=== PATIENT | female | born 1955 | race African-American/Black ===

== ENCOUNTER 2019-05-12 20:59 | Inpatient (IN) | payer OTHER, MEDICAID ==
[~2019-05-12] VITALS: Ht 162.6 cm; Wt 57.2 kg
[~2019-05-12 20:59] MED LIST: ACET500T55 PO; ALPR0.254 PO; AMLO10TA8 PO; AMLO5TAB4 PO; ATOR40TA59 PO; BISA5TAB4 PO; CLON0.2T PO; CLON0.3T PO; CLON0.3T4 PO; DIAZ2TAB PO; DILT180C29 PO; DONE5TAB56 PO; DONE5TAB7 PO; DOXA4TAB3 PO; FOLI0.8T21 PO; FURO-68 PO; FURO40TA4 PO; HYDR-2769 PO; HYDR-2868 PO; HYDR-3135 PO; HYDR100T24 PO; HYDR12.553 PO; LABE300T2 PO; LISI-334 PO; LISI10TA PO; LISI1TAB23 PO; MINO2.5T12 PO; MIRT30TA3 PO; Nicotine 14MG TD; POLY17PO28 PO; POTA20TA4 PO; SEVE800T9 PO; SPIR25TA5 PO; SUCR500T PO; escitalopram oxalate
--- NOTE | 2019-05-12 21:23 | PHYS DOC ---
Past Medical History Past Medical History: CVA, Hypertension, PA, Renal Failure, Stroke Additional Past Medical Histor: Chronic Kidney Disease Past Surgical History: Cholecystectomy, Other Additional Past Surgical Histo: cardiac stents, when stroke fluid had to be drained from brain(per fam), Alcohol Use: None Drug Use: None Adult General Chief Complaint Chief Complaint: DIALYSIS PROBLEM HPI HPI Patient is a 63 year old female who presents with has had not gone to dialysis since . Patient states she did not go in the right. Patient also states that she has not been taking all her medicines and she does not know which one she has been taking. Patient states she has chest pain in the left chest, shortness of air, constipation. She rates her pain a 10 out of 10. Review of Systems Review of Systems Respiratory: Denies cough. shortness of breath [] Cardiovascular: Chest pain All other systems were reviewed and found to be within normal limits, except as documented in this note. Current Medications Current Medications Current Medications Medications (Trade) Dose Ordered Sig/Maria Antonia Start Time Stop Time Status Last Admin Dose Admin Ceftriaxone Sodium (Rocephin) 1 gm 1X ONCE 05/12/19 23:30 05/12/19 23:31 DC 05/12/19 23:34 1 GM Allergies Allergies Allergies Coded Allergies Type Severity Reaction Last Updated Verified hydromorphone Allergy Severe itching, sob 07/18/18 Yes metoprolol Allergy Intermediate Itching 07/18/18 Yes morphine Allergy Intermediate itching, sob 07/18/18 Yes Physical Exam Physical Exam Constitutional: Well developed, well nourished, no acute distress, non-toxic appearance. [] HENT: Normocephalic, atraumatic, bilateral external ears normal, oropharynx moist, no oral exudates, nose normal. [] Eyes: PERRLA, EOMI, conjunctiva normal, no discharge. [] Neck: Normal range of motion, no tenderness, supple, no stridor. [] Cardiovascular:Heart rate regular rhythm, no murmur [] Lungs & Thorax: Bilateral breath sounds clear to auscultation in upper lobes but diminished in lower lobes. [] Abdomen: Bowel sounds normal, soft, generalized tenderness, no masses, no pulsatile masses. [] Skin: Warm, dry, no erythema, no rash. [] Back: No tenderness, no CVA tenderness. [] Extremities: No tenderness, no cyanosis, no clubbing, ROM intact, Bilateral 2+ lower extremity edema. [] Neurologic: Alert and oriented X 3, normal motor function, normal sensory function, no focal deficits noted. [] Psychologic: Affect normal, judgement normal, mood normal. [] Current Patient Data Vital Signs Vital Signs Date Time Temp Pulse Resp B/P (MAP) Pulse Ox O2 Delivery O2 Flow Rate FiO2 05/12/19 23:34 83 26 192/94 (126) 97 Room Air 05/12/19 21:08 98.8 98.8 Lab Values Laboratory Tests Test 05/12/19 22:10 05/12/19 22:35 Urine Collection Type Unknown Urine Color Yellow Urine Clarity Cloudy Urine pH 7.5 Urine Specific [place] 1.010 Urine Protein 100 mg/dL (NEG-TRACE) Urine Glucose (UA) 100 mg/dL (NEG) Urine Ketones (Stick) Negative mg/dL (NEG) Urine Blood Small (NEG) Urine Nitrite Negative (NEG) Urine Bilirubin Negative (NEG) Urine Urobilinogen Dipstick 0.2 mg/dL (0.2 mg/dL) Urine Leukocyte Esterase Small (NEG) Urine RBC 3-5 /HPF (0-2) Urine WBC 11-20 /HPF (0-4) Urine Squamous Epithelial Cells Many /LPF Urine Bacteria Many /HPF (0-FEW) Urine Mucus Mod /LPF White Blood Count 7.0 x10^3/uL (4.0-11.0) Red Blood Count 3.64 x10^6/uL (3.50-5.40) Hemoglobin 11.0 g/dL (12.0-15.5) L Hematocrit 32.6 % (36.0-47.0) L Mean Corpuscular Volume 90 fL (79-100) Mean Corpuscular Hemoglobin 30 pg (25-35) Mean Corpuscular Hemoglobin Concent 34 g/dL (31-37) Red Cell Distribution Width 17.1 % (11.5-14.5) H Platelet Count 240 x10^3/uL (140-400) Neutrophils (%) (Auto) 57 % (31-73) Lymphocytes (%) (Auto) 35 % (24-48) Monocytes (%) (Auto) 5 % (0-9) Eosinophils (%) (Auto) 3 % (0-3) Basophils (%) (Auto) 0 % (0-3) Neutrophils # (Auto) 4.0 x10^3/uL (1.8-7.7) Lymphocytes # (Auto) 2.4 x10^3/uL (1.0-4.8) Monocytes # (Auto) 0.4 x10^3/uL (0.0-1.1) Eosinophils # (Auto) 0.2 x10^3/uL (0.0-0.7) Basophils # (Auto) 0.0 x10^3/uL (0.0-0.2) Sodium Level 142 mmol/L (136-145) Potassium Level 5.7 mmol/L (3.5-5.1) H Chloride Level 102 mmol/L (98-107) Carbon Dioxide Level 22 mmol/L (21-32) Anion Gap 18 (6-14) H Blood Urea Nitrogen 88 mg/dL (7-20) H Creatinine 11.7 mg/dL (0.6-1.0) H Estimated GFR (Cockcroft-Gault) 4.0 BUN/Creatinine Ratio 8 (6-20) Glucose Level 96 mg/dL (70-99) Calcium Level 9.6 mg/dL (8.5-10.1) Total Bilirubin 0.3 mg/dL (0.2-1.0) Aspartate Amino Transferase (AST) 9 U/L (15-37) L Alanine Aminotransferase (ALT) 12 U/L (14-59) L Alkaline Phosphatase 153 U/L (46-116) H Troponin I Quantitative 0.034 ng/mL (0.000-0.055) Total Protein 8.0 g/dL (6.4-8.2) Albumin 3.4 g/dL (3.4-5.0) Albumin/Globulin Ratio 0.7 (1.0-1.7) L Laboratory Tests 05/12/19 22:35 Laboratory Tests 05/12/19 22:35 EKG EKG SINUS RHYTHM, NO STEMI, LVH REPOLARIZATION[] Interpretation Time: [address] Mejia Radiology/Procedures Radiology/Procedures [] Impressions: [facility] [address] [place] [address] IMAGING REPORT Signed PATIENT: OLLIE LOCO ACCOUNT: [id number] : 1955 LOCATION: ER AGE: 63 SEX: F EXAM STATUS: PRE ER ORD. PHYSICIAN: CHRIS SAN APRN REASON: chest pain, soa PROCEDURE: PORTABLE CHEST 1V PORTABLE CHEST 1V History: Chest pain. Shortness of breath. Comparison: April 14, 2019 Findings: Mild diffuse interstitial thickening, decreased compared to prior. No pleural effusion. Enlarged cardiac silhouette, unchanged. No pneumothorax. Impression: 1. Mild diffuse interstitial thickening, may represent early pulmonary edema. Findings are overall decreased compared to prior. Electronically signed by: Benny Castle DO (05/12/2019 9:44 PM) [facility] DICTATED and SIGNED BY: BENNY CASTLE DO DATE: 05/12/192143 Course & Med Decision Making Course & Med Decision Making Patient is a 63 year old female who presents with has had not gone to dialysis since . Patient states she did not go in the right. Patient also states that she has not been taking all her medicines and she does not know which one she has been taking. Patient states she has chest pain in the left chest, shortness of air, constipation. She rates her pain a 10 out of 10. Lungs are cleared up her lobes but diminished in lower lobes bilaterally. Patient has 3+ edema to bilateral lower extremities. Abdomen is soft but tender all over. Blake valencia states she still makes a small amount of urine. Patient smells strongly of urine. Patient speaks in full clear sentences. Patient is able to ambulate from the wheelchair to her bed. Patient lives alone. Patient is alert and oriented. Skin is pink warm and dry. PERRLA. Patient has a history of kidney disease, hypertension, stroke without deficit, high cholesterol, heart attack. Patient denies headache, syncope, dizziness, weakness, numbness or tingling, visual changes, nausea, vomiting, abdominal pain. Patient states I just can't breathe. Chest Xray shows 1. Mild diffuse interstitial thickening, may represent early pulmonary edema. Findings are overall decreased compared to prior. Urinalysis shows UTI. Patient is ordered Rocephin. I have spoken to Dr. Bone who states that the patient will get dialysis in the morning. I Have also spoken to Dr. Jones for admission. Dragon Disclaimer Dragon Disclaimer This electronic medical record was generated, in whole or in part, using a voice recognition dictation system. The HEART Score for CP Pts HEART Score for Chest Pain: HEART Score for Chest Pain Response (Comments) Value History Moderately Suspicious 1 ECG Nonspecific Repolarizatio 1 Age >45 - < 65 1 Risk Factors >3 Risk Factors or Hx CAD 2 Troponin < Normal Limit 0 Total 5 Risk Factors: Risk Factors: DM, Current or recent (<one month) smoker, HTN, HLP, family history of CAD, obesity. Risk Scores: Score 0 - 3: 2.5% MACE over next 6 weeks - Discharge Home Score 4 - 6: 20.3% MACE over next 6 weeks - Admit for Clinical Observation Score 7 - 10: 72.7% MACE over next 6 weeks - Early Invasive Strategies Departure Departure Impression: Primary Impression: Hyperkalemia Additional Impressions: Missed dialysis Chest pain Disposition: ADMITTED INPATIENT Admitting Physician: Camilo Bolaños Parra, Michael Condition: STABLE Referrals: Tonya BOLAÑOS MD (PCP) Problem Qualifiers Additional Impressions: Chest pain Chest pain type: unspecified Qualified Codes: R07.9 - Chest pain, unspecified CHRIS SAN [employer] FINISHER May 12, 2019 21:23
--- NOTE | 2019-05-12 21:47 | RAD ---
PORTABLE CHEST 1V History: Chest pain. Shortness of breath. Comparison: April 14, 2019 Findings: Mild diffuse interstitial thickening, decreased compared to prior. No pleural effusion. Enlarged cardiac silhouette, unchanged. No pneumothorax. Impression: 1. Mild diffuse interstitial thickening, may represent early pulmonary edema. Findings are overall decreased compared to prior. Electronically signed by: Benny Castle DO (05/12/2019 9:44 PM) [facility]
[2019-05-12 22:30] LABS: BILIRUBIN,URINE NEGATIVE (NEG); CLARITY,URINE CLOUDY; COLOR,URINE YELLOW; NITRITE,URINE NEGATIVE (NEG); PH,URINE 7.5; PROTEIN,URINE 100 mg/dL (NEG-TRACE); UROBILINOGEN,URINE 0.2 mg/dL (0.2 mg/dL)
[2019-05-12 22:34] LABS: SQUAMOUS EPITHELIAL CELL,UR MANY /LPF
[2019-05-12 22:35] LABS: BACTERIA,URINE MANY /HPF (0-FEW)
[2019-05-12 22:46] LABS: BASO % 0 % (0-3); EOS # 0.2 x10^3/uL (0.0-0.7); EOS % 3 % (0-3); HEMATOCRIT 32.6 % (36.0-47.0); LYMPH # 2.4 x10^3/uL (1.0-4.8); LYMPH % 35 % (24-48); MEAN CORPUSCULAR HEMOGLOBIN 30 pg (25-35); MEAN CORPUSCULAR HGB CONC 34 g/dL (31-37); MEAN CORPUSCULAR VOLUME 90 fL (79-100); MONO # 0.4 x10^3/uL (0.0-1.1); MONO % 5 % (0-9); NEUT % 57 % (31-73); PLATELET COUNT 240 x10^3/uL (140-400); RED BLOOD COUNT 3.64 x10^6/uL (3.50-5.40); RED CELL DISTRIBUTION WIDTH 17.1 % (11.5-14.5)
[2019-05-12 22:55] LABS: CALCIUM 9.6 mg/dL (8.5-10.1); CREATININE 11.7 mg/dL (0.6-1.0); POTASSIUM 5.7 mmol/L (3.5-5.1)
[2019-05-12 23:00] LABS: ALBUMIN 3.4 g/dL (3.4-5.0); ALBUMIN/GLOBULIN RATIO 0.7 (1.0-1.7); TOTAL BILIRUBIN 0.3 mg/dL (0.2-1.0)
[2019-05-12] MEDS ORDERED: cefTRIAXone IV Push 1 GM VIAL. IVP ONE (23:30)
[2019-05-12] MEDS ORDERED: ONDANSETRON PF 4 MG/2 ML VIAL. IV PRN (23:45)
[2019-05-13] MEDS: fentaNYL PF VIAL 100 MCG/2 ML VIAL IV PRN ×3 (00:30→22:51)
[2019-05-13 01:05] VITALS: BP 221/114
[2019-05-13] MEDS ORDERED: ACETAMINOPHEN 500 MG TABLET PO PRN ×2 (02:00→09:30)
[2019-05-13] MEDS ORDERED: hydrALAZINE 20 MG/ML VIAL. IVP PRN (02:00)
[2019-05-13] MEDS ORDERED: ALPRAZolam 0.25 MG TABLET PO PRN (02:00)
[2019-05-13] MEDS ORDERED: hydrALAZINE 20 MG/ML VIAL. IVP ONE (02:30)
[2019-05-13] MEDS ORDERED: cloNIDine HCL 0.2 MG TABLET PO ONE (02:30)
[2019-05-13 03:58] VITALS: BP 175/83
--- NOTE | 2019-05-13 06:19 | EKG ---
[facility] [address] [place] [address] Test Date: 2019-05-12 Test Time: 21:29:32 Pat Name: OLLIE LOCO Department: Room: 4 Gender: F Clinical Academic Allergist: : 1955 Requested By: CRHIS SAN Order Number: [id number] Reading MD: Yariel Cortes MD Measurements Intervals [place] Rate: 84 P: 28 MT: 138 QRS: -16 QRSD: 102 T: 116 QT: 366 QTc: 436 Interpretive Statements SINUS RHYTHM LVH WITH REPOLARIZATION ABNORMALITY Electronically Signed On 05-19-2019 11:36:35 CDT by Yariel Cortes MD
[2019-05-13 07:00] VITALS: BP 159/89
[2019-05-13] MEDS: NON FORMULARY ITEM (Sucroferric Oxyhydroxide (Velphoro) 500 MG) PO SCH ×3 (09:00→21:00)
[2019-05-13] MEDS: DOXAZOSIN MESYLATE 4 MG TABLET. PO SCH (09:18)
[2019-05-13] MEDS: FUROSEMIDE 40 MG TABLET. PO SCH (09:18)
[2019-05-13] MEDS: amLODIPine BESYLATE 10 MG TABLET PO SCH (09:19)
[2019-05-13] MEDS ORDERED: IV NORMAL SALINE 1000ML BAG 1,000 ML IV PRN ×2 (09:28)
[2019-05-13] MEDS ORDERED: DIALYSIS PATIENT. MC PRN ×2 (09:30)
[2019-05-13] MEDS ORDERED: ALBUMIN HUMAN 25% 200 ML IV PRN (09:30)
[2019-05-13] MEDS ORDERED: diphenhydrAMINE 50 MG/ML VIAL IV PRN ×2 (09:30)
--- NOTE | 2019-05-13 09:36 | NUR ---
SS following for discharge planning. SS reviewed pt chart. Pt is from home and is currently on room air. Pt has hemodialysis at [facility], ; fax [phone], T, TH, and Sat at 0545. SS will continue to follow for discharge planning.
--- NOTE | 2019-05-13 11:07 | PDOC2 ---
YOANJOSE RICO DOMENICO 05/13/19 1107: CARDIAC CONSULT DATE OF CONSULT Date of Consult DATE: 05/13/19 TIME: 11:00 REASON FOR CONSULT Reason for Consult: Chest pain REFERRING PHYSICIAN Referring Physician: Isatu Bob APRN SOURCE Source: Chart review, Patient HISTORY OF PRESENT ILLNESS HISTORY OF PRESENT ILLNESS This is a 63 yo female who presented secondary to chest pain and shortness of breath. Hasnt been feeling well, recently. Has been weak. Missed HD and Saturday and has not been taking her medications. Reports stabbing pain in her central chest. Slightly short of breath for the last couple of days. No dizziness, diaphoresis, palpitations, or nausea/vomiting. Blood pressure significantly elevated upon arrival. No further pain since admission. PAST MEDICAL HISTORY Cardiovascular: CAD, CHF, HTN, Hyperlipidemia, Valve insufficiency Pulmonary: COPD CENTRAL NERVOUS SYSTEM: CVA, Dementia, Other (hydrocephalus ) Psych: Anxiety, Depression Renal/: Chronic renal failure (on HD) Endocrine: Hypothyroidism PAST SURGICAL HISTORY Past Surgical History: Cholecystectomy FAMILY HISTORY Family History: Cancer, Hypertension SOCIAL HISTORY Smoke: 1 pack per day ALCOHOL: none Drugs: None Lives: Alone CURRENT MEDICATIONS CURRENT MEDICATIONS Current Medications Medications (Trade) Dose Ordered Sig/Maria Antonia Route PRN Reason Start Time Stop Time Status Last Admin Dose Admin Ceftriaxone Sodium (Rocephin) 1 gm 1X ONCE IVP 05/12/19 23:30 05/12/19 23:31 DC 05/12/19 23:34 Ondansetron HCl (Zofran) 4 mg PRN Q8HRS PRN IV NAUSEA/VOMITING 05/12/19 23:45 05/13/19 23:44 05/13/19 00:29 Fentanyl Citrate (Fentanyl 2ml Vial) 50 mcg PRN Q1HR PRN IV PAIN 05/12/19 23:45 05/13/19 23:44 05/13/19 00:30 Hydralazine HCl (Apresoline Inj) 25 mg 1X ONCE IVP 05/13/19 02:30 05/13/19 02:31 DC 05/13/19 02:24 Amlodipine Besylate (Norvasc) 10 mg DAILY PO 05/13/19 09:00 05/13/19 09:19 Doxazosin Mesylate (Cardura) 4 mg DAILY PO 05/13/19 09:00 05/13/19 09:18 Furosemide (Lasix) 40 mg DAILY PO 05/13/19 09:00 05/13/19 09:18 Hydralazine HCl (Apresoline) 100 mg BID PO 05/13/19 09:00 05/13/19 09:19 Hydralazine HCl (Apresoline) 100 mg 1X ONCE PO 05/13/19 02:30 05/13/19 02:31 DC 05/13/19 02:30 Clonidine HCl (Catapres) 0.2 mg 1X ONCE PO 05/13/19 02:30 05/13/19 02:31 DC 05/13/19 02:29 ALLERGIES ALLERGIES: Coded Allergies: hydromorphone (Verified Allergy, Severe, itching, sob, 07/18/18) metoprolol (Verified Allergy, Intermediate, Itching, 07/18/18) morphine (Verified Allergy, Intermediate, itching, sob, 07/18/18) ROS Review of System 14 point ROS conducted with pertinent positives noted above in HPI. PHYSICAL EXAM General: Alert, Oriented X3, Cooperative, No acute distress HEENT: Atraumatic, Mucous membr. moist/pink, Other (poor dentition ) Lungs: Clear to auscultation, Other (diminished bases ) Heart: Regular rate, Normal S1, Normal S2 Abdomen: Soft, No tenderness Extremities: Other (trace bilateral LE edema ) Skin: No significant lesion Neuro: Normal speech, Sensation intact Psych/Mental Status: Mental status NL, Other (flat affect ) MUSCULOSKELETAL: Osteoarthritic changes both hands VITALS/I&O VITALS/I&O: Vital Signs Date Time Temp Pulse Resp B/P (MAP) Pulse Ox O2 Delivery O2 Flow Rate FiO2 05/13/19 09:19 78 159/89 05/13/19 07:00 98.7 18 99 Room Air 98.7 I & O 05/12/19 05/12/19 05/13/19 15:00 23:00 07:00 Intake Total 200 ml Balance 200 ml LABS Lab: Laboratory Tests Test 05/12/19 22:10 05/12/19 22:35 05/13/19 02:58 Urine Collection Type Unknown Urine Color Yellow Urine Clarity Cloudy Urine pH 7.5 Urine Specific [place] 1.010 Urine Protein 100 mg/dL (NEG-TRACE) Urine Glucose (UA) 100 mg/dL (NEG) Urine Ketones (Stick) Negative mg/dL (NEG) Urine Blood Small (NEG) Urine Nitrite Negative (NEG) Urine Bilirubin Negative (NEG) Urine Urobilinogen Dipstick 0.2 mg/dL (0.2 mg/dL) Urine Leukocyte Esterase Small (NEG) Urine RBC 3-5 /HPF (0-2) Urine WBC 11-20 /HPF (0-4) Urine Squamous Epithelial Cells Many /LPF Urine Bacteria Many /HPF (0-FEW) Urine Mucus Mod /LPF White Blood Count 7.0 x10^3/uL (4.0-11.0) Red Blood Count 3.64 x10^6/uL (3.50-5.40) Hemoglobin 11.0 g/dL (12.0-15.5) L Hematocrit 32.6 % (36.0-47.0) L Mean Corpuscular Volume 90 fL (79-100) Mean Corpuscular Hemoglobin 30 pg (25-35) Mean Corpuscular Hemoglobin Concent 34 g/dL (31-37) Red Cell Distribution Width 17.1 % (11.5-14.5) H Platelet Count 240 x10^3/uL (140-400) Neutrophils (%) (Auto) 57 % (31-73) Lymphocytes (%) (Auto) 35 % (24-48) Monocytes (%) (Auto) 5 % (0-9) Eosinophils (%) (Auto) 3 % (0-3) Basophils (%) (Auto) 0 % (0-3) Neutrophils # (Auto) 4.0 x10^3/uL (1.8-7.7) Lymphocytes # (Auto) 2.4 x10^3/uL (1.0-4.8) Monocytes # (Auto) 0.4 x10^3/uL (0.0-1.1) Eosinophils # (Auto) 0.2 x10^3/uL (0.0-0.7) Basophils # (Auto) 0.0 x10^3/uL (0.0-0.2) Sodium Level 142 mmol/L (136-145) Potassium Level 5.7 mmol/L (3.5-5.1) H Chloride Level 102 mmol/L (98-107) Carbon Dioxide Level 22 mmol/L (21-32) Anion Gap 18 (6-14) H Blood Urea Nitrogen 88 mg/dL (7-20) H Creatinine 11.7 mg/dL (0.6-1.0) H Estimated GFR (Cockcroft-Gault) 4.0 BUN/Creatinine Ratio 8 (6-20) Glucose Level 96 mg/dL (70-99) Calcium Level 9.6 mg/dL (8.5-10.1) Total Bilirubin 0.3 mg/dL (0.2-1.0) Aspartate Amino Transferase (AST) 9 U/L (15-37) L Alanine Aminotransferase (ALT) 12 U/L (14-59) L Alkaline Phosphatase 153 U/L (46-116) H Troponin I Quantitative 0.034 ng/mL (0.000-0.055) 0.028 ng/mL (0.000-0.055) Total Protein 8.0 g/dL (6.4-8.2) Albumin 3.4 g/dL (3.4-5.0) Albumin/Globulin Ratio 0.7 (1.0-1.7) L Triglycerides Level 104 mg/dL (0-150) Cholesterol Level 187 mg/dL (0-200) LDL Cholesterol, Calculated 103 mg/dL (0-100) H VLDL Cholesterol, Calculated 21 mg/dL (0-40) Non-HDL Cholesterol Calculated 124 mg/dL (0-129) HDL Cholesterol 63 mg/dL (40-60) H Cholesterol/HDL Ratio 3.0 Thyroid Stimulating Hormone (TSH) 0.844 uIU/mL (0.358-3.74) Laboratory Tests 05/12/19 22:35 Laboratory Tests 05/12/19 22:35 ASSESSMENT/PLAN ASSESSMENT/PLAN 1. Chest pain, atypical. AMI ruled out. Most probably secondary to hypertensive emergency 2. Accelerated hypertension; secondary to medication noncompliance 3. Acute on chronic diastolic CHF; secondary to missed HD and hypertensive emergency 4. CAD s/p remote PCI/stent 5. ESRD on HD, hyperkalemia 6. Hyperlipidemia; statin 7. Hypothyroidism 8. Noncompliance Recommendations Fluid offloading via HD Echo to assess LV systolic function Lipid panel Add ASA Reinforced medical compliance Secondary prevention. Allergy to BB Supportive care EVANS HERNANDEZ MD 05/14/190: CARDIAC CONSULT ASSESSMENT/PLAN ASSESSMENT/PLAN Late entry for 23/04/2019 Pt. seen and examined. Agree with above GERMAN TUTOR note. Patient deciding between hospice care versus continued aggressive measures. If she chooses continued aggressive measures and has chest pain again after she is complaint with HD and meds, could then at that time consider outpt stress testing. Otherwise, continued supportive care. Pls call with questions. JOSE MILTON APRN May 13, 2019 11:07 EVANS HERNANDEZ MD May 14, 2019 21:20
--- NOTE | 2019-05-13 11:26 | HP ---
ADMIT DATE: 05/12/2019 CHIEF COMPLAINT: Chest pain, shortness of breath. HISTORY OF PRESENT ILLNESS AND HOSPITAL COURSE: This patient is a 63-year-old female who is currently on dialysis with end-stage renal disease. She states that she had missed her last dialysis and has not been taking her medications regularly. She came to the ER, was found to have some evidence of diastolic congestive heart failure and hyperkalemia. Due to these findings, she was admitted for urgent dialysis and Cardiology evaluation. Upon interviewing, the patient is unsure whether she wants to proceed with dialysis. She was told that this would eventually lead to her and that she may want to consider hospice care if this is her choice. PAST MEDICAL HISTORY: Significant for: 1. End-stage renal disease, on dialysis. 2. Severe pulmonary hypertension. 3. Coronary artery disease. 4. History of diastolic congestive heart failure. 5. Hypertension. 6. History of [place]. 7. COPD. 8. CVA. 9. Memory deficit consistent with dementia. 10. IBS. 11. Bipolar disorder. PAST SURGICAL HISTORY: Significant for cholecystectomy and coronary artery bypass graft. FAMILY HISTORY: Significant for cancer, but unspecified. SOCIAL HISTORY: The patient does not use alcohol, drugs, or smoke. REVIEW OF SYSTEMS: The patient states she has been having chest pain, shortness of breath since skipping dialysis. The patient was severely hypertensive in the Emergency Room and upon early hospitalization. PHYSICAL EXAMINATION: GENERAL: This is a poorly kempt female, in no apparent distress on my exam. She is alert and oriented on my exam. HEENT: Reveals very poor dentition. NECK: Supple. CARDIAC: Reveals a regular rate and rhythm. LUNGS: Revealed crackles in the bases. ABDOMEN: Soft and nontender without masses. EXTREMITIES: There are 1+ pulses with 1+ pitting edema. NEUROLOGIC: Showed no unilateral findings. ASSESSMENT: 1. Acute on chronic diastolic congestive heart failure. 2. Hypertensive emergency. 3. Hyperkalemia. 4. End-stage renal disease, on dialysis. 5. Noncompliance. 6. Chest pain. 7. Coronary artery disease. PLAN: To proceed with emergent dialysis if the patient agrees. Consider palliative care consult if the patient wishes to discontinue dialysis. Proceed with cardiac evaluation for chest pain and assistance with treatment of congestive heart failure. Proceed with PT and OT modalities due to decreased mobility. IVTEH DAVIS MD DR: Alan JOB#: [id number] / [id number]
[2019-05-13] MEDS: cloNIDine HCL 0.2 MG TABLET PO SCH ×2 (14:12→22:46)
[2019-05-13] MEDS: FOLIC/VIT B COMP W-C (RENAL) TABLET. PO SCH (14:12)
[2019-05-13 15:12] VITALS: BP 125/66
--- NOTE | 2019-05-13 15:14 | PDOC2 ---
CONSULT Date of Consult Date of Consult DATE: 05/13/19 TIME: 15:09 Reason for Consult Reason for Consult: HIGH K AND SOB Referring Physician Referring Physician: RYAN Identification/Chief Complaint Chief Complaint SOB Source Source: Chart review History of Present Illness Reason for Visit: THIS IS A 63 YR OLD ESRD PT WITH SOB. SHE HAS ESRD AND IS ON OP HD ON TTS. HER LAST HD WAS LAST SATURDAY. ON ADMIT SHE HAS A HIGH K OF 6.0 AND SHE IS NOTED TO HAVE CHF. SHE ALSO COMPLAINED OF CHEST PAIN. SHE IS UNDERGOING CARDIOLOGY EVALUATION. LABS ARE C/W ESRD. SHE IS POOR HISTORIAN AND HAS ROUTINE CONFUSION AND HX OF BIPOLAR DISORDER. ESRD IS DUE TO HTN Past Medical History Cardiovascular: CAD, CHF, HTN, Hyperlipidemia, Valve insufficiency Pulmonary: COPD CENTRAL NERVOUS SYSTEM: CVA, Dementia, Other (hydrocephalus ) GI: Irritable bowel disease Heme/Onc: No pertinent hx Hepatobiliary: No pertinent hx Psych: Anxiety, Depression Musculoskeletal: Osteoarthritis Rheumatologic: No pertinent hx Infectious disease: No pertinent hx Renal/: Chronic renal failure (on HD) Endocrine: Hypothyroidism, Hyperparathyroidism Past Surgical History Past Surgical History: Cholecystectomy Family History Family History: Cancer, Hypertension Social History Social History: Other 1 pack per day ALCOHOL: none Drugs: None Lives: Alone Current Problem List Problem List Problems Medical Problems: (1) Acute on chronic diastolic (congestive) heart failure Status: Acute (2) Hyperkalemia Status: Acute Current Medications Current Medications Current Medications Ceftriaxone Sodium (Rocephin) 1 gm 1X ONCE IVP Last administered on 05/12/19at 23:34; Start 05/12/19 at 23:30; Stop 05/12/19 at 23:31; Status DC Ondansetron HCl (Zofran) 4 mg PRN Q8HRS PRN IV NAUSEA/VOMITING Last administered on 05/13/19at 00:29; Start 05/12/19 at 23:45; Stop 05/13/19 at 23:44 Fentanyl Citrate (Fentanyl 2ml Vial) 50 mcg PRN Q1HR PRN IV PAIN Last administered on 05/13/19at 00:30; Start 05/12/19 at 23:45; Stop 05/13/19 at 23:44 Hydralazine HCl (Apresoline Inj) 25 mg 1X ONCE IVP Last administered on 05/13/19at 02:24; Start 05/13/19 at 02:30; Stop 05/13/19 at 02:31; Status DC Hydralazine HCl (Apresoline Inj) 10 mg PRN Q3HRS PRN IVP ELEVATED BP, SEE COMMENTS; Start 05/13/19 at 02:00 Acetaminophen (Tylenol) 1,000 mg PRN Q6HRS PRN PO MILD pain; Start 05/13/19 at 02:00 Alprazolam (Xanax) 0.25 mg PRN BID PRN PO ANXIETY / AGITATION; Start 05/13/19 at 02:00 Amlodipine Besylate (Norvasc) 10 mg DAILY PO Last administered on 05/13/19at 09:19; Start 05/13/19 at 09:00 Atorvastatin Calcium (Lipitor) 40 mg QHS PO ; Start 05/13/19 at 21:00 Clonidine HCl (Catapres) 0.2 mg BID PO Last administered on 05/13/19at 14:12; Start 05/13/19 at 09:00 Donepezil HCl (Aricept) 5 mg HS PO ; Start 05/13/19 at 21:00 Doxazosin Mesylate (Cardura) 4 mg DAILY PO Last administered on 05/13/19at 09:18; Start 05/13/19 at 09:00 Vitamin B Complex/ Vitamin C (Jolie-Rossana) 1 tab DAILY PO Last administered on 05/13/19at 14:12; Start 05/13/19 at 09:00 Furosemide (Lasix) 40 mg DAILY PO Last administered on 05/13/19at 09:18; Start 05/13/19 at 09:00 Hydralazine HCl (Apresoline) 100 mg BID PO Last administered on 05/13/19at 09:19; Start 05/13/19 at 09:00 Non-Formulary Medication (Sucroferric Oxyhydroxide (Velphoro)) 500 mg TID PO ; Start 05/13/19 at 09:00; Status UNV Hydralazine HCl (Apresoline) 100 mg 1X ONCE PO Last administered on 05/13/19at 02:30; Start 05/13/19 at 02:30; Stop 05/13/19 at 02:31; Status DC Clonidine HCl (Catapres) 0.2 mg 1X ONCE PO Last administered on 05/13/19at 02:29; Start 05/13/19 at 02:30; Stop 05/13/19 at 02:31; Status DC Sodium Chloride 1,000 ml @ 1,000 mls/hr Q1H PRN IV hypotension; Start 05/13/19 at 09:28; Stop 05/13/19 at 15:27 Albumin Human 200 ml @ 200 mls/hr 1X PRN PRN IV Hypotension; Start 05/13/19 at 09:30; Stop 05/13/19 at 15:29 Acetaminophen (Tylenol) 500 mg 1X PRN PRN PO MILD PAIN / TEMP; Start 05/13/19 at 09:30; Stop 05/14/19 at 09:29 Diphenhydramine HCl (Benadryl) 25 mg 1X PRN PRN IV ITCHING; Start 05/13/19 at 09:30; Stop 05/14/19 at 09:29 Diphenhydramine HCl (Benadryl) 25 mg 1X PRN PRN IV ITCHING; Start 05/13/19 at 09:30; Stop 05/14/19 at 09:29 Sodium Chloride 1,000 ml @ 400 mls/hr Q2H30M PRN IV PATENCY; Start 05/13/19 at 09:28; Stop 05/13/19 at 21:27 Info (PHARMACY MONITORING -- do not chart) 1 each PRN DAILY PRN MC SEE COMMENTS; Start 05/13/19 at 09:30; Stop 05/13/19 at 12:08; Status DC Info (PHARMACY MONITORING -- do not chart) 1 each PRN DAILY PRN MC SEE COMMENTS; Start 05/13/19 at 09:30 Aspirin (Ecotrin) 81 mg DAILYWBKFT PO ; Start 05/14/19 at 08:00 Active Scripts Active Hydralazine Hcl 100 Mg Tablet 1 Tab PO BID Alprazolam 0.25 Mg Tablet 0.25 Mg PO PRN BID PRN 30 Days Jolie-Rossana Tablet (Folic Acid/Vitamin B Comp W-C) 0.8 Mg Tablet 1 Tab PO DAILY 30 Days [place]ap (Acetaminophen) 500 Mg Tablet 1,000 Mg PO PRN Q6HRS PRN 30 Days [place] 10-325 Tablet (Acetaminophen/Hydrocodone Bitart) 1 Each Tablet 1 Tab PO PRN Q6HRS PRN 30 Days Atorvastatin Calcium 40 Mg Tablet 40 Mg PO QHS Aricept (Donepezil Hcl) 5 Mg Tablet 5 Mg PO HS 30 Days Reported Clonidine Hcl 0.2 Mg Tablet 1 Tab PO BID Doxazosin Mesylate 4 Mg Tablet 1 Tab PO DAILY Amlodipine Besylate 10 Mg Tablet 10 Mg PO DAILY Furosemide 40 Mg Tablet 1 Tab PO DAILY Velphoro (Sucroferric Oxyhydroxide) 500 Mg Tab.chew 500 Mg PO TID Allergies Allergies: Coded Allergies: hydromorphone (Verified Allergy, Severe, itching, sob, 07/18/18) metoprolol (Verified Allergy, Intermediate, Itching, 07/18/18) morphine (Verified Allergy, Intermediate, itching, sob, 07/18/18) ROS Review of System UNRELIABLE EXCEPT FOR SOB AND CHEST PAIN. FULL ROS ATTEMPTED Physical Exam General: Alert, Cooperative, mild distress HEENT: Atraumatic, PERRLA, Other Lungs: Other (DECREASED AT BASES) Heart: Regular rate Abdomen: Normal bowel sounds, Soft Extremities: No clubbing Neuro: Normal speech, Sensation intact Psych/Mental Status: Mental status NL, Mood NL MUSCULOSKELETAL: No joint tenderness, No deformity, No swelling Vitals VITALS Vital Signs Date Time Temp Pulse Resp B/P (MAP) Pulse Ox O2 Delivery O2 Flow Rate FiO2 05/13/19 14:12 78 134/73 05/13/19 08:00 Room Air 05/13/19 07:00 98.7 18 99 98.7 Labs Labs Laboratory Tests Test 05/12/19 22:10 05/12/19 22:35 05/13/19 02:58 Urine Collection Type Unknown Urine Color Yellow Urine Clarity Cloudy Urine pH 7.5 Urine Specific [place] 1.010 Urine Protein 100 mg/dL (NEG-TRACE) Urine Glucose (UA) 100 mg/dL (NEG) Urine Ketones (Stick) Negative mg/dL (NEG) Urine Blood Small (NEG) Urine Nitrite Negative (NEG) Urine Bilirubin Negative (NEG) Urine Urobilinogen Dipstick 0.2 mg/dL (0.2 mg/dL) Urine Leukocyte Esterase Small (NEG) Urine RBC 3-5 /HPF (0-2) Urine WBC 11-20 /HPF (0-4) Urine Squamous Epithelial Cells Many /LPF Urine Bacteria Many /HPF (0-FEW) Urine Mucus Mod /LPF White Blood Count 7.0 x10^3/uL (4.0-11.0) Red Blood Count 3.64 x10^6/uL (3.50-5.40) Hemoglobin 11.0 g/dL (12.0-15.5) Hematocrit 32.6 % (36.0-47.0) Mean Corpuscular Volume 90 fL (79-100) Mean Corpuscular Hemoglobin 30 pg (25-35) Mean Corpuscular Hemoglobin Concent 34 g/dL (31-37) Red Cell Distribution Width 17.1 % (11.5-14.5) Platelet Count 240 x10^3/uL (140-400) Neutrophils (%) (Auto) 57 % (31-73) Lymphocytes (%) (Auto) 35 % (24-48) Monocytes (%) (Auto) 5 % (0-9) Eosinophils (%) (Auto) 3 % (0-3) Basophils (%) (Auto) 0 % (0-3) Neutrophils # (Auto) 4.0 x10^3/uL (1.8-7.7) Lymphocytes # (Auto) 2.4 x10^3/uL (1.0-4.8) Monocytes # (Auto) 0.4 x10^3/uL (0.0-1.1) Eosinophils # (Auto) 0.2 x10^3/uL (0.0-0.7) Basophils # (Auto) 0.0 x10^3/uL (0.0-0.2) Sodium Level 142 mmol/L (136-145) Potassium Level 5.7 mmol/L (3.5-5.1) Chloride Level 102 mmol/L (98-107) Carbon Dioxide Level 22 mmol/L (21-32) Anion Gap 18 (6-14) Blood Urea Nitrogen 88 mg/dL (7-20) Creatinine 11.7 mg/dL (0.6-1.0) Estimated GFR (Cockcroft-Gault) 4.0 BUN/Creatinine Ratio 8 (6-20) Glucose Level 96 mg/dL (70-99) Calcium Level 9.6 mg/dL (8.5-10.1) Total Bilirubin 0.3 mg/dL (0.2-1.0) Aspartate Amino Transf (AST/SGOT) 9 U/L (15-37) Alanine Aminotransferase (ALT/SGPT) 12 U/L (14-59) Alkaline Phosphatase 153 U/L (46-116) Troponin I Quantitative 0.034 ng/mL (0.000-0.055) 0.028 ng/mL (0.000-0.055) Total Protein 8.0 g/dL (6.4-8.2) Albumin 3.4 g/dL (3.4-5.0) Albumin/Globulin Ratio 0.7 (1.0-1.7) Triglycerides Level 104 mg/dL (0-150) Cholesterol Level 187 mg/dL (0-200) LDL Cholesterol, Calculated 103 mg/dL (0-100) VLDL Cholesterol, Calculated 21 mg/dL (0-40) Non-HDL Cholesterol Calculated 124 mg/dL (0-129) HDL Cholesterol 63 mg/dL (40-60) Cholesterol/HDL Ratio 3.0 Thyroid Stimulating Hormone (TSH) 0.844 uIU/mL (0.358-3.74) Laboratory Tests Test 05/12/19 22:10 05/12/19 22:35 05/13/19 02:58 Urine Collection Type Unknown Urine Color Yellow Urine Clarity Cloudy Urine pH 7.5 Urine Specific [place] 1.010 Urine Protein 100 mg/dL (NEG-TRACE) Urine Glucose (UA) 100 mg/dL (NEG) Urine Ketones (Stick) Negative mg/dL (NEG) Urine Blood Small (NEG) Urine Nitrite Negative (NEG) Urine Bilirubin Negative (NEG) Urine Urobilinogen Dipstick 0.2 mg/dL (0.2 mg/dL) Urine Leukocyte Esterase Small (NEG) Urine RBC 3-5 /HPF (0-2) Urine WBC 11-20 /HPF (0-4) Urine Squamous Epithelial Cells Many /LPF Urine Bacteria Many /HPF (0-FEW) Urine Mucus Mod /LPF White Blood Count 7.0 x10^3/uL (4.0-11.0) Red Blood Count 3.64 x10^6/uL (3.50-5.40) Hemoglobin 11.0 g/dL (12.0-15.5) Hematocrit 32.6 % (36.0-47.0) Mean Corpuscular Volume 90 fL (79-100) Mean Corpuscular Hemoglobin 30 pg (25-35) Mean Corpuscular Hemoglobin Concent 34 g/dL (31-37) Red Cell Distribution Width 17.1 % (11.5-14.5) Platelet Count 240 x10^3/uL (140-400) Neutrophils (%) (Auto) 57 % (31-73) Lymphocytes (%) (Auto) 35 % (24-48) Monocytes (%) (Auto) 5 % (0-9) Eosinophils (%) (Auto) 3 % (0-3) Basophils (%) (Auto) 0 % (0-3) Neutrophils # (Auto) 4.0 x10^3/uL (1.8-7.7) Lymphocytes # (Auto) 2.4 x10^3/uL (1.0-4.8) Monocytes # (Auto) 0.4 x10^3/uL (0.0-1.1) Eosinophils # (Auto) 0.2 x10^3/uL (0.0-0.7) Basophils # (Auto) 0.0 x10^3/uL (0.0-0.2) Sodium Level 142 mmol/L (136-145) Potassium Level 5.7 mmol/L (3.5-5.1) Chloride Level 102 mmol/L (98-107) Carbon Dioxide Level 22 mmol/L (21-32) Anion Gap 18 (6-14) Blood Urea Nitrogen 88 mg/dL (7-20) Creatinine 11.7 mg/dL (0.6-1.0) Estimated GFR (Cockcroft-Gault) 4.0 BUN/Creatinine Ratio 8 (6-20) Glucose Level 96 mg/dL (70-99) Calcium Level 9.6 mg/dL (8.5-10.1) Total Bilirubin 0.3 mg/dL (0.2-1.0) Aspartate Amino Transf (AST/SGOT) 9 U/L (15-37) Alanine Aminotransferase (ALT/SGPT) 12 U/L (14-59) Alkaline Phosphatase 153 U/L (46-116) Troponin I Quantitative 0.034 ng/mL (0.000-0.055) 0.028 ng/mL (0.000-0.055) Total Protein 8.0 g/dL (6.4-8.2) Albumin 3.4 g/dL (3.4-5.0) Albumin/Globulin Ratio 0.7 (1.0-1.7) Triglycerides Level 104 mg/dL (0-150) Cholesterol Level 187 mg/dL (0-200) LDL Cholesterol, Calculated 103 mg/dL (0-100) VLDL Cholesterol, Calculated 21 mg/dL (0-40) Non-HDL Cholesterol Calculated 124 mg/dL (0-129) HDL Cholesterol 63 mg/dL (40-60) Cholesterol/HDL Ratio 3.0 Thyroid Stimulating Hormone (TSH) 0.844 uIU/mL (0.358-3.74) Assessment/Plan Assessment/Plan IMP DYSPNEA ACUTE ON CHRONIC CHF HTN EMERGENCY HYPERKALEMIA NON COMPLIANCE ERSD CHEST PAIN AND HX OF CAD PLAN CARDIOLOGY EVAL AND TX HD TODAY UF TO DW RESUME HOME MEDS ENC COMPLIANCE MILES NESS MD May 13, 2019 15:14
[2019-05-13 19:44] VITALS: BP 141/68
--- NOTE | 2019-05-13 19:51 | PDOC2 ---
PALLIATIVE CARE Palliative Care Note Palliative Care Consult requested by Dr. Douglass to address goals of care. Medical Assessment per medical record; ASSESSMENT: 1. Acute on chronic diastolic congestive heart failure. 2. Hypertensive emergency. 3. Hyperkalemia. 4. End-stage renal disease, on dialysis. 5. Noncompliance. 6. Chest pain. 7. Coronary artery disease. Patient refused to have conversation at this time. Code Status; Full Code. Requested to have family involved in conversation; patient did not respond VIRGINIA WOODRUFF May 13, 2019 19:51
[2019-05-13] MEDS: DONEPEZIL HCL 5 MG TABLET. PO SCH (22:46)
[2019-05-13] MEDS: ATORVASTATIN CALCIUM 40 MG TABLET. PO SCH (22:47)
[2019-05-13 23:48] VITALS: BP 154/84
[2019-05-14 03:15] VITALS: BP 167/73
[2019-05-14] MEDS: DOXAZOSIN MESYLATE 4 MG TABLET. PO SCH (08:14)
[2019-05-14] MEDS: FOLIC/VIT B COMP W-C (RENAL) TABLET. PO SCH (08:15)
[2019-05-14] MEDS: cloNIDine HCL 0.2 MG TABLET PO SCH ×2 (08:15→21:16)
[2019-05-14] MEDS: ASPIRIN ENTERIC COATED 81 MG TABLET.DR. PO SCH (08:15)
[2019-05-14] MEDS: FUROSEMIDE 40 MG TABLET. PO SCH (08:15)
[2019-05-14] MEDS: amLODIPine BESYLATE 10 MG TABLET PO SCH (08:16)
--- NOTE | 2019-05-14 08:35 | CARD ---
MR#: [id number] Date of Study: 05/13/2019 Ordering Physician: XIOMARA GARRIDO, Referring Physician: XIOMARA GARRIDO, Tech: Alice Kincaid APPROVED REPORT EXAM: Two-dimensional and M-mode echocardiogram with Doppler and color Doppler. Other Information Quality : AverageHR: 85bpm INDICATION Dyspnea Chest Pain RISK FACTORS Hypertension 2D DIMENSIONS RVDd2.8 (2.9-3.5cm)Left Atrium(2D)3.9 (1.6-4.0cm) IVSd1.6 (0.7-1.1cm)Aortic Root(2D)3.4 (2.0-3.7cm) LVDd4.7 (3.9-5.9cm)LVOT Diameter2.0 (1.8-2.4cm) PWd1.6 (0.7-1.1cm)LVDs2.7 (2.5-4.0cm) FS (%) 41.5 %SV72.6 ml LVEF(%)72.5 (>50%) Aortic Valve AoV Peak Hieu.274.6cm/sAoV VTI44.1cm AO Peak GR.30.2mmHgLVOT VTI 26.33cm AO Mean GR.18mmHgAI P 1/2 [id number] Mitral Valve MV E Ebnjaqpn208.3cm/sMV DECEL [id number] MV A Dorxwdku150.0cm/sE/A Ratio0.8 TDI Lateral E' P. V5.21cm/sMedial E' P. V3.54cm/s E/Lateral E'20.8E/Medial E'30.6 Tricuspid Valve TR P. Fqigtksw140vd/sRAP FYAYOEUU4nqWz TR Peak Gr.25qoTjDXEH54tsPx Pulmonary Vein S1 Xwsbmulc33.5cm/sS2 Kybyyied71.87cm/s D2 Ixknbinu61.9cm/sPVa jyftrnvo15pncy LEFT VENTRICLE The left ventricle is normal size. There is moderate concentric left ventricular hypertrophy. The lef t ventricular systolic function is normal. The Ejection Fraction is 60-65%. There is normal LV segmen verito wall motion. Transmitral Doppler flow pattern is Grade I-abnormal relaxation pattern. RIGHT VENTRICLE The right ventricle is normal size. There is normal right ventricular wall thickness. The right ventr icular systolic function is normal. ATRIA The left atrium is mildly dilated. The right atrium size is normal. The interatrial septum is intact with no evidence for an atrial septal defect or patent foramen ovale as noted on 2-D or Doppler imagi ng. AORTIC VALVE The aortic valve is mildly to moderately thickened. Doppler and Color Flow revealed mild to moderate aortic regurgitation. Mild aortic valvular stenosis. Maximum pressure gradient of 30 mmHg and mean pr essure gradient of 18 mmHg. MITRAL VALVE The mitral valve is normal in structure and function. There is no evidence of mitral valve prolapse. There is no mitral valve stenosis. Doppler and Color Flow revealed no mitral valve regurgitation note d. TRICUSPID VALVE The tricuspid valve is normal in structure and function. Doppler and Color Flow revealed trace tricus pid regurgitation with an estimated PAP 34 mmHg. There is no tricuspid valve stenosis. PULMONIC VALVE The pulmonic valve is not well visualized. Doppler and Color Flow revealed no pulmonic valvular regur gitation. GREAT VESSELS The aortic root is normal in size. The IVC is normal in size and collapses >50% with inspiration. PERICARDIAL EFFUSION There is no evidence of significant pericardial effusion. Critical Notification Critical Value: No <Conclusion> The left ventricular systolic function is normal. The Ejection Fraction is 60-65%. There is normal LV segmental wall motion. Transmitral Doppler flow pattern is Grade I-abnormal relaxation pattern. Mild aortic valvular stenosis. Mild to moderate aortic regurgitation. Trace tricuspid regurgitation with an estimated PAP 34 mmHg. There is no evidence of significant pericardial effusion. Signed by : Lowell Orlando, Electronically Approved : 05/14/2019 08:34:59
[2019-05-14] MEDS: NON FORMULARY ITEM (Sucroferric Oxyhydroxide (Velphoro) 500 MG) PO SCH ×3 (09:00→21:00)
[2019-05-14 11:02] VITALS: BP 129/66
--- NOTE | 2019-05-14 11:48 | PDOC ---
SUBJECTIVE ROS Pt stated to nursing this am that she wahts to quit Dialysis She is refusing Hospice discussion Later she changed her mind and will continue Dialysis OBJECTIVE Vital Signs Vital Signs Date Time Temp Pulse Resp B/P (MAP) Pulse Ox O2 Delivery O2 Flow Rate FiO2 05/14/19 11:02 98.2 66 16 129/66 (87) 97 Room Air 98.2 I & 0 Intake and Output 05/14/19 06:59 Intake Total 300 ml Balance 300 ml Intake Oral 300 ml # Voids 2 PHYSICAL EXAM Physical Exam General: Alert, Oriented X3, Cooperative, No acute distress HEENT: Atraumatic, Mucous membr. moist/pink, Lungs: Clear to auscultation, diminished bases Heart: Regular rate, Normal S1, Normal S2 Abdomen: Soft, No tenderness Extremities: No bilateral LE edema ) Skin: No significant lesion Neuro: Normal speech, Sensation intact DIAGNOSIS/ASSESSMENT Assessment & Plan ESRD - On HD TTS HD today as ordered, [place] DYSPNEA- Stable Hyper K at presentation- Dialyzed Yesterday Acute on chr CHF HTN NON COMPLIANCE COMMENT/RELEVANT DATA Meds Current Medications Medications (Trade) Dose Ordered Sig/Maria Antonia Start Time Stop Time Status Last Admin Dose Admin Acetaminophen (Tylenol) 500 mg 1X PRN PRN 05/13/19 09:30 05/14/19 09:29 DC Albumin Human 200 ml @ 200 mls/hr 1X PRN PRN 05/13/19 09:30 05/13/19 15:29 DC Alprazolam (Xanax) 0.25 mg PRN BID PRN 05/13/19 02:00 Amlodipine Besylate (Norvasc) 10 mg DAILY 05/13/19 09:00 05/14/19 08:16 10 MG Aspirin (Ecotrin) 81 mg DAILYWBKFT 05/14/19 08:00 05/14/19 08:15 81 MG Atorvastatin Calcium (Lipitor) 40 mg QHS 05/13/19 21:00 05/13/19 22:47 40 MG Ceftriaxone Sodium (Rocephin) 1 gm 1X ONCE 05/12/19 23:30 05/12/19 23:31 DC 05/12/19 23:34 1 GM Clonidine HCl (Catapres) 0.2 mg 1X ONCE 05/13/19 02:30 05/13/19 02:31 DC 05/13/19 02:29 0.2 MG Diphenhydramine HCl (Benadryl) 25 mg 1X PRN PRN 05/13/19 09:30 05/14/19 09:29 DC Donepezil HCl (Aricept) 5 mg HS 05/13/19 21:00 05/13/19 22:46 5 MG Doxazosin Mesylate (Cardura) 4 mg DAILY 05/13/19 09:00 05/14/19 08:14 4 MG Fentanyl Citrate (Fentanyl 2ml Vial) 50 mcg PRN Q1HR PRN 05/12/19 23:45 05/13/19 23:44 DC 05/13/19 22:51 50 MCG Furosemide (Lasix) 40 mg DAILY 05/13/19 09:00 05/14/19 08:15 40 MG Hydralazine HCl (Apresoline Inj) 10 mg PRN Q3HRS PRN 05/13/19 02:00 Hydralazine HCl (Apresoline) 100 mg 1X ONCE 05/13/19 02:30 05/13/19 02:31 DC 05/13/19 02:30 100 MG Info (PHARMACY MONITORING -- do not chart) 1 each PRN DAILY PRN 05/13/19 09:30 Non-Formulary Medication (Sucroferric Oxyhydroxide (Velphoro)) 500 mg TID 05/13/19 09:00 UNV Ondansetron HCl (Zofran) 4 mg PRN Q8HRS PRN 05/12/19 23:45 05/13/19 23:44 DC 05/13/19 00:29 4 MG Sodium Chloride 1,000 ml @ 400 mls/hr Q2H30M PRN 05/13/19 09:28 05/13/19 21:27 DC Vitamin B Complex/ Vitamin C (Jolie-Rossana) 1 tab DAILY 05/13/19 09:00 05/14/19 08:15 1 TAB Results All relevant outside records, renal labs, imaging studies, telemetry/EKG's were reviewed. EDDIE BEAN MD May 14, 2019 11:48
--- NOTE | 2019-05-14 12:01 | PDOC2 ---
PALLIATIVE CARE Palliative Care Note Palliative Care Met with patient. Alert and oriented x 3. Reviewed her medical condition. 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 The one " area she did not like to work in was dialysis." Hates to get stuck with needles. Discussed need for AD. She would like her daughter Sisi to be her POA. [phone]. She would like me to call her and update her. She requested I get this number from her sister Sharlene. Discussed Code Status; She requests DNR/DNI REad and signed the [facility] DNR/DNI form Discussed need for dialysis. She states she would like to take dialysis today even though she had told the staff earlier today she did not want it. Updated Dameon PALMER and spoke with dialysis staff . Dialysis Spoke with Sisi. She is aware of her medical condition. She stated she was on an antidepressant--Mirtazapine 30mg. Dameon PALMER will call Dr. Jones . Will continue to follow. Patient would benefit from HH when discharged. VIRGINIA WOODRUFF May 14, 2019 12:01
[2019-05-14] MEDS ORDERED: IV NORMAL SALINE 1000ML BAG 1,000 ML IV PRN ×2 (12:39)
[2019-05-14] MEDS ORDERED: DIALYSIS PATIENT. MC PRN ×2 (12:45)
[2019-05-14] MEDS ORDERED: ALBUMIN HUMAN 25% 200 ML IV PRN (12:45)
[2019-05-14] MEDS: HYDROcodone/APAP 10/325 1 TAB TABLET PO PRN ×2 (14:37→21:18)
--- NOTE | 2019-05-14 16:37 | PDOC ---
PROGRESS NOTES Subjective Subjective Patient much more alert today. Palliative care discussed care goals with patient. Patient wishes daughter to be deep UA. Patient agrees to DO NOT RESUSCITATE. Patient wants to continue dialysis at this time and not proceed with hospice care at this time. Objective Objective Vital Signs Date Time Temp Pulse Resp B/P (MAP) Pulse Ox O2 Delivery O2 Flow Rate FiO2 05/14/19 15:37 Room Air 05/14/19 11:02 98.2 66 16 129/66 (87) 97 98.2 Intake and Output 05/14/19 07:00 Intake Total 300 ml Balance 300 ml Intake Oral 300 ml # Voids 2 Physical Exam Abdomen: Normal bowel sounds Heart: Regular rate General: Alert Lungs: Clear to auscultation Assessment Assessment Problems Medical Problems: (1) Acute on chronic diastolic (congestive) heart failure Status: Acute (2) Hyperkalemia Status: Acute 1. Acute on chronic diastolic congestive heart failure. 2. Hypertensive emergency. 3. Hyperkalemia. 4. End-stage renal disease, on dialysis. 5. Noncompliance. 6. Chest pain. 7. Coronary artery disease. Plan Plan of Care Continue PT and OT modalities. Dialysis done yesterday and planned for this afternoon. Discharge in a.m. if stable per PT and OT. Comment Review of Relevant I have reviewed the following items ross (where applicable) has been applied. Labs Laboratory Tests Test 05/12/19 22:10 05/12/19 22:35 05/13/19 02:58 05/14/19 16:01 Urine Collection Type Unknown Urine Color Yellow Urine Clarity Cloudy Urine pH 7.5 Urine Specific [place] 1.010 Urine Protein 100 mg/dL (NEG-TRACE) Urine Glucose (UA) 100 mg/dL (NEG) Urine Ketones (Stick) Negative mg/dL (NEG) Urine Blood Small (NEG) Urine Nitrite Negative (NEG) Urine Bilirubin Negative (NEG) Urine Urobilinogen Dipstick 0.2 mg/dL (0.2 mg/dL) Urine Leukocyte Esterase Small (NEG) Urine RBC 3-5 /HPF (0-2) Urine WBC 11-20 /HPF (0-4) Urine Squamous Epithelial Cells Many /LPF Urine Bacteria Many /HPF (0-FEW) Urine Mucus Mod /LPF White Blood Count 7.0 x10^3/uL (4.0-11.0) Red Blood Count 3.64 x10^6/uL (3.50-5.40) Hemoglobin 11.0 g/dL (12.0-15.5) Hematocrit 32.6 % (36.0-47.0) Mean Corpuscular Volume 90 fL (79-100) Mean Corpuscular Hemoglobin 30 pg (25-35) Mean Corpuscular Hemoglobin Concent 34 g/dL (31-37) Red Cell Distribution Width 17.1 % (11.5-14.5) Platelet Count 240 x10^3/uL (140-400) Neutrophils (%) (Auto) 57 % (31-73) Lymphocytes (%) (Auto) 35 % (24-48) Monocytes (%) (Auto) 5 % (0-9) Eosinophils (%) (Auto) 3 % (0-3) Basophils (%) (Auto) 0 % (0-3) Neutrophils # (Auto) 4.0 x10^3/uL (1.8-7.7) Lymphocytes # (Auto) 2.4 x10^3/uL (1.0-4.8) Monocytes # (Auto) 0.4 x10^3/uL (0.0-1.1) Eosinophils # (Auto) 0.2 x10^3/uL (0.0-0.7) Basophils # (Auto) 0.0 x10^3/uL (0.0-0.2) Sodium Level 142 mmol/L (136-145) Potassium Level 5.7 mmol/L (3.5-5.1) Chloride Level 102 mmol/L (98-107) Carbon Dioxide Level 22 mmol/L (21-32) Anion Gap 18 (6-14) Blood Urea Nitrogen 88 mg/dL (7-20) Creatinine 11.7 mg/dL (0.6-1.0) Estimated GFR (Cockcroft-Gault) 4.0 BUN/Creatinine Ratio 8 (6-20) Glucose Level 96 mg/dL (70-99) Calcium Level 9.6 mg/dL (8.5-10.1) Total Bilirubin 0.3 mg/dL (0.2-1.0) Aspartate Amino Transf (AST/SGOT) 9 U/L (15-37) Alanine Aminotransferase (ALT/SGPT) 12 U/L (14-59) Alkaline Phosphatase 153 U/L (46-116) Troponin I Quantitative 0.034 ng/mL (0.000-0.055) 0.028 ng/mL (0.000-0.055) Total Protein 8.0 g/dL (6.4-8.2) Albumin 3.4 g/dL (3.4-5.0) Albumin/Globulin Ratio 0.7 (1.0-1.7) Triglycerides Level 104 mg/dL (0-150) Cholesterol Level 187 mg/dL (0-200) LDL Cholesterol, Calculated 103 mg/dL (0-100) VLDL Cholesterol, Calculated 21 mg/dL (0-40) Non-HDL Cholesterol Calculated 124 mg/dL (0-129) HDL Cholesterol 63 mg/dL (40-60) Cholesterol/HDL Ratio 3.0 Thyroid Stimulating Hormone (TSH) 0.844 uIU/mL (0.358-3.74) Glucose (Fingerstick) 95 mg/dL (70-99) Laboratory Tests Test 05/14/19 16:01 Glucose (Fingerstick) 95 mg/dL (70-99) Medications Current Medications Ceftriaxone Sodium (Rocephin) 1 gm 1X ONCE IVP Last administered on 05/12/19at 23:34; Start 05/12/19 at 23:30; Stop 05/12/19 at 23:31; Status DC Ondansetron HCl (Zofran) 4 mg PRN Q8HRS PRN IV NAUSEA/VOMITING Last administered on 05/13/19at 00:29; Start 05/12/19 at 23:45; Stop 05/13/19 at 23:44; Status DC Fentanyl Citrate (Fentanyl 2ml Vial) 50 mcg PRN Q1HR PRN IV PAIN Last administered on 05/13/19at 22:51; Start 05/12/19 at 23:45; Stop 05/13/19 at 23:44; Status DC Hydralazine HCl (Apresoline Inj) 25 mg 1X ONCE IVP Last administered on 05/13/19at 02:24; Start 05/13/19 at 02:30; Stop 05/13/19 at 02:31; Status DC Hydralazine HCl (Apresoline Inj) 10 mg PRN Q3HRS PRN IVP ELEVATED BP, SEE COMMENTS; Start 05/13/19 at 02:00 Acetaminophen (Tylenol) 1,000 mg PRN Q6HRS PRN PO MILD pain; Start 05/13/19 at 02:00 Alprazolam (Xanax) 0.25 mg PRN BID PRN PO ANXIETY / AGITATION; Start 05/13/19 at 02:00 Amlodipine Besylate (Norvasc) 10 mg DAILY PO Last administered on 05/14/19 08:16; Start 05/13/19 at 09:00 Atorvastatin Calcium (Lipitor) 40 mg QHS PO Last administered on 05/13/19 22:47; Start 05/13/19 at 21:00 Clonidine HCl (Catapres) 0.2 mg BID PO Last administered on 05/14/19 08:15; Start 05/13/19 at 09:00 Donepezil HCl (Aricept) 5 mg HS PO Last administered on 05/13/19 22:46; Start 05/13/19 at 21:00 Doxazosin Mesylate (Cardura) 4 mg DAILY PO Last administered on 05/14/19 08:14; Start 05/13/19 at 09:00 Vitamin B Complex/ Vitamin C (Jolie-Rossana) 1 tab DAILY PO Last administered on 05/14/19 08:15; Start 05/13/19 at 09:00 Furosemide (Lasix) 40 mg DAILY PO Last administered on 05/14/19 08:15; Start 05/13/19 at 09:00 Hydralazine HCl (Apresoline) 100 mg BID PO Last administered on 05/14/19 08:16; Start 05/13/19 at 09:00 Non-Formulary Medication (Sucroferric Oxyhydroxide (Velphoro)) 500 mg TID PO ; Start 05/13/19 at 09:00; Status UNV Hydralazine HCl (Apresoline) 100 mg 1X ONCE PO Last administered on 05/13/19 02:30; Start 05/13/19 at 02:30; Stop 05/13/19 at 02:31; Status DC Clonidine HCl (Catapres) 0.2 mg 1X ONCE PO Last administered on 05/13/19 02:29; Start 05/13/19 at 02:30; Stop 05/13/19 at 02:31; Status DC Sodium Chloride 1,000 ml @ 1,000 mls/hr Q1H PRN IV hypotension; Start 05/13/19 at 09:28; Stop 05/13/19 at 15:27; Status DC Albumin Human 200 ml @ 200 mls/hr 1X PRN PRN IV Hypotension; Start 05/13/19 at 09:30; Stop 05/13/19 at 15:29; Status DC Acetaminophen (Tylenol) 500 mg 1X PRN PRN PO MILD PAIN / TEMP; Start 05/13/19 at 09:30; Stop 05/14/19 at 09:29; Status DC Diphenhydramine HCl (Benadryl) 25 mg 1X PRN PRN IV ITCHING; Start 05/13/19 at 09:30; Stop 05/14/19 at 09:29; Status DC Diphenhydramine HCl (Benadryl) 25 mg 1X PRN PRN IV ITCHING; Start 05/13/19 at 09:30; Stop 05/14/19 at 09:29; Status DC Sodium Chloride 1,000 ml @ 400 mls/hr Q2H30M PRN IV PATENCY; Start 05/13/19 at 09:28; Stop 05/13/19 at 21:27; Status DC Info (PHARMACY MONITORING -- do not chart) 1 each PRN DAILY PRN MC SEE COMMENTS; Start 05/13/19 at 09:30; Stop 05/13/19 at 12:08; Status DC Info (PHARMACY MONITORING -- do not chart) 1 each PRN DAILY PRN MC SEE COMMENTS; Start 05/13/19 at 09:30 Aspirin (Ecotrin) 81 mg DAILYWBKFT PO Last administered on 05/14/19at 08:15; Start 05/14/19 at 08:00 Acetaminophen/ Hydrocodone Bitart (Lortab 10/325) 1 tab PRN Q6HRS PRN PO MODERATE PAIN Last administered on 05/14/19at 14:37; Start 05/14/19 at 12:45 Sodium Chloride 1,000 ml @ 1,000 mls/hr Q1H PRN IV hypotension; Start 05/14/19 at 12:39; Stop 05/14/19 at 18:38 Albumin Human 200 ml @ 200 mls/hr 1X PRN PRN IV Hypotension; Start 05/14/19 at 12:45; Stop 05/14/19 at 18:44 Sodium Chloride 1,000 ml @ 400 mls/hr Q2H30M PRN IV PATENCY; Start 05/14/19 at 12:39; Stop 05/15/19 at 00:38 Info (PHARMACY MONITORING -- do not chart) 1 each PRN DAILY PRN MC SEE COMMENTS; Start 05/14/19 at 12:45; Status UNV Info (PHARMACY MONITORING -- do not chart) 1 each PRN DAILY PRN MC SEE COMMENTS; Start 05/14/19 at 12:45 Active Scripts Active Hydralazine Hcl 100 Mg Tablet 1 Tab PO BID Alprazolam 0.25 Mg Tablet 0.25 Mg PO PRN BID PRN 30 Days Jolie-Rossana Tablet (Folic Acid/Vitamin B Comp W-C) 0.8 Mg Tablet 1 Tab PO DAILY 30 Days Mapap (Acetaminophen) 500 Mg Tablet 1,000 Mg PO PRN Q6HRS PRN 30 Days [place] 10-325 Tablet (Acetaminophen/Hydrocodone Bitart) 1 Each Tablet 1 Tab PO PRN Q6HRS PRN 30 Days Atorvastatin Calcium 40 Mg Tablet 40 Mg PO QHS Aricept (Donepezil Hcl) 5 Mg Tablet 5 Mg PO HS 30 Days Reported Clonidine Hcl 0.2 Mg Tablet 1 Tab PO BID Doxazosin Mesylate 4 Mg Tablet 1 Tab PO DAILY Amlodipine Besylate 10 Mg Tablet 10 Mg PO DAILY Furosemide 40 Mg Tablet 1 Tab PO DAILY Velphoro (Sucroferric Oxyhydroxide) 500 Mg Tab.chew 500 Mg PO TID Vitals/I & O Vital Sign - Last 24 Hours 05/13/19 05/13/19 05/13/19 05/13/19 19:44 19:45 22:46 22:51 Temp 98.2 98.2 Pulse 88 88 Resp 18 B/P (MAP) 141/68 (92) 141/68 Pulse Ox 100 O2 Delivery Room Air Room Air Room Air 05/13/19 05/13/19 05/14/19 05/14/19 22:51 23:48 03:15 08:14 Temp 98.2 98.8 98.2 98.8 Pulse 88 91 71 71 Resp 18 18 B/P (MAP) 141/68 154/84 (107) 167/73 (104) 167/73 Pulse Ox 99 99 O2 Delivery Room Air Room Air 05/14/19 05/14/19 05/14/19 05/14/19 08:15 08:16 08:16 11:02 Temp 98.2 98.2 Pulse 71 71 71 66 Resp 16 B/P (MAP) 167/73 167/73 167/73 129/66 (87) Pulse Ox 97 O2 Delivery Room Air 05/14/19 05/14/19 14:37 15:37 O2 Delivery Room Air Room Air Intake and Output 05/13/19 05/13/19 05/14/19 15:00 23:00 07:00 Intake Total 0 ml 100 ml 200 ml Balance 0 ml 100 ml 200 ml IVETH DAVIS MD May 14, 2019 16:37
[2019-05-14 19:16] VITALS: BP 134/84
[2019-05-14] MEDS ORDERED: MIRTAZAPINE 15 MG TABLET PO SCH (21:00)
[2019-05-14] MEDS: ATORVASTATIN CALCIUM 40 MG TABLET. PO SCH (21:15)
[2019-05-14] MEDS: DONEPEZIL HCL 5 MG TABLET. PO SCH (21:15)
[2019-05-14 23:20] VITALS: BP 164/106
[2019-05-15 03:25] VITALS: BP 139/76
[2019-05-15 07:30] VITALS: BP 142/80
[2019-05-15] MEDS: NON FORMULARY ITEM (Sucroferric Oxyhydroxide (Velphoro) 500 MG) PO SCH ×2 (09:00→14:00)
[2019-05-15] MEDS: FUROSEMIDE 40 MG TABLET. PO SCH (11:09)
[2019-05-15] MEDS: DOXAZOSIN MESYLATE 4 MG TABLET. PO SCH (11:09)
[2019-05-15] MEDS: ASPIRIN ENTERIC COATED 81 MG TABLET.DR. PO SCH (11:09)
[2019-05-15] MEDS: FOLIC/VIT B COMP W-C (RENAL) TABLET. PO SCH (11:09)
[2019-05-15] MEDS: amLODIPine BESYLATE 10 MG TABLET PO SCH (11:10)
[2019-05-15] MEDS: cloNIDine HCL 0.2 MG TABLET PO SCH (11:10)
[2019-05-15 11:20] VITALS: BP 141/86
[2019-05-15] MEDS: HYDROcodone/APAP 10/325 1 TAB TABLET PO PRN (11:25)
[2019-05-15] MEDS ORDERED: MIRT15TA3 PO (12:23)
[2019-05-15] MEDS ORDERED: ASPI-612 PO (12:23)
--- NOTE | 2019-05-15 12:26 | SNU/HH DC ---
DISCHARGE WITH HOME HEALTH DISCHARGE INFORMATION: Discharge Date: May 15, 2019 Final Diagnosis: Problems Medical Problems: (1) Acute on chronic diastolic (congestive) heart failure Status: Acute (2) Hyperkalemia Status: Acute Condition on Discharge: Stable CODE STATUS: Code Status: DNR/DNI HOME HEALTH: Face to Face: I certify this patient is under my care and that I, or a nurse practitioner or physician's assistant professor of communication working with me, had a face to face encounter that meets the physician face to face encounter requirements with this patient on []. RN For Eval/Treatment: Yes Physical Therapy For: Evalulation/Treatment Occupational Therapy For: Evaluation/Treatment Home Health Aide For: Self-care ARBOREAL SCIENTIST For: Community Resources Pt Meets Homebound Status: Poor coordination w/ amb. POST DISCHARGE ORDERS: Activity Instructions for Disc: Activity as tolerated Weight Bearing Status after Di: As tolerated Bathing Instructions: Shower-keep dressing dry, No Tub Bath until see DIET AFTER DISCHARGE: Renal Wound/Incision Care: Keep wound/cast CDI, No wound care needed CHECKS AFTER DISCHARGE: Checks after discharge: Check blood press - daily TREATMENT/EQUIPMENT ORDERS: Adaptive Equipment Issued: None CERTIFICATION STATEMENT: Certification Statement: Certification Statement: Based on the above finding, I certify that this patient is confined to the home and needs intermittent fpc care, physical therapy and/or speech therapy, or continues to need occupational therapy.~ This patient is under my care, and I have initiated the establishment of the plan of care.~ This patient will be followed by myself or a community physician who will periodically review the plan of care. Home Meds Active Scripts Mirtazapine (MIRTAZAPINE) 15 Mg Tablet, 30 MG PO QHS for depression for 30 Days, #60 TAB Prov:IVETH DAVIS MD 05/15/19 Aspirin (ASPIRIN EC) 81 Mg Tablet.dr, 81 MG PO DAILYWBKFT for prophalaxis for 30 Days, #30 TAB.SR Prov:IVETH DAVIS MD 05/15/19 Hydralazine Hcl (HYDRALAZINE HCL) 100 Mg Tablet, 1 TAB PO BID for BP, #60 TAB 5 Refills Prov:Tonya LAMAR MD 04/16/19 Alprazolam (ALPRAZOLAM) 0.25 Mg Tablet, 0.25 MG PO PRN BID PRN for ANXIETY / AGITATION for 30 Days, #60 TAB Prov:Tonya LAMAR MD 07/25/18 Folic Acid/Vitamin B Comp W-C (CARROLL-MARYANNE TABLET) 0.8 Mg Tablet, 1 TAB PO DAILY for kidneys for 30 Days, #30 TAB 11 Refills Prov:Tonya LAMAR MD 07/23/18 Acetaminophen (MAPAP) 500 Mg Tablet, 1000 MG PO PRN Q6HRS PRN for MILD pain for 30 Days, TAB Prov:MECHE ROGER MD 01/09/18 Hydrocodone/Apap 10-325 (NORCO 10-325 TABLET) 1 Each Tablet, 1 TAB PO PRN Q6HRS PRN for PAIN for 30 Days, TAB 0 Refills Prov:MECHE ROGER MD 01/06/18 Atorvastatin Calcium (ATORVASTATIN CALCIUM) 40 Mg Tablet, 40 MG PO QHS, #30 Prov:Tonya LAMAR MD 07/20/15 Donepezil Hcl (ARICEPT) 5 Mg Tablet, 5 MG PO HS for 30 Days Prov:PIA PELAYO MD 05/20/15 Reported Medications Clonidine Hcl (CLONIDINE HCL) 0.2 Mg Tablet, 1 TAB PO BID for bp, #60 TAB 5 Refills 04/14/19 Doxazosin Mesylate (DOXAZOSIN MESYLATE) 4 Mg Tablet, 1 TAB PO DAILY for *, #30 TAB 5 Refills 04/14/19 Amlodipine Besylate (AMLODIPINE BESYLATE) 10 Mg Tablet, 10 MG PO DAILY for bp, TAB 04/14/19 Furosemide (FUROSEMIDE) 40 Mg Tablet, 1 TAB PO DAILY for diuretic, #30 TAB 5 Refills 04/14/19 Sucroferric Oxyhydroxide (VELPHORO) 500 Mg Tab.chew, 500 MG PO TID for replacement, TAB.CHEW 04/14/19 IVETH DAVIS MD May 15, 2019 12:26
--- NOTE | 2019-05-15 13:05 | PDOC ---
SUBJECTIVE ROS Stable, eating lunch, no complaints OBJECTIVE Vital Signs Vital Signs Date Time Temp Pulse Resp B/P (MAP) Pulse Ox O2 Delivery O2 Flow Rate FiO2 05/15/19 12:47 100 Room Air 05/15/19 11:20 99.0 91 18 141/86 (104) 99.0 I & 0 Intake and Output 05/15/19 07:00 Intake Total 1740 ml Balance 1740 ml Intake Oral 1740 ml # Voids 2 PHYSICAL EXAM Physical Exam General: Alert, Oriented X3, Cooperative, No acute distress HEENT: Atraumatic, Mucous membr. moist/pink, Lungs: Clear to auscultation, diminished bases Heart: Regular rate, Normal S1, Normal S2 Abdomen: Soft, No tenderness Extremities: No bilateral LE edema ) Skin: No significant lesion Neuro: Normal speech, Sensation intact DIAGNOSIS/ASSESSMENT Assessment & Plan ESRD - On HD TTS No indication for HD today DYSPNEA- Stable Hyper K at presentation- Acute on chr CHF HTN NON COMPLIANCE COMMENT/RELEVANT DATA Meds Current Medications Medications (Trade) Dose Ordered Sig/Maria Antonia Start Time Stop Time Status Last Admin Dose Admin Acetaminophen (Tylenol) 500 mg 1X PRN PRN 05/13/19 09:30 05/14/19 09:29 DC Acetaminophen/ Hydrocodone Bitart (Lortab 10) 1 tab PRN Q6HRS PRN 05/14/19 12:45 05/15/19 11:25 1 TAB Albumin Human 200 ml @ 200 mls/hr 1X PRN PRN 05/14/19 12:45 05/14/19 18:44 DC Alprazolam (Xanax) 0.25 mg PRN BID PRN 05/13/19 02:00 Amlodipine Besylate (Norvasc) 10 mg DAILY 05/13/19 09:00 05/15/19 11:10 10 MG Aspirin (Ecotrin) 81 mg DAILYWBKFT 05/14/19 08:00 05/15/19 11:09 81 MG Atorvastatin Calcium (Lipitor) 40 mg QHS 05/13/19 21:00 05/14/19 21:15 40 MG Ceftriaxone Sodium (Rocephin) 1 gm 1X ONCE 05/12/19 23:30 05/12/19 23:31 DC 05/12/19 23:34 1 GM Clonidine HCl (Catapres) 0.2 mg 1X ONCE 05/13/19 02:30 05/13/19 02:31 DC 05/13/19 02:29 0.2 MG Diphenhydramine HCl (Benadryl) 25 mg 1X PRN PRN 05/13/19 09:30 05/14/19 09:29 DC Donepezil HCl (Aricept) 5 mg HS 05/13/19 21:00 05/14/19 21:15 5 MG Doxazosin Mesylate (Cardura) 4 mg DAILY 05/13/19 09:00 05/15/19 11:09 4 MG Fentanyl Citrate (Fentanyl 2ml Vial) 50 mcg PRN Q1HR PRN 05/12/19 23:45 05/13/19 23:44 DC 05/13/19 22:51 50 MCG Furosemide (Lasix) 40 mg DAILY 05/13/19 09:00 05/15/19 11:09 40 MG Hydralazine HCl (Apresoline Inj) 10 mg PRN Q3HRS PRN 05/13/19 02:00 Hydralazine HCl (Apresoline) 100 mg 1X ONCE 05/13/19 02:30 05/13/19 02:31 DC 05/13/19 02:30 100 MG Info (PHARMACY MONITORING -- do not chart) 1 each PRN DAILY PRN 05/14/19 12:45 Mirtazapine (Remeron) 30 mg QHS 05/14/19 21:00 05/14/19 21:15 30 MG Non-Formulary Medication (Sucroferric Oxyhydroxide (Velphoro)) 500 mg TID 05/13/19 09:00 UNV Ondansetron HCl (Zofran) 4 mg PRN Q8HRS PRN 05/12/19 23:45 05/13/19 23:44 DC 05/13/19 00:29 4 MG Sodium Chloride 1,000 ml @ 400 mls/hr Q2H30M PRN 05/14/19 12:39 05/15/19 00:38 DC Vitamin B Complex/ Vitamin C (Jolie-Rossana) 1 tab DAILY 05/13/19 09:00 05/15/19 11:09 1 TAB Lab Laboratory Tests Test 05/14/19 16:01 Glucose (Fingerstick) 95 mg/dL (70-99) Results All relevant outside records, renal labs, imaging studies, telemetry/EKG's were reviewed. EDDIE BEAN MD May 15, 2019 13:04
[2019-05-15 14:44] VITALS: BP 117/64
--- NOTE | 2019-05-15 15:52 | DS ---
DATE OF DISCHARGE: 05/15/2019 ADMIT DIAGNOSES: Chest pain and shortness of breath. DISMISSAL DIAGNOSES: 1. Acute on chronic diastolic congestive heart failure. 2. Hypertensive emergency. 3. End-stage renal disease, on dialysis. 4. Hyperkalemia. 5. Coronary artery disease. HISTORY OF PRESENT ILLNESS AND HOSPITAL COURSE: This patient is a 63-year-old female who suffers with bipolar disorder and end-stage renal disease. She has missed several dialysis and is not taking her medications routinely. She came to the Emergency Department with increased chest pain and shortness of breath, found to have ongoing congestive heart failure and hyperkalemia. She was admitted for Cardiology evaluation and Nephrology care and urgent dialysis. Initially the patient considered stopping dialysis and going to hospice care, but subsequently the patient agreed to further dialysis. The patient was debilitated and PT and OT recommended home health for PT and OT modalities. She was back to baseline after 2 dialysis treatments on consecutive days and was back on schedule for dialysis on Saturday on the day after this discharge. DISCHARGE MEDICATIONS: She was discharged on the following medications: Aspirin 81 mg daily, Remeron 30 mg each day at bedtime, Tylenol 1000 mg p.o. q 6 p.r.n., alprazolam 0.25 b.i.d. p.r.n., amlodipine 10 mg daily, atorvastatin 40 mg daily, clonidine 0.1 b.i.d., donepezil 5 mg daily, doxazosin 4 mg daily, folic acid in the form of Jolie-Rossana 1 tablet daily, Lasix 40 mg daily, hydralazine 100 mg b.i.d., hydrocodone 10 q 6 p.r.n., vitamin B and iron supplementation 500 mg t.i.d. She will follow up with dialysis in [address] Bolaños in 1 week. DISCHARGE DIAGNOSIS: Acute on chronic diastolic congestive heart failure, resolved with dialysis; hypertensive emergency; severe pulmonary hypertension; hyperkalemia, resolved; end-stage renal disease, on dialysis; history of coronary artery disease, COPD; remote history of cerebrovascular accident; memory deficit with dementia; IBS; bipolar disorder. IVETH DAVIS MD DR: SHABBIR/rubi JOB#: [id number] / [id number]
--- NOTE | 2019-05-15 16:40 | NUR ---
Pt escorted out via wheelchair with family to main entrance.
== END 2019-05-15 16:40 | disposition home health service (06) | DRG 291 ==
LOC: ER 20:59 → 6 SOUTH 23:11
PROVIDERS: ADMIT Family Medicine; ATTEND Family Medicine
PROC: 5A1D70Z Performance of Urinary Filtration, Intermittent, Less than 6 Hours Per Day (ICD-10-PCS; principal; 2019-05-12)
PROC: 5A1D70Z Performance of Urinary Filtration, Intermittent, Less than 6 Hours Per Day (ICD-10-PCS; 2019-05-13)
DX: I13.2 Hypertensive heart and chronic kidney disease with heart failure and with stage 5 chronic kidney disease, or end stage renal disease (principal); I50.33 Acute on chronic diastolic (congestive) heart failure; N18.6 End stage renal disease; I16.1 Hypertensive emergency; E03.9 Hypothyroidism, unspecified; E78.5 Hyperlipidemia, unspecified; E87.5 Hyperkalemia; F03.90 Unspecified dementia, unspecified severity, without behavioral disturbance, psychotic disturbance, mood disturbance, and anxiety; F17.210 Nicotine dependence, cigarettes, uncomplicated; F31.9 Bipolar disorder, unspecified; I25.10 Atherosclerotic heart disease of native coronary artery without angina pectoris; I25.2 Old myocardial infarction; J44.9 Chronic obstructive pulmonary disease, unspecified; K58.9 Irritable bowel syndrome, unspecified; Z66 Do not resuscitate; Z82.49 Family history of ischemic heart disease and other diseases of the circulatory system; Z86.73 Personal history of transient ischemic attack (TIA), and cerebral infarction without residual deficits; Z91.14 Patient's other noncompliance with medication regimen; Z91.15 Patient's noncompliance with renal dialysis; Z91.19 Patient's noncompliance with other medical treatment and regimen; Z95.1 Presence of aortocoronary bypass graft; Z95.5 Presence of coronary angioplasty implant and graft; Z99.2 Dependence on renal dialysis; E21.3 Hyperparathyroidism, unspecified; F41.9 Anxiety disorder, unspecified; M19.90 Unspecified osteoarthritis, unspecified site; Z88.8 Allergy status to other drugs, medicaments and biological substances
CPT/HCPCS: 36415; 71045; 80053; 80061; 81001; 82962; 84443; 84484; 85025; 87086; 93005; 93306; 96374; 96375; J0360; J0696; J2405; J3010; 97110; 97116; 97530; 97535; 99285-25; G0378

== ENCOUNTER 2019-06-09 07:32 | Emergency (ER) | payer OTHER, MEDICAID ==
[~2019-06-09] VITALS: Ht 162.6 cm; Wt 57.2 kg
[~2019-06-09 07:32] MED LIST changes: -ACET500T55 PO; +ACET500T56 PO; +ASPI-612 PO; +MIRT15TA3 PO
[2019-06-09] MEDS ORDERED: LABETALOL 20 MG/4 ML DISP.SYRIN. IVP ONE (07:45)
[2019-06-09] MEDS ORDERED: ACETAMINOPHEN 500 MG TABLET PO ONE (07:45)
--- NOTE | 2019-06-09 07:48 | PHYS DOC ---
Past Medical History Past Medical History: CVA, Hypertension, [place], Renal Failure, Stroke Additional Past Medical Histor: Chronic Kidney Disease Past Surgical History: Cholecystectomy, Other Additional Past Surgical Histo: cardiac stents, when stroke fluid had to be drained from brain(per fam), Smoking: Cigarettes Alcohol Use: None Drug Use: None Adult General Chief Complaint Chief Complaint: HYPERTENSION HPI HPI Patient is a 63-year-old female, with a past history of hypertension, and ESRD, on hemodialysis, Saturday and Saturday, whose last dialysis was Saturday. She went to her dialysis center today, and was told that her blood pressure was elevated. She had taken a 4:30 AM dose of her clonidine, 0.3 mg. When her blood pressure was elevated, she took another 0.3 mg at about 7 AM this morning. She complains of a generalized headache. She has not had any vision changes, numbness, weakness, chest pain or shortness of breath. She has not had any speech difficulties. She states that she has had similar headaches in the past when her blood pressure is elevated. She denies missing any doses of her regular blood pressure medication. There are no alleviating or exacerbating factors to her symptoms otherwise. Review of Systems Review of Systems Constitutional: Denies fever or chills [] Eyes: Denies change in visual acuity, redness, or eye pain [] HENT: Denies nasal congestion or sore throat [] Respiratory: Denies cough or shortness of breath [] Cardiovascular: The patient denies any shortness of breath, chest pain, palpitations, or orthopnea [] GI: Denies abdominal pain, nausea, vomiting, bloody stools or diarrhea [] : Denies dysuria or hematuria [] Musculoskeletal: Denies back pain or joint pain [] Integument: Denies rash or skin lesions [] Neurologic: Denies focal weakness or sensory changes [] Endocrine: Denies polyuria or polydipsia [] All other systems were reviewed and found to be within normal limits, except as documented in this note. Current Medications Current Medications Current Medications Medications (Trade) Dose Ordered Sig/Maria Antonia Start Time Stop Time Status Last Admin Dose Admin Acetaminophen (Tylenol) 1,000 mg 1X ONCE 06/09/19 07:45 06/09/19 07:50 DC 06/09/19 09:05 1,000 MG Labetalol HCl (Normodyne Iv Push) 20 mg 1X ONCE 06/09/19 07:45 06/09/19 07:50 DC 06/09/19 09:11 20 MG Allergies Allergies Allergies Coded Allergies Type Severity Reaction Last Updated Verified hydromorphone Allergy Severe itching, sob 07/18/18 Yes metoprolol Allergy Intermediate Itching 07/18/18 Yes morphine Allergy Intermediate itching, sob 07/18/18 Yes Physical Exam Physical Exam PHYSICAL EXAM: CONSTITUTIONAL: Well developed, well nourished HEAD: normocephalic, atraumatic EENT: PERRL, EOMI. Conjunctivae normal color, sclerae non-icteric; moist mucous membranes. NECK: Supple, non-tender; no meningismus. LUNGS: Lungs CTA, breathing even and unlabored. Normal air movement. HEART: Regular rate and rhythm, no murmur CHEST: No deformity; non-tender ABDOMEN: The abdomen is soft, and non-tender, no masses or bruits. EXTREM: Normal ROM; no deformity, no calf tenderness. Normal pulses palpable in all extremities. There is no pedal edema. There is an AV fistula in the right upper extremity. SKIN: No rash; no diaphoresis NEURO: Alert; normal speech and cognition; CN's grossly intact; strength grossly intact without focal deficit. BACK: No CVA TTP. Current Patient Data Vital Signs Vital Signs Date Time Temp Pulse Resp B/P (MAP) Pulse Ox O2 Delivery O2 Flow Rate FiO2 06/09/19 09:11 73 179/98 06/09/19 07:38 97.7 16 97 Room Air 97.7 Lab Values Laboratory Tests Test 06/09/19 08:20 White Blood Count 6.9 x10^3/uL (4.0-11.0) Red Blood Count 3.69 x10^6/uL (3.50-5.40) Hemoglobin 11.0 g/dL (12.0-15.5) L Hematocrit 32.9 % (36.0-47.0) L Mean Corpuscular Volume 89 fL (79-100) Mean Corpuscular Hemoglobin 30 pg (25-35) Mean Corpuscular Hemoglobin Concent 33 g/dL (31-37) Red Cell Distribution Width 16.9 % (11.5-14.5) H Platelet Count 251 x10^3/uL (140-400) Neutrophils (%) (Auto) 67 % (31-73) Lymphocytes (%) (Auto) 26 % (24-48) Monocytes (%) (Auto) 3 % (0-9) Eosinophils (%) (Auto) 3 % (0-3) Basophils (%) (Auto) 1 % (0-3) Neutrophils # (Auto) 4.6 x10^3/uL (1.8-7.7) Lymphocytes # (Auto) 1.8 x10^3/uL (1.0-4.8) Monocytes # (Auto) 0.2 x10^3/uL (0.0-1.1) Eosinophils # (Auto) 0.2 x10^3/uL (0.0-0.7) Basophils # (Auto) 0.1 x10^3/uL (0.0-0.2) Sodium Level 142 mmol/L (136-145) Potassium Level 5.2 mmol/L (3.5-5.1) H Chloride Level 100 mmol/L (98-107) Carbon Dioxide Level 26 mmol/L (21-32) Anion Gap 16 (6-14) H Blood Urea Nitrogen 52 mg/dL (7-20) H Creatinine 10.2 mg/dL (0.6-1.0) H Estimated GFR (Cockcroft-Gault) 4.6 BUN/Creatinine Ratio 5 (6-20) L Glucose Level 107 mg/dL (70-99) H Calcium Level 9.1 mg/dL (8.5-10.1) Total Bilirubin 0.4 mg/dL (0.2-1.0) Aspartate Amino Transferase (AST) 25 U/L (15-37) Alanine Aminotransferase (ALT) 9 U/L (14-59) L Alkaline Phosphatase 142 U/L (46-116) H Troponin I Quantitative 0.077 ng/mL (0.000-0.055) Total Protein 7.7 g/dL (6.4-8.2) Albumin 3.3 g/dL (3.4-5.0) L Albumin/Globulin Ratio 0.8 (1.0-1.7) L Laboratory Tests 06/09/19 08:20 Laboratory Tests 06/09/19 08:20 EKG EKG Normal sinus rhythm a rate of 76 bpm, left axis deviation, normal intervals, left ventricular hypertrophy with repolarization abnormality without acute ischemic ST/T changes.[] Radiology/Procedures Radiology/Procedures PROCEDURE: CT HEAD WO CONTRAST CT HEAD INDICATION: Headache, hypertension COMPARISON: 04/14/2019 Exposure: One or more of the following individualized dose reduction techniques were utilized for this examination: 1. Automated exposure control 2. Adjustment of the mA and/or kV according to patient size 3. Use of iterative reconstruction technique TECHNIQUE: 5 mm contiguous axial images were obtained from the skull base to the vertex in both bone and soft tissue algorithm. FINDINGS: Hypodensities identified in the bilateral posterior cerebral hemispheres and right cerebellum likely old infarct similar to prior exam. No evidence of acute intracranial hemorrhage. No extra-axial fluid collections. No mass effect or midline shift. Ventricular size is appropriate. Basal cisterns are patent. No fractures identified.Houston-white differentiation is preserved.Globes and orbits are within normal limits. Paranasal sinuses and mastoid air cells are clear. IMPRESSION: 1. No acute intracranial findings. [] Course & Med Decision Making Course & Med Decision Making Pertinent Labs and Imaging studies reviewed. (See chart for details) []9:48 AM: The patient's condition remained stable. Her headache is improved. Her headache is currently at its baseline status, she states she always has headaches and this headache is no different. She feels ready to go home. Her blood pressure has improved to the 170s systolic. She should be able to get her dialysis at her normal dialysis Center later today. I discussed importance of close follow-up and return precautions. Dragon Disclaimer Dragon Disclaimer This electronic medical record was generated, in whole or in part, using a voice recognition dictation system. Departure Departure Impression: Primary Impression: Hypertensive urgency Additional Impression: ESRD (end stage renal disease) on dialysis Disposition: HOME, SELF-CARE Condition: STABLE Referrals: Tonya LAMAR MD (PCP) Patient Instructions: Dialysis, General Headache Without Cause, Hypertension Problem Qualifiers NIKKY ZAMUDIO MD Jun 09, 2019 07:47
[2019-06-09 08:40] LABS: BASO # 0.1 x10^3/uL (0.0-0.2); BASO % 1 % (0-3); EOS # 0.2 x10^3/uL (0.0-0.7); EOS % 3 % (0-3); HEMATOCRIT 32.9 % (36.0-47.0); LYMPH # 1.8 x10^3/uL (1.0-4.8); LYMPH % 26 % (24-48); MEAN CORPUSCULAR HEMOGLOBIN 30 pg (25-35); MEAN CORPUSCULAR HGB CONC 33 g/dL (31-37); MEAN CORPUSCULAR VOLUME 89 fL (79-100); MONO # 0.2 x10^3/uL (0.0-1.1); MONO % 3 % (0-9); NEUT # 4.6 x10^3/uL (1.8-7.7); NEUT % 67 % (31-73); PLATELET COUNT 251 x10^3/uL (140-400); RED BLOOD COUNT 3.69 x10^6/uL (3.50-5.40); RED CELL DISTRIBUTION WIDTH 16.9 % (11.5-14.5); WHITE BLOOD COUNT 6.9 x10^3/uL (4.0-11.0)
[2019-06-09 08:48] LABS: CALCIUM 9.1 mg/dL (8.5-10.1); CREATININE 10.2 mg/dL (0.6-1.0); GFR 4.6; POTASSIUM 5.2 mmol/L (3.5-5.1)
[2019-06-09 08:53] LABS: ALBUMIN 3.3 g/dL (3.4-5.0); ALBUMIN/GLOBULIN RATIO 0.8 (1.0-1.7); TOTAL BILIRUBIN 0.4 mg/dL (0.2-1.0); TOTAL PROTEIN 7.7 g/dL (6.4-8.2)
--- NOTE | 2019-06-09 08:59 | EKG ---
[facility] [address] [place] [address] Test Date: 2019-06-09 Test Time: 07:49:26 Pat Name: OLLIE LOCO Department: Room: Gender: F [employer]: : 1955 Requested By: NIKKY ZAMUDIO Order Number: [id number] Reading MD: Measurements Intervals [place] Rate: 76 P: 34 [place]: 138 QRS: -19 QRSD: 106 T: 96 QT: 416 QTc: 473 Interpretive Statements SINUS RHYTHM LEFT ATRIAL ABNORMALITY LEFTWARD AXIS LVH WITH REPOLARIZATION ABNORMALITY QRS(T) CONTOUR ABNORMALITY CONSIDER ANTEROSEPTAL MYOCARDIAL DAMAGE ABNORMAL ECG RI6.01 No previous ECG available for comparison
--- NOTE | 2019-06-09 09:07 | RAD ---
CT HEAD INDICATION: Headache, hypertension COMPARISON: 04/14/2019 Exposure: One or more of the following individualized dose reduction techniques were utilized for this examination: 1. Automated exposure control 2. Adjustment of the mA and/or kV according to patient size 3. Use of iterative reconstruction technique TECHNIQUE: 5 mm contiguous axial images were obtained from the skull base to the vertex in both bone and soft tissue algorithm. FINDINGS: Hypodensities identified in the bilateral posterior cerebral hemispheres and right cerebellum likely old infarct similar to prior exam. No evidence of acute intracranial hemorrhage. No extra-axial fluid collections. No mass effect or midline shift. Ventricular size is appropriate. Basal cisterns are patent. No fractures identified.Houston-white differentiation is preserved.Globes and orbits are within normal limits. Paranasal sinuses and mastoid air cells are clear. IMPRESSION: 1. No acute intracranial findings. Electronically signed by: Anand Damian MD (06/09/2019 9:04 AM) [id number]
[2019-06-09 10:47] VITALS: BP 156/78
== END 2019-06-09 10:48 | disposition home or self-care (01) ==
LOC: ER 07:32
DX: I16.0 Hypertensive urgency (principal); I12.0 Hypertensive chronic kidney disease with stage 5 chronic kidney disease or end stage renal disease; N18.6 End stage renal disease; I25.2 Old myocardial infarction; F17.210 Nicotine dependence, cigarettes, uncomplicated; Z99.2 Dependence on renal dialysis; Z86.73 Personal history of transient ischemic attack (TIA), and cerebral infarction without residual deficits; Z88.5 Allergy status to narcotic agent; Z88.8 Allergy status to other drugs, medicaments and biological substances
CPT/HCPCS: 36415; 70450; 80053; 84484; 85025; 93005; 96374; 99285; J3490

== ENCOUNTER 2019-08-18 08:15 | Emergency (ER) | payer OTHER, MEDICAID ==
[~2019-08-18] VITALS: Ht 162.6 cm; Wt 61.2 kg
[2019-08-18 08:57] LABS: CREATININE ISTAT 13.5 mg/dL (0.5-1.4); HEMOGLOBIN ISTAT 10.5 g/dL (12-15); ION CA ISTAT 1.1 mmol/L (1.13-1.32); POTASSIUM ISTAT 4.2 mmol/L (3.5-5.0)
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
[2019-08-18 09:15] VITALS: BP 161/87
== END 2019-08-18 09:41 | disposition home or self-care (01) ==
LOC: ER 08:15
DX: I12.0 Hypertensive chronic kidney disease with stage 5 chronic kidney disease or end stage renal disease (principal); N18.6 End stage renal disease; Z99.2 Dependence on renal dialysis; I25.2 Old myocardial infarction; Z86.73 Personal history of transient ischemic attack (TIA), and cerebral infarction without residual deficits; Z90.49 Acquired absence of other specified parts of digestive tract; Z95.5 Presence of coronary angioplasty implant and graft; Z88.1 Allergy status to other antibiotic agents; Z88.5 Allergy status to narcotic agent
CPT/HCPCS: 80047; 85014; 85018; 99282

== ENCOUNTER 2019-09-04 17:37 | Inpatient (IN) | payer MEDICARE, MEDICAID ==
[~2019-09-04] VITALS: Ht 162.6 cm; Wt 61.0 kg
[2019-09-04 19:10] LABS: BASO % 0 % (0-3); EOS # 0.2 x10^3/uL (0.0-0.7); EOS % 3 % (0-3); HEMATOCRIT 26.6 % (36.0-47.0); LYMPH # 2.2 x10^3/uL (1.0-4.8); LYMPH % 28 % (24-48); MEAN CORPUSCULAR HEMOGLOBIN 30 pg (25-35); MEAN CORPUSCULAR HGB CONC 34 g/dL (31-37); MEAN CORPUSCULAR VOLUME 90 fL (79-100); MONO # 0.5 x10^3/uL (0.0-1.1); MONO % 7 % (0-9); NEUT # 4.9 x10^3/uL (1.8-7.7); NEUT % 63 % (31-73); PLATELET COUNT 212 x10^3/uL (140-400); RED BLOOD COUNT 2.97 x10^6/uL (3.50-5.40); RED CELL DISTRIBUTION WIDTH 14.9 % (11.5-14.5); WHITE BLOOD COUNT 7.8 x10^3/uL (4.0-11.0)
[2019-09-04 19:17] LABS: CALCIUM 8.6 mg/dL (8.5-10.1); CREATININE 12.5 mg/dL (0.6-1.0); GFR 3.7; POTASSIUM 5.4 mmol/L (3.5-5.1)
[2019-09-04 19:25] LABS: ALBUMIN/GLOBULIN RATIO 0.7 (1.0-1.7); MAGNESIUM 2.3 mg/dL (1.8-2.4); TOTAL BILIRUBIN 0.3 mg/dL (0.2-1.0); TOTAL PROTEIN 7.2 g/dL (6.4-8.2)
--- NOTE | 2019-09-04 20:05 | RAD ---
EXAM: CHEST 1 VIEW History: Shortness of breath COMPARISON: 05/12/2019 TECHNIQUE: Single portable radiograph of the chest FINDINGS: Mild cardiomegaly. Mild prominent bilateral interstitial lung markings likely mild infiltrates or congestive changes. The costophrenic sulci are clear and well demarcated. IMPRESSION: Mild prominent bilateral interstitial lung markings likely mild infiltrates or congestive changes. Electronically signed by: Anand Damian MD (09/04/2019 8:01 PM) [id number]
--- NOTE | 2019-09-04 21:20 | PHYS DOC ---
Past Medical History Past Medical History: CVA, Hypertension, [place], Renal Failure, Stroke Additional Past Medical Histor: Chronic Kidney Disease Past Surgical History: Cholecystectomy, Other Additional Past Surgical Histo: cardiac stents, when stroke fluid had to be drained from brain(per fam), Alcohol Use: None Drug Use: None Adult General Chief Complaint Chief Complaint: WEAKNESS/GENERALIZED HPI HPI 64-year-old female with underlying history of hypertension, anemia, end-stage renal disease presents to the emergency department with complaints of weakness, missed dialysis, shortness of breath. Patient states she dialyzes Saturday, missed on Saturday as well as . She denies any nausea, vomiting, chest pain she was of mild shortness of breath. Denies any fever. Chest x-ray was reviewed revealing evidence of mild pulmonary edema however no significant oxygen requirement this time. Nothing makes her symptoms worse, nothing makes her symptoms better. Patient is concerned about laboratory abnormalities given her missing dialysis. Review of Systems Review of Systems Constitutional: Denies fever or chills, + weakness Respiratory: SOB Cardiovascular: No additional information not addressed in HPI [] GI: Denies abdominal pain, nausea, vomiting, bloody stools or diarrhea [] Musculoskeletal: Denies back pain or joint pain [] Integument: Denies rash or skin lesions [] Neurologic: Denies headache, focal weakness or sensory changes [] All other systems were reviewed and found to be within normal limits, except as documented in this note. Allergies Allergies Allergies Coded Allergies Type Severity Reaction Last Updated Verified hydromorphone Allergy Severe itching, sob 07/18/18 Yes metoprolol Allergy Intermediate Itching 07/18/18 Yes morphine Allergy Intermediate itching, sob 07/18/18 Yes Physical Exam Physical Exam Constitutional: Well developed, well nourished, no acute distress, non-toxic appearance. [] HENT: Normocephalic, atraumatic, bilateral external ears normal, oropharynx moist, no oral exudates, nose normal. [] Eyes: PERRLA, EOMI, conjunctiva normal, no discharge. [] Cardiovascular:Heart rate regular rhythm, no murmur [] Lungs & Thorax: Decreased BS Abdomen: Bowel sounds normal, soft, no tenderness, no masses, no pulsatile masses. [] Skin: Warm, dry, no erythema, no rash. [] Back: No tenderness, no CVA tenderness. [] Extremities: No tenderness, no edema. [] Neurologic: Alert and oriented X 3, no focal deficits noted. [] Psychologic: Affect normal, judgement normal, mood normal. [] Current Patient Data Vital Signs Vital Signs Date Time Temp Pulse Resp B/P (MAP) Pulse Ox O2 Delivery O2 Flow Rate FiO2 09/04/19 21:24 58 98 09/04/19 18:40 98.7 20 163/82 (109) Room Air 98.7 Lab Values Laboratory Tests Test 09/04/19 18:49 White Blood Count 7.8 x10^3/uL (4.0-11.0) Red Blood Count 2.97 x10^6/uL (3.50-5.40) L Hemoglobin 9.0 g/dL (12.0-15.5) L Hematocrit 26.6 % (36.0-47.0) L Mean Corpuscular Volume 90 fL (79-100) Mean Corpuscular Hemoglobin 30 pg (25-35) Mean Corpuscular Hemoglobin Concent 34 g/dL (31-37) Red Cell Distribution Width 14.9 % (11.5-14.5) H Platelet Count 212 x10^3/uL (140-400) Neutrophils (%) (Auto) 63 % (31-73) Lymphocytes (%) (Auto) 28 % (24-48) Monocytes (%) (Auto) 7 % (0-9) Eosinophils (%) (Auto) 3 % (0-3) Basophils (%) (Auto) 0 % (0-3) Neutrophils # (Auto) 4.9 x10^3/uL (1.8-7.7) Lymphocytes # (Auto) 2.2 x10^3/uL (1.0-4.8) Monocytes # (Auto) 0.5 x10^3/uL (0.0-1.1) Eosinophils # (Auto) 0.2 x10^3/uL (0.0-0.7) Basophils # (Auto) 0.0 x10^3/uL (0.0-0.2) Sodium Level 143 mmol/L (136-145) Potassium Level 5.4 mmol/L (3.5-5.1) H Chloride Level 103 mmol/L (98-107) Carbon Dioxide Level 22 mmol/L (21-32) Anion Gap 18 (6-14) H Blood Urea Nitrogen 113 mg/dL (7-20) H Creatinine 12.5 mg/dL (0.6-1.0) H Estimated GFR (Cockcroft-Gault) 3.7 BUN/Creatinine Ratio 9 (6-20) Glucose Level 139 mg/dL (70-99) H Calcium Level 8.6 mg/dL (8.5-10.1) Magnesium Level 2.3 mg/dL (1.8-2.4) Total Bilirubin 0.3 mg/dL (0.2-1.0) Aspartate Amino Transferase (AST) 32 U/L (15-37) Alanine Aminotransferase (ALT) 26 U/L (14-59) Alkaline Phosphatase 199 U/L (46-116) H Total Protein 7.2 g/dL (6.4-8.2) Albumin 3.0 g/dL (3.4-5.0) L Albumin/Globulin Ratio 0.7 (1.0-1.7) L Laboratory Tests 09/04/19 18:49 Laboratory Tests 09/04/19 18:49 EKG EKG [] Radiology/Procedures Radiology/Procedures [facility] [address] [place], [place] [id number] IMAGING REPORT Signed PATIENT: OLLIE LOCO ACCOUNT: [id number] : 1955 LOCATION: ER AGE: 64 SEX: F EXAM STATUS: REG ER ORD. PHYSICIAN: JULIO WALLACE MD REASON: missed dialysis, cough PROCEDURE: CHEST AP ONLY EXAM: CHEST 1 VIEW History: Shortness of breath COMPARISON: 05/12/2019 TECHNIQUE: Single portable radiograph of the chest FINDINGS: Mild cardiomegaly. Mild prominent bilateral interstitial lung markings likely mild infiltrates or congestive changes. The costophrenic sulci are clear and well demarcated. IMPRESSION: Mild prominent bilateral interstitial lung markings likely mild infiltrates or congestive changes. Electronically signed by: Anand Damian MD (09/04/2019 8:01 PM) [id number] DICTATED and SIGNED BY: ANAND DAMIAN MD DATE: 09/04/192000 [] Course & Med Decision Making Course & Med Decision Making Pertinent Labs and Imaging studies reviewed. (See chart for details) []64-year-old female with underlying history of hypertension, anemia, end-stage renal disease presents to the emergency department with complaints of weakness, missed dialysis, shortness of breath. Patient states she dialyzes Saturday, missed on Saturday as well as . She denies any nausea, vomiting, chest pain she was of mild shortness of breath. Denies any fever. Chest x-ray was reviewed revealing evidence of mild pulmonary edema however no significant oxygen requirement this time. Nothing makes her symptoms worse, nothing makes her symptoms better. Patient is concerned about laboratory abnormalities given her missing dialysis. Labs and imaging reviewed, chest x-ray reveals evidence of mild pulmonary edema, will blood cell count 7.8, creat is 12.5, BUN 113, potassium 5.4. Discussed findings with patient, given mild shortness breath and pulmonary edema as well as missed dialysis with hyperkalemia we'll treat medically and admit for further hemodialysis tomorrow Patient will be admitted to the hospitalist with consultation to nephrology. Dragon Disclaimer Dragon Disclaimer This electronic medical record was generated, in whole or in part, using a voice recognition dictation system. Departure Departure Impression: Primary Impression: Weakness Additional Impressions: Hyperkalemia ESRD (end stage renal disease) on dialysis Pulmonary edema Disposition: ADMITTED INPATIENT Admitting Physician: ANNA Condition: STABLE Referrals: Tonya LAMAR MD (PCP) Problem Qualifiers JULIO WALLACE MD Sep 04, 2019 21:20
[2019-09-04] MEDS ORDERED: INSULIN REGULAR 100 UNIT/ML 3ML VIAL. IV ONE (22:00)
[2019-09-04] MEDS ORDERED: CALCIUM GLUCONATE 1,000 MG/10 ML VIAL. IVP ONE (22:00)
[2019-09-04] MEDS ORDERED: DEXTROSE 50% 25 GM / 50ML DISP.SYRIN. IV ONE (22:00)
[2019-09-04] MEDS ORDERED: ONDANSETRON PF 4 MG/2 ML VIAL. IV PRN (22:45)
[2019-09-04] MEDS ORDERED: ACETAMINOPHEN 325 MG TABLET. PO PRN (22:45)
[2019-09-05 03:57] VITALS: BP 157/83
[2019-09-05] MEDS ORDERED: HYDR-2869 PO (04:32)
[2019-09-05] MEDS ORDERED: LEXAPRO20 MG PO (04:32)
[2019-09-05] MEDS ORDERED: DIAZ5TAB4 PO (04:32)
[2019-09-05] MEDS ORDERED: DOXA8TAB59 PO (04:32)
[2019-09-05] MEDS ORDERED: CLON0.3T PO (04:32)
--- NOTE | 2019-09-05 04:37 | NUR ---
called [facility] pharmacy for pt's home meds and reviewed all listed meds from pharmacy.
[2019-09-05 07:12] LABS: BASO % 1 % (0-3); EOS # 0.2 x10^3/uL (0.0-0.7); EOS % 4 % (0-3); HEMATOCRIT 26.5 % (36.0-47.0); LYMPH # 1.9 x10^3/uL (1.0-4.8); LYMPH % 34 % (24-48); MEAN CORPUSCULAR HEMOGLOBIN 31 pg (25-35); MEAN CORPUSCULAR HGB CONC 34 g/dL (31-37); MEAN CORPUSCULAR VOLUME 91 fL (79-100); MONO # 0.4 x10^3/uL (0.0-1.1); MONO % 7 % (0-9); NEUT % 54 % (31-73); PLATELET COUNT 196 x10^3/uL (140-400); RED BLOOD COUNT 2.92 x10^6/uL (3.50-5.40); RED CELL DISTRIBUTION WIDTH 15.2 % (11.5-14.5); WHITE BLOOD COUNT 5.5 x10^3/uL (4.0-11.0)
[2019-09-05 07:13] LABS: ALBUMIN 2.9 g/dL (3.4-5.0); ALBUMIN/GLOBULIN RATIO 0.9 (1.0-1.7); CALCIUM 8.8 mg/dL (8.5-10.1); CREATININE 12.6 mg/dL (0.6-1.0); GFR 3.6; POTASSIUM 5.3 mmol/L (3.5-5.1); TOTAL BILIRUBIN 0.3 mg/dL (0.2-1.0); TOTAL PROTEIN 6.3 g/dL (6.4-8.2)
[2019-09-05 07:15] VITALS: BP 171/89
[2019-09-05] MEDS ORDERED: IV NORMAL SALINE 1000ML BAG 1,000 ML IV PRN ×2 (10:16)
[2019-09-05] MEDS ORDERED: LIDOCAINE 1% PF 2 ML VIAL. ONE (10:22)
[2019-09-05] MEDS ORDERED: LIDOCAINE 1% Multi-Dose 20 ML VIAL. ID ONE (10:30)
[2019-09-05] MEDS ORDERED: DIALYSIS PATIENT. MC PRN ×2 (10:30)
--- NOTE | 2019-09-05 11:08 | PDOC1 ---
History and Physical Date of Admission Date of Admission DATE: 09/05/19 TIME: 11:08 Identification/Chief Complaint Chief Complaint SEEN IN ER , 64-year-old female with underlying history of hypertension, anemia, end-stage renal disease presents to the emergency department with complaints of weakness, missed dialysis, shortness of breath. Patient states she dialyzes Saturday, missed on Saturday as well as . She denies any nausea, vomiting, chest pain she was of mild shortness of breath. Denies any fever. Chest x-ray was reviewed revealing evidence of mild pulmonary edema States she fell in her driveway a few days ago, and this is why she missed dialysis, did not call family or friends for help seen in dailysis this am she appears depressed, is a fall risk Past Medical History Past Medical History Past Medical History Past Medical History Past Medical History: CVA, Hypertension, [place], Renal Failure, Stroke Additional Past Medical Histor: Chronic Kidney Disease Past Surgical History: Cholecystectomy, Other Additional Past Surgical Histo: cardiac stents, when stroke fluid had to be drained from brain(per fam), Alcohol Use: None Drug Use: None FHX HTN Cardiovascular: CAD, CHF, HTN, Hyperlipidemia, Valve insufficiency Pulmonary: COPD CENTRAL NERVOUS SYSTEM: CVA, Dementia, Other GI: Irritable bowel disease Heme/Onc: No pertinent hx Hepatobiliary: No pertinent hx Psych: Anxiety, Depression Musculoskeletal: Osteoarthritis Rheumatologic: No pertinent hx Infectious disease: No pertinent hx Renal/: Chronic renal failure Endocrine: Hypothyroidism, Hyperparathyroidism Past Surgical History Past Surgical History: Cholecystectomy Family History Family History: Cancer, Hypertension Family History: Other Social History Smoke: <1 pack per day ALCOHOL: none Drugs: None Current Problem List Problem List Problems Medical Problems: (1) Hyperkalemia Status: Acute (2) Pulmonary edema Status: Acute (3) Weakness Status: Acute Current Medications Current Medications Current Medications Calcium Gluconate (Calcium Gluconate) 1,000 mg 1X ONCE IVP Last administered on 09/04/19at 21:44; Start 09/04/19 at 22:00; Stop 09/04/19 at 22:01; Status DC Dextrose (Dextrose 50%-Water Syringe) 25 gm 1X ONCE IV Last administered on 09/04/19at 21:44; Start 09/04/19 at 22:00; Stop 09/04/19 at 22:01; Status DC Insulin Human Regular (HumuLIN R VIAL) 10 unit 1X ONCE IV Last administered on 09/04/19at 21:44; Start 09/04/19 at 22:00; Stop 09/04/19 at 22:01; Status DC Ondansetron HCl (Zofran) 4 mg PRN Q8HRS PRN IV NAUSEA/VOMITING 1ST CHOICE; Start 09/04/19 at 22:45; Stop 09/05/19 at 22:44 Acetaminophen (Tylenol) 650 mg PRN Q4HRS PRN PO FEVER; Start 09/04/19 at 22:45; Stop 09/05/19 at 22:44 Sodium Chloride 1,000 ml @ 1,000 mls/hr Q1H PRN IV hypotension; Start 09/05/19 at 10:16; Stop 09/05/19 at 16:15 Sodium Chloride 1,000 ml @ 400 mls/hr Q2H30M PRN IV PATENCY; Start 09/05/19 at 10:16; Stop 09/05/19 at 22:15 Info (PHARMACY MONITORING -- do not chart) 1 each PRN DAILY PRN MC SEE COMMENTS; Start 09/05/19 at 10:30; Status UNV Info (PHARMACY MONITORING -- do not chart) 1 each PRN DAILY PRN MC SEE COMMENTS; Start 09/05/19 at 10:30 Lidocaine HCl (Lidocaine 1% 20ml Vial) 20 ml 1X ONCE ID ; Start 09/05/19 at 10:30; Stop 09/05/19 at 10:31; Status DC Lidocaine HCl (Xylocaine-Mpf 1% 2ml Vial) 2 ml STK-MED ONCE .ROUTE ; Start 09/05/19 at 10:22; Stop 09/05/19 at 10:22; Status DC Active Scripts Active Mirtazapine 15 Mg Tablet 30 Mg PO QHS 30 Days Aspirin Ec (Aspirin) 81 Mg Tablet.dr 81 Mg PO DAILYWBKFT 30 Days Alprazolam 0.25 Mg Tablet 0.25 Mg PO PRN BID PRN 30 Days Jolie-Rossana Tablet (Folic Acid/Vitamin B Comp W-C) 0.8 Mg Tablet 1 Tab PO DAILY 30 Days Brent 10-325 Tablet (Acetaminophen/Hydrocodone Bitart) 1 Each Tablet 1 Tab PO PRN Q6HRS PRN 30 Days Atorvastatin Calcium 40 Mg Tablet 40 Mg PO QHS Aricept (Donepezil Hcl) 5 Mg Tablet 5 Mg PO HS 30 Days Reported Lexapro (Escitalopram Oxalate) 20 Mg Tablet 1 Tab PO DAILY Clonidine Hcl 0.3 Mg Tablet 0.3 Mg PO BID Hydralazine Hcl 50 Mg Tablet 1 Tab PO BID Doxazosin Mesylate 8 Mg Tablet 1 Tab PO HS Diazepam 5 Mg Tablet 5 Mg PO DAILY Amlodipine Besylate 10 Mg Tablet 10 Mg PO DAILY Velphoro (Sucroferric Oxyhydroxide) 500 Mg Tab.chew 500 Mg PO TID Allergies Allergies: Coded Allergies: hydromorphone (Verified Allergy, Severe, itching, sob, 07/18/18) metoprolol (Verified Allergy, Intermediate, Itching, 07/18/18) morphine (Verified Allergy, Intermediate, itching, sob, 07/18/18) ROS Review of System Review of Systems Review of Systems Constitutional: Denies fever or chills, + weakness Respiratory: SOB Cardiovascular: No additional information not addressed in HPI [] GI: Denies abdominal pain, nausea, vomiting, bloody stools or diarrhea [] Musculoskeletal: MILD LOW back pain C/O RIGHT ELBOW CONTUSION joint pain [] Integument: Denies rash or skin lesions [] Neurologic: Denies headache, focal weakness or sensory changes [] 14 PT systems were reviewed and found to be within normal limits, except as documented Musculoskeletal: Yes Muscular Weakness Physical Exam Physical Exam Physical Exam Physical Exam Constitutional: Well developed, well nourished, no acute distress, non-toxic appearance. [] HENT: Normocephalic, atraumatic, bilateral external ears normal, oropharynx moist, no oral exudates, nose normal. [] Eyes: PERRLA, EOMI, conjunctiva normal, no discharge. [] Cardiovascular:Heart rate regular rhythm, no murmur [] Lungs & Thorax: Decreased BS Abdomen: Bowel sounds normal, soft, no tenderness, no masses, no pulsatile masses. [] Skin: Warm, dry, no erythema, no rash. [] no open lesions Back: No tenderness, no CVA tenderness. [] Extremities: No tenderness, no edema. [] Neurologic: Alert and oriented X 3, no focal deficits noted. [] Psychologic: Affect normal, judgment poor mood flat[] General: Alert, Oriented X3, Cooperative, No acute distress HEENT: Atraumatic, Mucous membr. moist/pink Lungs: Clear to auscultation, Normal air movement Heart: RRR, other (GR 3 /6 FARHANA) Breasts: Not examined Abdomen: Normal bowel sounds, Soft, No tenderness Rectal Exam: not examined PELVIC: Examination not indicated Extremities: No clubbing, No cyanosis Skin: No breakdown Neuro: Normal speech, Normal tone, Sensation intact, Cranial nerves 3-12 NL Psych/Mental Status: Mental status NL Vitals Vitals Vital Signs Date Time Temp Pulse Resp B/P (MAP) Pulse Ox O2 Delivery O2 Flow Rate FiO2 09/05/19 07:15 98.0 103 18 171/89 (116) 99 Room Air 98.0 Labs Labs Laboratory Tests Test 09/04/19 18:49 09/05/19 05:03 White Blood Count 7.8 x10^3/uL (4.0-11.0) 5.5 x10^3/uL (4.0-11.0) Red Blood Count 2.97 x10^6/uL (3.50-5.40) 2.92 x10^6/uL (3.50-5.40) Hemoglobin 9.0 g/dL (12.0-15.5) 9.0 g/dL (12.0-15.5) Hematocrit 26.6 % (36.0-47.0) 26.5 % (36.0-47.0) Mean Corpuscular Volume 90 fL (79-100) 91 fL (79-100) Mean Corpuscular Hemoglobin 30 pg (25-35) 31 pg (25-35) Mean Corpuscular Hemoglobin Concent 34 g/dL (31-37) 34 g/dL (31-37) Red Cell Distribution Width 14.9 % (11.5-14.5) 15.2 % (11.5-14.5) Platelet Count 212 x10^3/uL (140-400) 196 x10^3/uL (140-400) Neutrophils (%) (Auto) 63 % (31-73) 54 % (31-73) Lymphocytes (%) (Auto) 28 % (24-48) 34 % (24-48) Monocytes (%) (Auto) 7 % (0-9) 7 % (0-9) Eosinophils (%) (Auto) 3 % (0-3) 4 % (0-3) Basophils (%) (Auto) 0 % (0-3) 1 % (0-3) Neutrophils # (Auto) 4.9 x10^3/uL (1.8-7.7) 3.0 x10^3/uL (1.8-7.7) Lymphocytes # (Auto) 2.2 x10^3/uL (1.0-4.8) 1.9 x10^3/uL (1.0-4.8) Monocytes # (Auto) 0.5 x10^3/uL (0.0-1.1) 0.4 x10^3/uL (0.0-1.1) Eosinophils # (Auto) 0.2 x10^3/uL (0.0-0.7) 0.2 x10^3/uL (0.0-0.7) Basophils # (Auto) 0.0 x10^3/uL (0.0-0.2) 0.0 x10^3/uL (0.0-0.2) Sodium Level 143 mmol/L (136-145) 139 mmol/L (136-145) Potassium Level 5.4 mmol/L (3.5-5.1) 5.3 mmol/L (3.5-5.1) Chloride Level 103 mmol/L (98-107) 102 mmol/L (98-107) Carbon Dioxide Level 22 mmol/L (21-32) 20 mmol/L (21-32) Anion Gap 18 (6-14) 17 (6-14) Blood Urea Nitrogen 113 mg/dL (7-20) 122 mg/dL (7-20) Creatinine 12.5 mg/dL (0.6-1.0) 12.6 mg/dL (0.6-1.0) Estimated GFR (Cockcroft-Gault) 3.7 3.6 BUN/Creatinine Ratio 9 (6-20) 10 (6-20) Glucose Level 139 mg/dL (70-99) 114 mg/dL (70-99) Calcium Level 8.6 mg/dL (8.5-10.1) 8.8 mg/dL (8.5-10.1) Magnesium Level 2.3 mg/dL (1.8-2.4) Total Bilirubin 0.3 mg/dL (0.2-1.0) 0.3 mg/dL (0.2-1.0) Aspartate Amino Transf (AST/SGOT) 32 U/L (15-37) 23 U/L (15-37) Alanine Aminotransferase (ALT/SGPT) 26 U/L (14-59) 24 U/L (14-59) Alkaline Phosphatase 199 U/L (46-116) 187 U/L (46-116) Total Protein 7.2 g/dL (6.4-8.2) 6.3 g/dL (6.4-8.2) Albumin 3.0 g/dL (3.4-5.0) 2.9 g/dL (3.4-5.0) Albumin/Globulin Ratio 0.7 (1.0-1.7) 0.9 (1.0-1.7) Laboratory Tests Test 09/04/19 18:49 09/05/19 05:03 White Blood Count 7.8 x10^3/uL (4.0-11.0) 5.5 x10^3/uL (4.0-11.0) Red Blood Count 2.97 x10^6/uL (3.50-5.40) 2.92 x10^6/uL (3.50-5.40) Hemoglobin 9.0 g/dL (12.0-15.5) 9.0 g/dL (12.0-15.5) Hematocrit 26.6 % (36.0-47.0) 26.5 % (36.0-47.0) Mean Corpuscular Volume 90 fL (79-100) 91 fL (79-100) Mean Corpuscular Hemoglobin 30 pg (25-35) 31 pg (25-35) Mean Corpuscular Hemoglobin Concent 34 g/dL (31-37) 34 g/dL (31-37) Red Cell Distribution Width 14.9 % (11.5-14.5) 15.2 % (11.5-14.5) Platelet Count 212 x10^3/uL (140-400) 196 x10^3/uL (140-400) Neutrophils (%) (Auto) 63 % (31-73) 54 % (31-73) Lymphocytes (%) (Auto) 28 % (24-48) 34 % (24-48) Monocytes (%) (Auto) 7 % (0-9) 7 % (0-9) Eosinophils (%) (Auto) 3 % (0-3) 4 % (0-3) Basophils (%) (Auto) 0 % (0-3) 1 % (0-3) Neutrophils # (Auto) 4.9 x10^3/uL (1.8-7.7) 3.0 x10^3/uL (1.8-7.7) Lymphocytes # (Auto) 2.2 x10^3/uL (1.0-4.8) 1.9 x10^3/uL (1.0-4.8) Monocytes # (Auto) 0.5 x10^3/uL (0.0-1.1) 0.4 x10^3/uL (0.0-1.1) Eosinophils # (Auto) 0.2 x10^3/uL (0.0-0.7) 0.2 x10^3/uL (0.0-0.7) Basophils # (Auto) 0.0 x10^3/uL (0.0-0.2) 0.0 x10^3/uL (0.0-0.2) Sodium Level 143 mmol/L (136-145) 139 mmol/L (136-145) Potassium Level 5.4 mmol/L (3.5-5.1) 5.3 mmol/L (3.5-5.1) Chloride Level 103 mmol/L (98-107) 102 mmol/L (98-107) Carbon Dioxide Level 22 mmol/L (21-32) 20 mmol/L (21-32) Anion Gap 18 (6-14) 17 (6-14) Blood Urea Nitrogen 113 mg/dL (7-20) 122 mg/dL (7-20) Creatinine 12.5 mg/dL (0.6-1.0) 12.6 mg/dL (0.6-1.0) Estimated GFR (Cockcroft-Gault) 3.7 3.6 BUN/Creatinine Ratio 9 (6-20) 10 (6-20) Glucose Level 139 mg/dL (70-99) 114 mg/dL (70-99) Calcium Level 8.6 mg/dL (8.5-10.1) 8.8 mg/dL (8.5-10.1) Magnesium Level 2.3 mg/dL (1.8-2.4) Total Bilirubin 0.3 mg/dL (0.2-1.0) 0.3 mg/dL (0.2-1.0) Aspartate Amino Transf (AST/SGOT) 32 U/L (15-37) 23 U/L (15-37) Alanine Aminotransferase (ALT/SGPT) 26 U/L (14-59) 24 U/L (14-59) Alkaline Phosphatase 199 U/L (46-116) 187 U/L (46-116) Total Protein 7.2 g/dL (6.4-8.2) 6.3 g/dL (6.4-8.2) Albumin 3.0 g/dL (3.4-5.0) 2.9 g/dL (3.4-5.0) Albumin/Globulin Ratio 0.7 (1.0-1.7) 0.9 (1.0-1.7) Images Images TDI Lateral E' P. V 5.21cm/s Medial E' P. V 3.54cm/s E/Lateral E' 20.8 E/Medial E' 30.6 Tricuspid Valve TR P. Velocity 280cm/s RAP ESTIMATE 3mmHg TR Peak Gr. 31mmHg RVSP 34mmHg Pulmonary Vein S1 Velocity 47.5cm/s S2 Velocity 51.87cm/s D2 Velocity 51.9cm/s PVa duration 97msec LEFT VENTRICLE The left ventricle is normal size. There is moderate concentric left ventricular hypertrophy. The left ventricular systolic function is normal. The Ejection Fraction is 60-65%. There is normal LV segmental wall motion. Transmitral Doppler flow pattern is Grade I-abnormal relaxation pattern. RIGHT VENTRICLE The right ventricle is normal size. There is normal right ventricular wall thickness. The right ventricular systolic function is normal. ATRIA The left atrium is mildly dilated. The right atrium size is normal. The inter atrial septum is intact with no evidence for an atrial septal defect or patent foramen ovale as noted on 2-D or Doppler imaging. AORTIC VALVE The aortic valve is mildly to moderately thickened. Doppler and Color Flow revealed mild to moderate aortic regurgitation. Mild aortic valvular stenosis. Maximum pressure gradient of 30 mmHg and mean pressure gradient of 18 mmHg. MITRAL VALVE The mitral valve is normal in structure and function. There is no evidence of mitral valve prolapse. There is no mitral valve stenosis. Doppler and Color Flow revealed no mitral valve regurgitation noted. TRICUSPID VALVE The tricuspid valve is normal in structure and function. Doppler and Color Flow revealed trace tricuspid regurgitation with an estimated PAP 34 mmHg. There is no tricuspid valve stenosis. PULMONIC VALVE The pulmonic valve is not well visualized. Doppler and Color Flow revealed no pulmonic valvular regurgitation. GREAT VESSELS The aortic root is normal in size. The IVC is normal in size and collapses >50% with inspiration. PERICARDIAL EFFUSION There is no evidence of significant pericardial effusion. Critical Notification Critical Value: No <Conclusion> The left ventricular systolic function is normal. The Ejection Fraction is 60-65%. There is normal LV segmental wall motion. Transmitral Doppler flow pattern is Grade I-abnormal relaxation pattern. Mild aortic valvular stenosis. Mild to moderate aortic regurgitation. Trace tricuspid regurgitation with an estimated PAP 34 mmHg. There is no evidence of significant pericardial effusion. Signed by : Lowell Orlando, Electronically Approved : 05/14/2019 08:34:59 EXAM: CHEST 1 VIEW History: Shortness of breath COMPARISON: 05/12/2019 TECHNIQUE: Single portable radiograph of the chest FINDINGS: Mild cardiomegaly. Mild prominent bilateral interstitial lung markings likely mild infiltrates or congestive changes. The costophrenic sulci are clear and well demarcated. IMPRESSION: Mild prominent bilateral interstitial lung markings likely mild infiltrates or congestive changes. Electronically signed by: Anand Vale MD (09/04/2019 8:01 PM) [id number] DICTATED and SIGNED BY: ANAND VALE MD DATE: 09/04/192000 VTE Prophylaxis Ordered VTE Prophylaxis Devices: No VTE Pharmacological Prophylaxi: Yes Assessment/Plan Assessment/Plan Impression: Weakness gait instability with recent fall Hyperkalemia ESRD (end stage renal disease) on dialysis Pulmonary edema Mild aortic valvular stenosis.Mild to moderate aortic regurgitation. ECHO 03/23 HYPERTENSION DEPRESSION ADMITTED nephrology consult dialysis today PT/OT TELE FOLLOW K DVT PROPHYLAXIS, HEPARIN 73 min pt exam, chart review, > 50% of time spent with exam, chart review, pt care coordination ANTHONY VELASQUEZ MD Sep 05, 2019 11:08
--- NOTE | 2019-09-05 11:32 | PDOC2 ---
CONSULT Date of Consult Date of Consult DATE: 09/05/19 TIME: 11:24 Reason for Consult Reason for Consult: ESRD, HD , Pulm edema Referring Physician Referring Physician: Dr Everett Identification/Chief Complaint Chief Complaint Weakness Source Source: Chart review, Patient History of Present Illness Reason for Visit: Alice is a pleasant 64-year-old -[place] female with underlying history of end-stage renal disease most likely due to hypertension. She dialyzes on a Saturday schedule at [facility] under the care of Dr. Bone. She has missed approximately 1 week of dialysis since she fell last week. She has developed progressive weakness and hence presented to the ER for further evaluation of the same. She lives with family member. She did not endorse any shortness of breath at presentation however chest x-ray did show mild pulmonary edema. She was not noted to be hypoxemic. She was noted to have m arginal potassium and was admitted the hospital for further evaluation and workup of her weakness. Past Medical History Cardiovascular: CAD, CHF, HTN, Hyperlipidemia, Valve insufficiency Pulmonary: COPD CENTRAL NERVOUS SYSTEM: CVA, Dementia, Other GI: Irritable bowel disease Heme/Onc: No pertinent hx Hepatobiliary: No pertinent hx Psych: Anxiety, Depression Musculoskeletal: Osteoarthritis Rheumatologic: No pertinent hx Infectious disease: No pertinent hx Renal/: Chronic renal failure Endocrine: Hypothyroidism, Hyperparathyroidism Past Surgical History Past Surgical History: Cholecystectomy Family History Family History: Cancer, Hypertension Social History Social History: Other ALCOHOL: none Drugs: None Lives: Alone Current Problem List Problem List Problems Medical Problems: (1) Hyperkalemia Status: Acute (2) Pulmonary edema Status: Acute (3) Weakness Status: Acute Current Medications Current Medications Current Medications Calcium Gluconate (Calcium Gluconate) 1,000 mg 1X ONCE IVP Last administered on 09/04/19at 21:44; Start 09/04/19 at 22:00; Stop 09/04/19 at 22:01; Status DC Dextrose (Dextrose 50%-Water Syringe) 25 gm 1X ONCE IV Last administered on 09/04/19at 21:44; Start 09/04/19 at 22:00; Stop 09/04/19 at 22:01; Status DC Insulin Human Regular (HumuLIN R VIAL) 10 unit 1X ONCE IV Last administered on 09/04/19at 21:44; Start 09/04/19 at 22:00; Stop 09/04/19 at 22:01; Status DC Ondansetron HCl (Zofran) 4 mg PRN Q8HRS PRN IV NAUSEA/VOMITING 1ST CHOICE; Start 09/04/19 at 22:45; Stop 09/05/19 at 22:44 Acetaminophen (Tylenol) 650 mg PRN Q4HRS PRN PO FEVER; Start 09/04/19 at 22:45; Stop 09/05/19 at 22:44 Sodium Chloride 1,000 ml @ 1,000 mls/hr Q1H PRN IV hypotension; Start 09/05/19 at 10:16; Stop 09/05/19 at 16:15 Sodium Chloride 1,000 ml @ 400 mls/hr Q2H30M PRN IV PATENCY; Start 09/05/19 at 10:16; Stop 09/05/19 at 22:15 Info (PHARMACY MONITORING -- do not chart) 1 each PRN DAILY PRN MC SEE COMMENTS; Start 09/05/19 at 10:30; Status UNV Info (PHARMACY MONITORING -- do not chart) 1 each PRN DAILY PRN MC SEE COMMENTS; Start 09/05/19 at 10:30 Lidocaine HCl (Lidocaine 1% 20ml Vial) 20 ml 1X ONCE ID ; Start 09/05/19 at 10:30; Stop 09/05/19 at 10:31; Status DC Lidocaine HCl (Xylocaine-Mpf 1% 2ml Vial) 2 ml STK-MED ONCE .ROUTE ; Start 09/05/19 at 10:22; Stop 09/05/19 at 10:22; Status DC Active Scripts Active Mirtazapine 15 Mg Tablet 30 Mg PO QHS 30 Days Aspirin Ec (Aspirin) 81 Mg Tablet.dr 81 Mg PO DAILYWBKFT 30 Days Alprazolam 0.25 Mg Tablet 0.25 Mg PO PRN BID PRN 30 Days Jolie-Rossana Tablet (Folic Acid/Vitamin B Comp W-C) 0.8 Mg Tablet 1 Tab PO DAILY 30 Days Usk 10-325 Tablet (Acetaminophen/Hydrocodone Bitart) 1 Each Tablet 1 Tab PO PRN Q6HRS PRN 30 Days Atorvastatin Calcium 40 Mg Tablet 40 Mg PO QHS Aricept (Donepezil Hcl) 5 Mg Tablet 5 Mg PO HS 30 Days Reported Lexapro (Escitalopram Oxalate) 20 Mg Tablet 1 Tab PO DAILY Clonidine Hcl 0.3 Mg Tablet 0.3 Mg PO BID Hydralazine Hcl 50 Mg Tablet 1 Tab PO BID Doxazosin Mesylate 8 Mg Tablet 1 Tab PO HS Diazepam 5 Mg Tablet 5 Mg PO DAILY Amlodipine Besylate 10 Mg Tablet 10 Mg PO DAILY Velphoro (Sucroferric Oxyhydroxide) 500 Mg Tab.chew 500 Mg PO TID Allergies Allergies: Coded Allergies: hydromorphone (Verified Allergy, Severe, itching, sob, 07/18/18) metoprolol (Verified Allergy, Intermediate, Itching, 07/18/18) morphine (Verified Allergy, Intermediate, itching, sob, 07/18/18) ROS Review of System 10 point review of systems are negative other than as reviewed under history of present illness Physical Exam Physical Exam General Appearance: Awake Alert Oriented x 2 In no visible Distress Eyes: VIsion Unchanged Conjunctiva Normal EN: No EN Drainage Mucous Memb. moist Neck: no JVD no JVP Supple no Thyromegaly CVS: S1 S2 soft Murmur No Gallop No Rub no Edema Resp: no Rales no Rhonchi no Acc. Muscle use GI: BAS +ve NO Bruit Non Tender Non Distended : no CVA tenderness; no Suprapubic Tenderness SKIN: no Rashes Breast Exam deferred Mu.Sk: Adequate ROM no Muscle Atrophy Heme: Unable to palpate Obvious LAD no Splenomegaly NEURO: Good Strength and Tone Cranial Nerves II - XII grossly intact Psych: ? Depressed no Active hallucination Vital Signs Vital Signs Date Time Temp Pulse Resp B/P (MAP) Pulse Ox O2 Delivery O2 Flow Rate FiO2 09/05/19 08:00 Room Air 09/05/19 07:15 98.0 103 18 171/89 (116) 99 98.0 Assessment & Plan ESRD: Patient was seen on hemodialysis and is tolerating well. Vital signs on hemodialysis she'll blood pressure 168/85 with 161. She is afebrile. Dialysis as below F 180 NR 3.5 Hrs 2 K 2.5 Ca 140 Na 35 HC03 Qb 350 + Qd 500+ Heparin 0 Units Uf 3 - 4 Kgs or to dry weight as tolerated May give 25-50 gms of 25% Albumin if needed to maintain Hemodynamic stability Treatment plan reviewed and discussed with superintendent laundry Anemia: Epo as ordered; transfuse with next HD as needed. Pulmonary edema: Suspect due to numerous missed dialysis. No hypoxemia. Ultrafilter on dialysis as tolerated Malignant HTN associated with ESRD: Reevaluate blood pressures once fluid status is optimized. Current BP meds reviewed. Bone & Mineral: Follow phosphorus levels and alter binder regimen as needed Hyperkalemia: Presumably due to numerous missed dialysis. Anticipate correction with dialysis today Hypoalbuminemia: Unclear etiology. High-protein diet will be emphasized Discussed Plan of Care and prognosis etc. at length with family. Labs Labs Laboratory Tests Test 09/04/19 18:49 09/05/19 05:03 White Blood Count 7.8 x10^3/uL (4.0-11.0) 5.5 x10^3/uL (4.0-11.0) Red Blood Count 2.97 x10^6/uL (3.50-5.40) 2.92 x10^6/uL (3.50-5.40) Hemoglobin 9.0 g/dL (12.0-15.5) 9.0 g/dL (12.0-15.5) Hematocrit 26.6 % (36.0-47.0) 26.5 % (36.0-47.0) Mean Corpuscular Volume 90 fL (79-100) 91 fL (79-100) Mean Corpuscular Hemoglobin 30 pg (25-35) 31 pg (25-35) Mean Corpuscular Hemoglobin Concent 34 g/dL (31-37) 34 g/dL (31-37) Red Cell Distribution Width 14.9 % (11.5-14.5) 15.2 % (11.5-14.5) Platelet Count 212 x10^3/uL (140-400) 196 x10^3/uL (140-400) Neutrophils (%) (Auto) 63 % (31-73) 54 % (31-73) Lymphocytes (%) (Auto) 28 % (24-48) 34 % (24-48) Monocytes (%) (Auto) 7 % (0-9) 7 % (0-9) Eosinophils (%) (Auto) 3 % (0-3) 4 % (0-3) Basophils (%) (Auto) 0 % (0-3) 1 % (0-3) Neutrophils # (Auto) 4.9 x10^3/uL (1.8-7.7) 3.0 x10^3/uL (1.8-7.7) Lymphocytes # (Auto) 2.2 x10^3/uL (1.0-4.8) 1.9 x10^3/uL (1.0-4.8) Monocytes # (Auto) 0.5 x10^3/uL (0.0-1.1) 0.4 x10^3/uL (0.0-1.1) Eosinophils # (Auto) 0.2 x10^3/uL (0.0-0.7) 0.2 x10^3/uL (0.0-0.7) Basophils # (Auto) 0.0 x10^3/uL (0.0-0.2) 0.0 x10^3/uL (0.0-0.2) Sodium Level 143 mmol/L (136-145) 139 mmol/L (136-145) Potassium Level 5.4 mmol/L (3.5-5.1) 5.3 mmol/L (3.5-5.1) Chloride Level 103 mmol/L (98-107) 102 mmol/L (98-107) Carbon Dioxide Level 22 mmol/L (21-32) 20 mmol/L (21-32) Anion Gap 18 (6-14) 17 (6-14) Blood Urea Nitrogen 113 mg/dL (7-20) 122 mg/dL (7-20) Creatinine 12.5 mg/dL (0.6-1.0) 12.6 mg/dL (0.6-1.0) Estimated GFR (Cockcroft-Gault) 3.7 3.6 BUN/Creatinine Ratio 9 (6-20) 10 (6-20) Glucose Level 139 mg/dL (70-99) 114 mg/dL (70-99) Calcium Level 8.6 mg/dL (8.5-10.1) 8.8 mg/dL (8.5-10.1) Magnesium Level 2.3 mg/dL (1.8-2.4) Total Bilirubin 0.3 mg/dL (0.2-1.0) 0.3 mg/dL (0.2-1.0) Aspartate Amino Transf (AST/SGOT) 32 U/L (15-37) 23 U/L (15-37) Alanine Aminotransferase (ALT/SGPT) 26 U/L (14-59) 24 U/L (14-59) Alkaline Phosphatase 199 U/L (46-116) 187 U/L (46-116) Total Protein 7.2 g/dL (6.4-8.2) 6.3 g/dL (6.4-8.2) Albumin 3.0 g/dL (3.4-5.0) 2.9 g/dL (3.4-5.0) Albumin/Globulin Ratio 0.7 (1.0-1.7) 0.9 (1.0-1.7) Laboratory Tests Test 09/04/19 18:49 09/05/19 05:03 White Blood Count 7.8 x10^3/uL (4.0-11.0) 5.5 x10^3/uL (4.0-11.0) Red Blood Count 2.97 x10^6/uL (3.50-5.40) 2.92 x10^6/uL (3.50-5.40) Hemoglobin 9.0 g/dL (12.0-15.5) 9.0 g/dL (12.0-15.5) Hematocrit 26.6 % (36.0-47.0) 26.5 % (36.0-47.0) Mean Corpuscular Volume 90 fL (79-100) 91 fL (79-100) Mean Corpuscular Hemoglobin 30 pg (25-35) 31 pg (25-35) Mean Corpuscular Hemoglobin Concent 34 g/dL (31-37) 34 g/dL (31-37) Red Cell Distribution Width 14.9 % (11.5-14.5) 15.2 % (11.5-14.5) Platelet Count 212 x10^3/uL (140-400) 196 x10^3/uL (140-400) Neutrophils (%) (Auto) 63 % (31-73) 54 % (31-73) Lymphocytes (%) (Auto) 28 % (24-48) 34 % (24-48) Monocytes (%) (Auto) 7 % (0-9) 7 % (0-9) Eosinophils (%) (Auto) 3 % (0-3) 4 % (0-3) Basophils (%) (Auto) 0 % (0-3) 1 % (0-3) Neutrophils # (Auto) 4.9 x10^3/uL (1.8-7.7) 3.0 x10^3/uL (1.8-7.7) Lymphocytes # (Auto) 2.2 x10^3/uL (1.0-4.8) 1.9 x10^3/uL (1.0-4.8) Monocytes # (Auto) 0.5 x10^3/uL (0.0-1.1) 0.4 x10^3/uL (0.0-1.1) Eosinophils # (Auto) 0.2 x10^3/uL (0.0-0.7) 0.2 x10^3/uL (0.0-0.7) Basophils # (Auto) 0.0 x10^3/uL (0.0-0.2) 0.0 x10^3/uL (0.0-0.2) Sodium Level 143 mmol/L (136-145) 139 mmol/L (136-145) Potassium Level 5.4 mmol/L (3.5-5.1) 5.3 mmol/L (3.5-5.1) Chloride Level 103 mmol/L (98-107) 102 mmol/L (98-107) Carbon Dioxide Level 22 mmol/L (21-32) 20 mmol/L (21-32) Anion Gap 18 (6-14) 17 (6-14) Blood Urea Nitrogen 113 mg/dL (7-20) 122 mg/dL (7-20) Creatinine 12.5 mg/dL (0.6-1.0) 12.6 mg/dL (0.6-1.0) Estimated GFR (Cockcroft-Gault) 3.7 3.6 BUN/Creatinine Ratio 9 (6-20) 10 (6-20) Glucose Level 139 mg/dL (70-99) 114 mg/dL (70-99) Calcium Level 8.6 mg/dL (8.5-10.1) 8.8 mg/dL (8.5-10.1) Magnesium Level 2.3 mg/dL (1.8-2.4) Total Bilirubin 0.3 mg/dL (0.2-1.0) 0.3 mg/dL (0.2-1.0) Aspartate Amino Transf (AST/SGOT) 32 U/L (15-37) 23 U/L (15-37) Alanine Aminotransferase (ALT/SGPT) 26 U/L (14-59) 24 U/L (14-59) Alkaline Phosphatase 199 U/L (46-116) 187 U/L (46-116) Total Protein 7.2 g/dL (6.4-8.2) 6.3 g/dL (6.4-8.2) Albumin 3.0 g/dL (3.4-5.0) 2.9 g/dL (3.4-5.0) Albumin/Globulin Ratio 0.7 (1.0-1.7) 0.9 (1.0-1.7) Review All relevant outside records, renal labs, imaging studies, telemetry/EKG's were reviewed. Images Images COMPARISON: 05/12/2019 TECHNIQUE: Single portable radiograph of the chest FINDINGS: Mild cardiomegaly. Mild prominent bilateral interstitial lung markings likely mild infiltrates or congestive changes. The costophrenic sulci are clear and well demarcated. IMPRESSION: Mild prominent bilateral interstitial lung markings likely mild infiltrates or congestive changes. FELICIA SHEFFIELD MD Sep 05, 2019 11:32
[2019-09-05] MEDS ORDERED: 0.9 % SODIUM CHLORIDE 10 ML DISP.SYRIN. IV PRN (12:00)
[2019-09-05] MEDS ORDERED: ACETAMINOPHEN 325 MG TABLET. PO PRN (12:00)
[2019-09-05] MEDS ORDERED: DOCUSATE SODIUM 100 MG CAPSULE. PO PRN (12:00)
[2019-09-05] MEDS: IPRATRPIUM/ALBUTEROL 0.5/2.5MG 3 ML NEBU. NEB SCH ×3 (12:00→19:20)
[2019-09-05] MEDS ORDERED: ONDANSETRON PF 4 MG/2 ML VIAL. IV PRN (12:00)
[2019-09-05] MEDS ORDERED: guaiFENesin ORAL 200 MG/10 ML LIQUID. PO PRN (12:00)
--- NOTE | 2019-09-05 12:06 | EKG ---
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
[2019-09-05] MEDS ORDERED: ALPRAZolam 0.25 MG TABLET PO PRN (12:15)
[2019-09-05] MEDS: HYDROcodone/APAP 10/325 1 TAB TABLET PO PRN ×2 (13:56→21:30)
[2019-09-05] MEDS: NON FORMULARY ITEM (Sucroferric Oxyhydroxide (Velphoro) 500 MG) PO SCH ×2 (14:00→21:00)
[2019-09-05 15:23] VITALS: BP 168/83
[2019-09-05] MEDS: cloNIDine HCL 0.3 MG TABLET PO SCH ×2 (15:52→21:00)
[2019-09-05] MEDS: FOLIC/VIT B COMP W-C (RENAL) TABLET. PO SCH (15:52)
[2019-09-05] MEDS: ASPIRIN ENTERIC COATED 81 MG TABLET.DR. PO SCH (15:52)
[2019-09-05] MEDS: amLODIPine BESYLATE 10 MG TABLET PO SCH (15:52)
[2019-09-05] MEDS: diazePAM 5 MG TABLET PO SCH (15:53)
[2019-09-05] MEDS: CITALOPRAM 20 MG TABLET. PO SCH (15:53)
[2019-09-05] MEDS: HEPARIN for SUB-Q USE 5,000 UNIT/ML VIAL. SQ SCH ×2 (16:06→21:41)
[2019-09-05 19:28] VITALS: BP 133/65
[2019-09-05] MEDS ORDERED: DARBEPOETIN ALFA 60 MCG/0.3 ML DISP.SYRIN. SQ SCH (21:00)
[2019-09-05] MEDS: DONEPEZIL HCL 5 MG TABLET. PO SCH (21:32)
[2019-09-05] MEDS: DOXAZOSIN MESYLATE 4 MG TABLET. PO SCH (21:32)
[2019-09-05] MEDS: MIRTAZAPINE 15 MG TABLET PO SCH (21:33)
[2019-09-05] MEDS: ATORVASTATIN CALCIUM 40 MG TABLET. PO SCH (21:33)
[2019-09-05 23:26] VITALS: BP 126/67
[2019-09-06] VITALS (7 sets, daily range): BP systolic 101–135; BP diastolic 57–71
[2019-09-06] MEDS: IPRATRPIUM/ALBUTEROL 0.5/2.5MG 3 ML NEBU. NEB SCH ×6 (00:27→20:48)
[2019-09-06 04:19] LABS: BASO % 0 % (0-3); EOS # 0.2 x10^3/uL (0.0-0.7); EOS % 3 % (0-3); HEMOGLOBIN 9.5 g/dL (12.0-15.5); LYMPH # 2.3 x10^3/uL (1.0-4.8); LYMPH % 41 % (24-48); MEAN CORPUSCULAR HEMOGLOBIN 30 pg (25-35); MEAN CORPUSCULAR HGB CONC 34 g/dL (31-37); MEAN CORPUSCULAR VOLUME 89 fL (79-100); MONO # 0.4 x10^3/uL (0.0-1.1); MONO % 7 % (0-9); NEUT # 2.8 x10^3/uL (1.8-7.7); NEUT % 50 % (31-73); PLATELET COUNT 214 x10^3/uL (140-400); RED BLOOD COUNT 3.14 x10^6/uL (3.50-5.40); WHITE BLOOD COUNT 5.7 x10^3/uL (4.0-11.0)
[2019-09-06 04:39] LABS: ALBUMIN 2.8 g/dL (3.4-5.0); CALCIUM 8.4 mg/dL (8.5-10.1); CREATININE 6.7 mg/dL (0.6-1.0); GFR 7.5; PHOSPHORUS 5.7 mg/dL (2.6-4.7)
[2019-09-06] MEDS: HEPARIN for SUB-Q USE 5,000 UNIT/ML VIAL. SQ SCH ×3 (06:14→23:09)
[2019-09-06] MEDS: HYDROcodone/APAP 10/325 1 TAB TABLET PO PRN ×3 (06:33→23:13)
[2019-09-06] MEDS: cloNIDine HCL 0.3 MG TABLET PO SCH ×2 (09:00→23:12)
[2019-09-06] MEDS: NON FORMULARY ITEM (Sucroferric Oxyhydroxide (Velphoro) 500 MG) PO SCH ×3 (09:00→21:00)
[2019-09-06] MEDS: amLODIPine BESYLATE 10 MG TABLET PO SCH (09:00)
--- NOTE | 2019-09-06 10:58 | PDOC ---
PROGRESS NOTES History of Present Illness History of Present Illness VTE Prophylaxis Ordered VTE Prophylaxis Devices: No VTE Pharmacological Prophylaxi: Yes Assessment/Plan Assessment/Plan Impression: Weakness gait instability with recent fall Hyperkalemia ESRD (end stage renal disease) on dialysis Pulmonary edema Mild aortic valvular stenosis.Mild to moderate aortic regurgitation. ECHO 03/23 HYPERTENSION DEPRESSION ADMITTED nephrology consult dialysis today PT/OT TELE FOLLOW K DVT PROPHYLAXIS, HEPARIN 28 min pt exam, chart review, > 50% of time spent with exam, chart review, pt care coordination Vitals Vitals Vital Signs Date Time Temp Pulse Resp B/P (MAP) Pulse Ox O2 Delivery O2 Flow Rate FiO2 09/06/19 09:11 Room Air 09/06/19 07:55 99 09/06/19 07:25 97.5 61 18 101/57 (72) 97.5 Physical Exam General: Alert, Oriented X3, Cooperative, No acute distress Lungs: Clear Abdomen: Normal bowel sounds, Soft, No tenderness Extremities: No clubbing, No cyanosis Skin: No breakdown Labs LABS Laboratory Tests Test 09/06/19 03:30 White Blood Count 5.7 x10^3/uL (4.0-11.0) Red Blood Count 3.14 x10^6/uL (3.50-5.40) Hemoglobin 9.5 g/dL (12.0-15.5) Hematocrit 28.0 % (36.0-47.0) Mean Corpuscular Volume 89 fL (79-100) Mean Corpuscular Hemoglobin 30 pg (25-35) Mean Corpuscular Hemoglobin Concent 34 g/dL (31-37) Red Cell Distribution Width 15.0 % (11.5-14.5) Platelet Count 214 x10^3/uL (140-400) Neutrophils (%) (Auto) 50 % (31-73) Lymphocytes (%) (Auto) 41 % (24-48) Monocytes (%) (Auto) 7 % (0-9) Eosinophils (%) (Auto) 3 % (0-3) Basophils (%) (Auto) 0 % (0-3) Neutrophils # (Auto) 2.8 x10^3/uL (1.8-7.7) Lymphocytes # (Auto) 2.3 x10^3/uL (1.0-4.8) Monocytes # (Auto) 0.4 x10^3/uL (0.0-1.1) Eosinophils # (Auto) 0.2 x10^3/uL (0.0-0.7) Basophils # (Auto) 0.0 x10^3/uL (0.0-0.2) Sodium Level 137 mmol/L (136-145) Potassium Level 4.0 mmol/L (3.5-5.1) Chloride Level 97 mmol/L (98-107) Carbon Dioxide Level 30 mmol/L (21-32) Anion Gap 10 (6-14) Blood Urea Nitrogen 49 mg/dL (7-20) Creatinine 6.7 mg/dL (0.6-1.0) Estimated GFR (Cockcroft-Gault) 7.5 Glucose Level 100 mg/dL (70-99) Calcium Level 8.4 mg/dL (8.5-10.1) Phosphorus Level 5.7 mg/dL (2.6-4.7) Magnesium Level 2.1 mg/dL (1.8-2.4) Albumin 2.8 g/dL (3.4-5.0) Assessment and Plan Assessmemt and Plan Problems Medical Problems: (1) Hyperkalemia Status: Acute (2) Pulmonary edema Status: Acute (3) Weakness Status: Acute Comment Review of Relevant I have reviewed the following items ross (where applicable) has been applied. Labs Laboratory Tests Test 09/04/19 18:49 09/05/19 05:03 09/06/19 03:30 White Blood Count 7.8 x10^3/uL (4.0-11.0) 5.5 x10^3/uL (4.0-11.0) 5.7 x10^3/uL (4.0-11.0) Red Blood Count 2.97 x10^6/uL (3.50-5.40) 2.92 x10^6/uL (3.50-5.40) 3.14 x10^6/uL (3.50-5.40) Hemoglobin 9.0 g/dL (12.0-15.5) 9.0 g/dL (12.0-15.5) 9.5 g/dL (12.0-15.5) Hematocrit 26.6 % (36.0-47.0) 26.5 % (36.0-47.0) 28.0 % (36.0-47.0) Mean Corpuscular Volume 90 fL (79-100) 91 fL (79-100) 89 fL (79-100) Mean Corpuscular Hemoglobin 30 pg (25-35) 31 pg (25-35) 30 pg (25-35) Mean Corpuscular Hemoglobin Concent 34 g/dL (31-37) 34 g/dL (31-37) 34 g/dL (31-37) Red Cell Distribution Width 14.9 % (11.5-14.5) 15.2 % (11.5-14.5) 15.0 % (11.5-14.5) Platelet Count 212 x10^3/uL (140-400) 196 x10^3/uL (140-400) 214 x10^3/uL (140-400) Neutrophils (%) (Auto) 63 % (31-73) 54 % (31-73) 50 % (31-73) Lymphocytes (%) (Auto) 28 % (24-48) 34 % (24-48) 41 % (24-48) Monocytes (%) (Auto) 7 % (0-9) 7 % (0-9) 7 % (0-9) Eosinophils (%) (Auto) 3 % (0-3) 4 % (0-3) 3 % (0-3) Basophils (%) (Auto) 0 % (0-3) 1 % (0-3) 0 % (0-3) Neutrophils # (Auto) 4.9 x10^3/uL (1.8-7.7) 3.0 x10^3/uL (1.8-7.7) 2.8 x10^3/uL (1.8-7.7) Lymphocytes # (Auto) 2.2 x10^3/uL (1.0-4.8) 1.9 x10^3/uL (1.0-4.8) 2.3 x10^3/uL (1.0-4.8) Monocytes # (Auto) 0.5 x10^3/uL (0.0-1.1) 0.4 x10^3/uL (0.0-1.1) 0.4 x10^3/uL (0.0-1.1) Eosinophils # (Auto) 0.2 x10^3/uL (0.0-0.7) 0.2 x10^3/uL (0.0-0.7) 0.2 x10^3/uL (0.0-0.7) Basophils # (Auto) 0.0 x10^3/uL (0.0-0.2) 0.0 x10^3/uL (0.0-0.2) 0.0 x10^3/uL (0.0-0.2) Sodium Level 143 mmol/L (136-145) 139 mmol/L (136-145) 137 mmol/L (136-145) Potassium Level 5.4 mmol/L (3.5-5.1) 5.3 mmol/L (3.5-5.1) 4.0 mmol/L (3.5-5.1) Chloride Level 103 mmol/L (98-107) 102 mmol/L (98-107) 97 mmol/L (98-107) Carbon Dioxide Level 22 mmol/L (21-32) 20 mmol/L (21-32) 30 mmol/L (21-32) Anion Gap 18 (6-14) 17 (6-14) 10 (6-14) Blood Urea Nitrogen 113 mg/dL (7-20) 122 mg/dL (7-20) 49 mg/dL (7-20) Creatinine 12.5 mg/dL (0.6-1.0) 12.6 mg/dL (0.6-1.0) 6.7 mg/dL (0.6-1.0) Estimated GFR (Cockcroft-Gault) 3.7 3.6 7.5 BUN/Creatinine Ratio 9 (6-20) 10 (6-20) Glucose Level 139 mg/dL (70-99) 114 mg/dL (70-99) 100 mg/dL (70-99) Calcium Level 8.6 mg/dL (8.5-10.1) 8.8 mg/dL (8.5-10.1) 8.4 mg/dL (8.5-10.1) Magnesium Level 2.3 mg/dL (1.8-2.4) 2.1 mg/dL (1.8-2.4) Total Bilirubin 0.3 mg/dL (0.2-1.0) 0.3 mg/dL (0.2-1.0) Aspartate Amino Transf (AST/SGOT) 32 U/L (15-37) 23 U/L (15-37) Alanine Aminotransferase (ALT/SGPT) 26 U/L (14-59) 24 U/L (14-59) Alkaline Phosphatase 199 U/L (46-116) 187 U/L (46-116) Total Protein 7.2 g/dL (6.4-8.2) 6.3 g/dL (6.4-8.2) Albumin 3.0 g/dL (3.4-5.0) 2.9 g/dL (3.4-5.0) 2.8 g/dL (3.4-5.0) Albumin/Globulin Ratio 0.7 (1.0-1.7) 0.9 (1.0-1.7) Phosphorus Level 5.7 mg/dL (2.6-4.7) Laboratory Tests Test 09/06/19 03:30 White Blood Count 5.7 x10^3/uL (4.0-11.0) Red Blood Count 3.14 x10^6/uL (3.50-5.40) Hemoglobin 9.5 g/dL (12.0-15.5) Hematocrit 28.0 % (36.0-47.0) Mean Corpuscular Volume 89 fL (79-100) Mean Corpuscular Hemoglobin 30 pg (25-35) Mean Corpuscular Hemoglobin Concent 34 g/dL (31-37) Red Cell Distribution Width 15.0 % (11.5-14.5) Platelet Count 214 x10^3/uL (140-400) Neutrophils (%) (Auto) 50 % (31-73) Lymphocytes (%) (Auto) 41 % (24-48) Monocytes (%) (Auto) 7 % (0-9) Eosinophils (%) (Auto) 3 % (0-3) Basophils (%) (Auto) 0 % (0-3) Neutrophils # (Auto) 2.8 x10^3/uL (1.8-7.7) Lymphocytes # (Auto) 2.3 x10^3/uL (1.0-4.8) Monocytes # (Auto) 0.4 x10^3/uL (0.0-1.1) Eosinophils # (Auto) 0.2 x10^3/uL (0.0-0.7) Basophils # (Auto) 0.0 x10^3/uL (0.0-0.2) Sodium Level 137 mmol/L (136-145) Potassium Level 4.0 mmol/L (3.5-5.1) Chloride Level 97 mmol/L (98-107) Carbon Dioxide Level 30 mmol/L (21-32) Anion Gap 10 (6-14) Blood Urea Nitrogen 49 mg/dL (7-20) Creatinine 6.7 mg/dL (0.6-1.0) Estimated GFR (Cockcroft-Gault) 7.5 Glucose Level 100 mg/dL (70-99) Calcium Level 8.4 mg/dL (8.5-10.1) Phosphorus Level 5.7 mg/dL (2.6-4.7) Magnesium Level 2.1 mg/dL (1.8-2.4) Albumin 2.8 g/dL (3.4-5.0) Medications Current Medications Calcium Gluconate (Calcium Gluconate) 1,000 mg 1X ONCE IVP Last administered on 09/04/19at 21:44; Start 09/04/19 at 22:00; Stop 09/04/19 at 22:01; Status DC Dextrose (Dextrose 50%-Water Syringe) 25 gm 1X ONCE IV Last administered on 09/04/19at 21:44; Start 09/04/19 at 22:00; Stop 09/04/19 at 22:01; Status DC Insulin Human Regular (HumuLIN R VIAL) 10 unit 1X ONCE IV Last administered on 09/04/19at 21:44; Start 09/04/19 at 22:00; Stop 09/04/19 at 22:01; Status DC Ondansetron HCl (Zofran) 4 mg PRN Q8HRS PRN IV NAUSEA/VOMITING 1ST CHOICE; Start 09/04/19 at 22:45; Stop 09/05/19 at 12:33; Status DC Acetaminophen (Tylenol) 650 mg PRN Q4HRS PRN PO FEVER; Start 09/04/19 at 22:45; Stop 09/05/19 at 12:03; Status DC Sodium Chloride 1,000 ml @ 1,000 mls/hr Q1H PRN IV hypotension; Start 09/05/19 at 10:16; Stop 09/05/19 at 16:15; Status DC Sodium Chloride 1,000 ml @ 400 mls/hr Q2H30M PRN IV PATENCY; Start 09/05/19 at 10:16; Stop 09/05/19 at 22:15; Status DC Info (PHARMACY MONITORING -- do not chart) 1 each PRN DAILY PRN MC SEE COMMENTS; Start 09/05/19 at 10:30; Status UNV Info (PHARMACY MONITORING -- do not chart) 1 each PRN DAILY PRN MC SEE COMMENTS; Start 09/05/19 at 10:30 Lidocaine HCl (Lidocaine 1% 20ml Vial) 20 ml 1X ONCE ID Last administered on 09/05/19at 10:30; Start 09/05/19 at 10:30; Stop 09/05/19 at 10:31; Status DC Lidocaine HCl (Xylocaine-Mpf 1% 2ml Vial) 2 ml STK-MED ONCE .ROUTE ; Start 09/05/19 at 10:22; Stop 09/05/19 at 10:22; Status DC Darbepoetin Stu (ARANESP for DIALYSIS PTS) 60 mcg WEEKLYHS SQ Last administered on 09/05/19at 21:31; Start 09/05/19 at 21:00 Sodium Chloride (Normal Saline Flush) 3 ml QSHIFT PRN IV AFTER MEDS AND BLOOD DRAWS; Start 09/05/19 at 12:00 Ondansetron HCl (Zofran) 4 mg PRN Q4HRS PRN IV NAUSEA/VOMITING; Start 09/05/19 at 12:00 Acetaminophen (Tylenol) 650 mg PRN Q4HRS PRN PO TEMP OVER 100.4F OR MILD PAIN; Start 09/05/19 at 12:00 Clonidine HCl (Catapres) 0.1 mg PRN Q6HRS PRN PO SBP>160 OR DBP>90; Start 09/05/19 at 12:00 Docusate Sodium (Colace) 100 mg PRN BID PRN PO CONSTIPATION; Start 09/05/19 at 12:00 Albuterol/ Ipratropium (Duoneb) 3 ml Q4H NEB Last administered on 09/06/19at 09:05; Start 09/05/19 at 12:00 Guaifenesin (Robitussin) 200 mg PRN Q4HRS PRN PO COUGH; Start 09/05/19 at 12:00 Heparin Sodium (Porcine) (Heparin Sodium) 5,000 unit Q8HRS SQ Last administered on 09/06/19at 06:14; Start 09/05/19 at 12:00 Alprazolam (Xanax) 0.25 mg PRN BID PRN PO ANXIETY / AGITATION; Start 09/05/19 at 12:15; Status Cancel Amlodipine Besylate (Norvasc) 10 mg DAILY PO Last administered on 09/05/19at 15:52; Start 09/05/19 at 13:00 Aspirin (Ecotrin) 81 mg DAILYWBKFT PO Last administered on 09/05/19 15:52; Start 09/05/19 at 12:15 Atorvastatin Calcium (Lipitor) 40 mg QHS PO Last administered on 09/05/19 21:33; Start 09/05/19 at 21:00 Clonidine HCl (Catapres) 0.3 mg BID PO Last administered on 09/05/19at 15:52; Start 09/05/19 at 12:15 Diazepam (Valium) 5 mg DAILY PO Last administered on 09/05/19at 15:53; Start 09/05/19 at 12:15 Donepezil HCl (Aricept) 5 mg HS PO Last administered on 09/05/19at 21:32; Start 09/05/19 at 21:00 Vitamin B Complex/ Vitamin C (Jolie-Rossana) 1 tab DAILY PO Last administered on 09/05/19at 15:52; Start 09/05/19 at 12:15 Hydralazine HCl (Apresoline) 50 mg BID PO Last administered on 09/05/19 21:33; Start 09/05/19 at 12:15 Acetaminophen/ Hydrocodone Bitart (Lortab 10/325) 1 tab PRN Q6HRS PRN PO MODERATE PAIN Last administered on 09/06/19 06:33; Start 09/05/19 at 12:15 Mirtazapine (Remeron) 30 mg QHS PO Last administered on 09/05/19 21:33; Start 09/05/19 at 21:00 Doxazosin Mesylate (Cardura) 8 mg QHS PO Last administered on 09/05/19at 21:32; Start 09/05/19 at 21:00 Citalopram Hydrobromide (CeleXA) 40 mg DAILY PO Last administered on 09/05/19at 15:53; Start 09/05/19 at 13:00 Non-Formulary Medication (Sucroferric Oxyhydroxide (Velphoro)) 500 mg TID PO ; Start 09/05/19 at 14:00; Status UNV Active Scripts Active Mirtazapine 15 Mg Tablet 30 Mg PO QHS 30 Days Aspirin Ec (Aspirin) 81 Mg Tablet.dr 81 Mg PO DAILYWBKFT 30 Days Alprazolam 0.25 Mg Tablet 0.25 Mg PO PRN BID PRN 30 Days Jolie-Rossana Tablet (Folic Acid/Vitamin B Comp W-C) 0.8 Mg Tablet 1 Tab PO DAILY 30 Days Stanley 10-325 Tablet (Acetaminophen/Hydrocodone Bitart) 1 Each Tablet 1 Tab PO PRN Q6HRS PRN 30 Days Atorvastatin Calcium 40 Mg Tablet 40 Mg PO QHS Aricept (Donepezil Hcl) 5 Mg Tablet 5 Mg PO HS 30 Days Reported Lexapro (Escitalopram Oxalate) 20 Mg Tablet 1 Tab PO DAILY Clonidine Hcl 0.3 Mg Tablet 0.3 Mg PO BID Hydralazine Hcl 50 Mg Tablet 1 Tab PO BID Doxazosin Mesylate 8 Mg Tablet 1 Tab PO HS Diazepam 5 Mg Tablet 5 Mg PO DAILY Amlodipine Besylate 10 Mg Tablet 10 Mg PO DAILY Velphoro (Sucroferric Oxyhydroxide) 500 Mg Tab.chew 500 Mg PO TID Vitals/I & O Vital Sign - Last 24 Hours 09/05/19 09/05/19 09/05/19 09/05/19 13:56 14:58 15:23 15:48 Temp 98.1 98.1 Pulse 111 Resp 16 18 B/P (MAP) 168/83 (111) Pulse Ox 99 99 98 99 O2 Delivery Room Air Room Air Room Air Room Air 09/05/19 09/05/19 09/05/19 09/05/19 15:52 15:52 15:53 19:21 Pulse 111 111 111 B/P (MAP) 168/83 168/83 168/83 Pulse Ox 98 O2 Delivery Room Air 2/08/2409/05/19 09/05/19 09/05/19 19:28 19:45 21:00 21:30 Temp 98.9 98.9 Pulse 67 67 Resp 16 18 B/P (MAP) 133/65 (87) 133/65 Pulse Ox 93 93 O2 Delivery Room Air Room Air Room Air 09/05/19 09/05/19 09/05/19 09/05/19 21:32 21:33 22:30 23:26 Temp 98.5 98.5 Pulse 67 67 70 Resp 18 16 B/P (MAP) 133/65 133/65 126/67 (86) Pulse Ox 93 94 O2 Delivery Room Air Room Air 09/06/19 09/06/19 09/06/19 09/06/19 03:39 04:17 06:33 07:25 Temp 98.5 97.5 98.5 97.5 Pulse 59 61 Resp 16 16 18 B/P (MAP) 131/71 (91) 101/57 (72) Pulse Ox 99 99 98 O2 Delivery Room Air Room Air Room Air Room Air 09/06/19 09/06/19 07:55 09:11 Pulse Ox 99 O2 Delivery Room Air Room Air Intake and Output 09/05/19 09/05/19 09/06/19 15:00 23:00 07:00 Intake Total 180 ml 100 ml 600 ml Balance 180 ml 100 ml 600 ml ANTHONY VELASQUEZ MD Sep 06, 2019 10:58
[2019-09-06] MEDS: CITALOPRAM 20 MG TABLET. PO SCH (12:41)
[2019-09-06] MEDS: FOLIC/VIT B COMP W-C (RENAL) TABLET. PO SCH (12:41)
[2019-09-06] MEDS: diazePAM 5 MG TABLET PO SCH (12:41)
[2019-09-06] MEDS: ASPIRIN ENTERIC COATED 81 MG TABLET.DR. PO SCH (12:44)
[2019-09-06] MEDS: cloNIDine HCL 0.1 MG TABLET PO PRN (23:01)
[2019-09-06] MEDS: DONEPEZIL HCL 5 MG TABLET. PO SCH (23:02)
[2019-09-06] MEDS: ATORVASTATIN CALCIUM 40 MG TABLET. PO SCH (23:02)
[2019-09-06] MEDS: MIRTAZAPINE 15 MG TABLET PO SCH (23:02)
[2019-09-06] MEDS: DOXAZOSIN MESYLATE 4 MG TABLET. PO SCH (23:12)
[2019-09-07] MEDS: IPRATRPIUM/ALBUTEROL 0.5/2.5MG 3 ML NEBU. NEB SCH ×5 (00:05→16:36)
[2019-09-07 03:35] VITALS: BP 139/77
[2019-09-07] MEDS: HEPARIN for SUB-Q USE 5,000 UNIT/ML VIAL. SQ SCH ×2 (06:27→16:45)
[2019-09-07 07:59] VITALS: BP 127/78
[2019-09-07 08:09] LABS: ALBUMIN 2.8 g/dL (3.4-5.0); CREATININE 8.8 mg/dL (0.6-1.0); GFR 5.5; PHOSPHORUS 7.6 mg/dL (2.6-4.7); POTASSIUM 4.8 mmol/L (3.5-5.1)
--- NOTE | 2019-09-07 08:17 | PDOC ---
PROGRESS NOTES Chief Complaint Chief Complaint A/P: Weakness gait instability with recent fall Hyperkalemia ESRD (end stage renal disease) on dialysis Pulmonary edema Mild aortic valvular stenosis Mild to moderate aortic regurgitation. ECHO 05/23 HYPERTENSION DEPRESSION ADMITTED Nephrology consult dialysis today PT/OT TELE FOLLOW K DVT PROPHYLAXIS, HEPARIN 28 min pt exam, chart review, > 50% of time spent with exam, chart review, pt care coordination History of Present Illness History of Present Illness Ms Glover is a 64-year-old -[place] female w/ PMHx end-stage renal disease on HD, HTN. She has missed approximately 1 week of dialysis since she fell last week. She has developed progressive weakness and hence presented to the ER for further evaluation of the same. She lives with family member. Chest x-ray did show mild pulmonary edema. She was not noted to be hypoxemic. She was noted to have marginal potassium and was admitted the hospital for further evaluation and workup of her weakness. She has improved since getting dialysis, she feels stronger today. Had been refusing to work with PT. SOB improved. No CP. Vitals Vitals Vital Signs Date Time Temp Pulse Resp B/P (MAP) Pulse Ox O2 Delivery O2 Flow Rate FiO2 09/07/19 08:07 97 Room Air 09/07/19 07:59 98.2 60 18 127/78 (94) 98.2 Physical Exam General: Alert, Oriented X3, Cooperative, No acute distress Lungs: Clear Abdomen: Normal bowel sounds, Soft, No tenderness Extremities: No clubbing, No cyanosis Skin: No breakdown Labs LABS Laboratory Tests Test 09/07/19 05:50 Sodium Level 142 mmol/L (136-145) Potassium Level 4.8 mmol/L (3.5-5.1) Chloride Level 99 mmol/L (98-107) Carbon Dioxide Level 27 mmol/L (21-32) Anion Gap 16 (6-14) Blood Urea Nitrogen 67 mg/dL (7-20) Creatinine 8.8 mg/dL (0.6-1.0) Estimated GFR (Cockcroft-Gault) 5.5 Glucose Level 70 mg/dL (70-99) Calcium Level 8.0 mg/dL (8.5-10.1) Phosphorus Level 7.6 mg/dL (2.6-4.7) Albumin 2.8 g/dL (3.4-5.0) Assessment and Plan Assessmemt and Plan Problems Medical Problems: (1) Hyperkalemia Status: Acute (2) Pulmonary edema Status: Acute (3) Weakness Status: Acute Comment Review of Relevant I have reviewed the following items ross (where applicable) has been applied. Labs Laboratory Tests Test 09/06/19 03:30 09/07/19 05:50 White Blood Count 5.7 x10^3/uL (4.0-11.0) Red Blood Count 3.14 x10^6/uL (3.50-5.40) Hemoglobin 9.5 g/dL (12.0-15.5) Hematocrit 28.0 % (36.0-47.0) Mean Corpuscular Volume 89 fL (79-100) Mean Corpuscular Hemoglobin 30 pg (25-35) Mean Corpuscular Hemoglobin Concent 34 g/dL (31-37) Red Cell Distribution Width 15.0 % (11.5-14.5) Platelet Count 214 x10^3/uL (140-400) Neutrophils (%) (Auto) 50 % (31-73) Lymphocytes (%) (Auto) 41 % (24-48) Monocytes (%) (Auto) 7 % (0-9) Eosinophils (%) (Auto) 3 % (0-3) Basophils (%) (Auto) 0 % (0-3) Neutrophils # (Auto) 2.8 x10^3/uL (1.8-7.7) Lymphocytes # (Auto) 2.3 x10^3/uL (1.0-4.8) Monocytes # (Auto) 0.4 x10^3/uL (0.0-1.1) Eosinophils # (Auto) 0.2 x10^3/uL (0.0-0.7) Basophils # (Auto) 0.0 x10^3/uL (0.0-0.2) Sodium Level 137 mmol/L (136-145) 142 mmol/L (136-145) Potassium Level 4.0 mmol/L (3.5-5.1) 4.8 mmol/L (3.5-5.1) Chloride Level 97 mmol/L (98-107) 99 mmol/L (98-107) Carbon Dioxide Level 30 mmol/L (21-32) 27 mmol/L (21-32) Anion Gap 10 (6-14) 16 (6-14) Blood Urea Nitrogen 49 mg/dL (7-20) 67 mg/dL (7-20) Creatinine 6.7 mg/dL (0.6-1.0) 8.8 mg/dL (0.6-1.0) Estimated GFR (Cockcroft-Gault) 7.5 5.5 Glucose Level 100 mg/dL (70-99) 70 mg/dL (70-99) Calcium Level 8.4 mg/dL (8.5-10.1) 8.0 mg/dL (8.5-10.1) Phosphorus Level 5.7 mg/dL (2.6-4.7) 7.6 mg/dL (2.6-4.7) Magnesium Level 2.1 mg/dL (1.8-2.4) Albumin 2.8 g/dL (3.4-5.0) 2.8 g/dL (3.4-5.0) Laboratory Tests Test 09/07/19 05:50 Sodium Level 142 mmol/L (136-145) Potassium Level 4.8 mmol/L (3.5-5.1) Chloride Level 99 mmol/L (98-107) Carbon Dioxide Level 27 mmol/L (21-32) Anion Gap 16 (6-14) Blood Urea Nitrogen 67 mg/dL (7-20) Creatinine 8.8 mg/dL (0.6-1.0) Estimated GFR (Cockcroft-Gault) 5.5 Glucose Level 70 mg/dL (70-99) Calcium Level 8.0 mg/dL (8.5-10.1) Phosphorus Level 7.6 mg/dL (2.6-4.7) Albumin 2.8 g/dL (3.4-5.0) Microbiology 09/05/19 Blood Culture - Preliminary, Resulted NO GROWTH AFTER 1 DAY Medications Current Medications Calcium Gluconate (Calcium Gluconate) 1,000 mg 1X ONCE IVP Last administered on 09/04/19at 21:44; Start 09/04/19 at 22:00; Stop 09/04/19 at 22:01; Status DC Dextrose (Dextrose 50%-Water Syringe) 25 gm 1X ONCE IV Last administered on 09/04/19at 21:44; Start 09/04/19 at 22:00; Stop 09/04/19 at 22:01; Status DC Insulin Human Regular (HumuLIN R VIAL) 10 unit 1X ONCE IV Last administered on 09/04/19at 21:44; Start 09/04/19 at 22:00; Stop 09/04/19 at 22:01; Status DC Ondansetron HCl (Zofran) 4 mg PRN Q8HRS PRN IV NAUSEA/VOMITING 1ST CHOICE; Start 09/04/19 at 22:45; Stop 09/05/19 at 12:33; Status DC Acetaminophen (Tylenol) 650 mg PRN Q4HRS PRN PO FEVER; Start 09/04/19 at 22:45; Stop 09/05/19 at 12:03; Status DC Sodium Chloride 1,000 ml @ 1,000 mls/hr Q1H PRN IV hypotension; Start 09/05/19 at 10:16; Stop 09/05/19 at 16:15; Status DC Sodium Chloride 1,000 ml @ 400 mls/hr Q2H30M PRN IV PATENCY; Start 09/05/19 at 10:16; Stop 09/05/19 at 22:15; Status DC Info (PHARMACY MONITORING -- do not chart) 1 each PRN DAILY PRN MC SEE COMMENTS; Start 09/05/19 at 10:30; Status UNV Info (PHARMACY MONITORING -- do not chart) 1 each PRN DAILY PRN MC SEE COMMENTS; Start 09/05/19 at 10:30 Lidocaine HCl (Lidocaine 1% 20ml Vial) 20 ml 1X ONCE ID Last administered on 09/05/19at 10:30; Start 09/05/19 at 10:30; Stop 09/05/19 at 10:31; Status DC Lidocaine HCl (Xylocaine-Mpf 1% 2ml Vial) 2 ml STK-MED ONCE .ROUTE ; Start 09/05/19 at 10:22; Stop 09/05/19 at 10:22; Status DC Darbepoetin Stu (ARANESP for DIALYSIS PTS) 60 mcg WEEKLYHS SQ Last administered on 09/05/19at 21:31; Start 09/05/19 at 21:00 Sodium Chloride (Normal Saline Flush) 3 ml QSHIFT PRN IV AFTER MEDS AND BLOOD DRAWS; Start 09/05/19 at 12:00 Ondansetron HCl (Zofran) 4 mg PRN Q4HRS PRN IV NAUSEA/VOMITING; Start 09/05/19 at 12:00 Acetaminophen (Tylenol) 650 mg PRN Q4HRS PRN PO TEMP OVER 100.4F OR MILD PAIN; Start 09/05/19 at 12:00 Clonidine HCl (Catapres) 0.1 mg PRN Q6HRS PRN PO SBP>160 OR DBP>90 Last administered on 09/06/19 23:01; Start 09/05/19 at 12:00 Docusate Sodium (Colace) 100 mg PRN BID PRN PO CONSTIPATION; Start 09/05/19 at 12:00 Albuterol/ Ipratropium (Duoneb) 3 ml Q4H NEB Last administered on 09/07/19 08:07; Start 09/05/19 at 12:00 Guaifenesin (Robitussin) 200 mg PRN Q4HRS PRN PO COUGH; Start 09/05/19 at 12:00 Heparin Sodium (Porcine) (Heparin Sodium) 5,000 unit Q8HRS SQ Last administered on 09/07/19 06:27; Start 09/05/19 at 12:00 Alprazolam (Xanax) 0.25 mg PRN BID PRN PO ANXIETY / AGITATION; Start 09/05/19 at 12:15; Status Cancel Amlodipine Besylate (Norvasc) 10 mg DAILY PO Last administered on 09/05/19at 15:52; Start 09/05/19 at 13:00 Aspirin (Ecotrin) 81 mg DAILYWBKFT PO Last administered on 09/06/19 12:44; Start 09/05/19 at 12:15 Atorvastatin Calcium (Lipitor) 40 mg QHS PO Last administered on 09/06/19 23:02; Start 09/05/19 at 21:00 Clonidine HCl (Catapres) 0.3 mg BID PO Last administered on 09/06/19 23:12; Start 09/05/19 at 12:15 Diazepam (Valium) 5 mg DAILY PO Last administered on 09/06/19 12:41; Start 09/05/19 at 12:15 Donepezil HCl (Aricept) 5 mg HS PO Last administered on 09/06/19at 23:02; Start 09/05/19 at 21:00 Vitamin B Complex/ Vitamin C (Jolie-Rossana) 1 tab DAILY PO Last administered on 09/06/19at 12:41; Start 09/05/19 at 12:15 Hydralazine HCl (Apresoline) 50 mg BID PO Last administered on 09/06/19at 23:02; Start 09/05/19 at 12:15 Acetaminophen/ Hydrocodone Bitart (Lortab 10/325) 1 tab PRN Q6HRS PRN PO MODERATE PAIN Last administered on 09/06/19at 23:13; Start 09/05/19 at 12:15 Mirtazapine (Remeron) 30 mg QHS PO Last administered on 09/06/19 23:02; Start 09/05/19 at 21:00 Doxazosin Mesylate (Cardura) 8 mg QHS PO Last administered on 09/06/19at 23:12; Start 09/05/19 at 21:00 Citalopram Hydrobromide (CeleXA) 40 mg DAILY PO Last administered on 09/06/19at 12:41; Start 09/05/19 at 13:00 Non-Formulary Medication (Sucroferric Oxyhydroxide (Velphoro)) 500 mg TID PO ; Start 09/05/19 at 14:00; Status UNV Active Scripts Active Mirtazapine 15 Mg Tablet 30 Mg PO QHS 30 Days Aspirin Ec (Aspirin) 81 Mg Tablet.dr 81 Mg PO [id number] 30 Days Alprazolam 0.25 Mg Tablet 0.25 Mg PO PRN BID PRN 30 Days Jolie-Rossana Tablet (Folic Acid/Vitamin B Comp W-C) 0.8 Mg Tablet 1 Tab PO DAILY 30 Days [place] 10-325 Tablet (Acetaminophen/Hydrocodone Bitart) 1 Each Tablet 1 Tab PO PRN Q6HRS PRN 30 Days Atorvastatin Calcium 40 Mg Tablet 40 Mg PO QHS Aricept (Donepezil Hcl) 5 Mg Tablet 5 Mg PO HS 30 Days Reported Lexapro (Escitalopram Oxalate) 20 Mg Tablet 1 Tab PO DAILY Clonidine Hcl 0.3 Mg Tablet 0.3 Mg PO BID Hydralazine Hcl 50 Mg Tablet 1 Tab PO BID Doxazosin Mesylate 8 Mg Tablet 1 Tab PO HS Diazepam 5 Mg Tablet 5 Mg PO DAILY Amlodipine Besylate 10 Mg Tablet 10 Mg PO DAILY Velphoro (Sucroferric Oxyhydroxide) 500 Mg Tab.chew 500 Mg PO TID Vitals/I & O Vital Sign - Last 24 Hours 09/06/19 09/06/19 09/06/19 09/06/19 09:00 09:00 09:00 09:11 Pulse 63 63 63 B/P (MAP) 109/60 109/60 109/60 O2 Delivery Room Air 09/06/19 09/06/19 09/06/19 09/06/19 10:45 12:43 13:09 13:48 Temp 98.1 98.1 Pulse 63 Resp 20 B/P (MAP) 109/60 (76) Pulse Ox 97 97 97 O2 Delivery Room Air Room Air Room Air Room Air 09/06/19 09/06/19 09/06/19 09/06/19 15:00 16:03 16:51 19:48 Temp 98.4 98.6 98.0 98.4 98.6 98.0 Pulse 63 66 67 Resp 14 18 14 B/P (MAP) 116/66 (83) 114/62 (79) 133/65 (87) Pulse Ox 98 96 100 O2 Delivery Room Air Room Air Room Air Room Air 09/06/19 09/06/19 09/06/19 09/06/19 20:00 20:49 23:01 23:02 Pulse 67 67 B/P (MAP) 133/65 133/65 Pulse Ox 100 O2 Delivery Room Air Room Air 09/06/19 09/06/19 09/06/19 09/06/19 23:05 23:12 23:12 23:13 Temp 98.1 98.1 Pulse 68 67 67 Resp 16 18 B/P (MAP) 135/67 (89) 133/65 133/65 Pulse Ox 97 100 O2 Delivery Room Air Room Air 09/07/19 09/07/19 09/07/19 09/07/19 00:13 00:15 03:35 07:59 Temp 97.9 98.2 97.9 98.2 Pulse 63 60 Resp 18 14 18 B/P (MAP) 139/77 (97) 127/78 (94) Pulse Ox 100 99 97 O2 Delivery Room Air Room Air Room Air Room Air 09/07/19 08:07 Pulse Ox 97 O2 Delivery Room Air Intake and Output 09/06/19 09/06/19 09/07/19 15:00 23:00 07:00 Intake Total 180 ml 540 ml 960 ml Balance 180 ml 540 ml 960 ml ASHIA MELGAR MD Sep 07, 2019 08:16
[2019-09-07] MEDS: NON FORMULARY ITEM (Sucroferric Oxyhydroxide (Velphoro) 500 MG) PO SCH ×2 (09:00→16:45)
[2019-09-07] MEDS: cloNIDine HCL 0.3 MG TABLET PO SCH (09:30)
[2019-09-07] MEDS: CITALOPRAM 20 MG TABLET. PO SCH (09:31)
[2019-09-07] MEDS: cloNIDine HCL 0.1 MG TABLET PO PRN (09:31)
[2019-09-07] MEDS: diazePAM 5 MG TABLET PO SCH (09:31)
[2019-09-07] MEDS: FOLIC/VIT B COMP W-C (RENAL) TABLET. PO SCH (09:31)
[2019-09-07] MEDS: ASPIRIN ENTERIC COATED 81 MG TABLET.DR. PO SCH (09:31)
[2019-09-07] MEDS: amLODIPine BESYLATE 10 MG TABLET PO SCH (09:32)
[2019-09-07] MEDS ORDERED: IV NORMAL SALINE 1000ML BAG 1,000 ML IV PRN ×2 (10:51)
[2019-09-07] MEDS ORDERED: DIALYSIS PATIENT. MC PRN ×2 (11:00)
--- NOTE | 2019-09-07 11:10 | PDOC ---
SUBJECTIVE ROS Stable , no complaints on HD OBJECTIVE Vital Signs Vital Signs Date Time Temp Pulse Resp B/P (MAP) Pulse Ox O2 Delivery O2 Flow Rate FiO2 09/07/19 09:32 60 127/78 09/07/19 08:07 97 Room Air 09/07/19 07:59 98.2 18 98.2 I & 0 l Intake and Output 09/07/19 07:00 Intake Total 1680 ml Balance 1680 ml Intake Oral 1680 ml # Voids 3 # Bowel Movements 1 PHYSICAL EXAM Physical Exam General Appearance: NAD HENT: Mucous Memb. moist Neck: Supple n CVS: S1 S2 soft Murmur No Gallop No Rub no Edema Resp: no Rales no Rhonchi no Acc. Muscle use GI: BAS +ve NO Bruit Non Tender Non Distended : no CVA tenderness; no Suprapubic Tenderness SKIN: no Rashes NEURO: Grossly normal DIAGNOSIS/ASSESSMENT Assessment & Plan ESRD: On HD TTS under Dr. Bone's care Presented after missing 1 week of HD, dialyzed on Saturday Extra treatment today , seen on HD, tolerating well, continue as ordered, [place] Anemia: Epo for Hgb goal 10-11 Pulmonary edema: Mild at presentation Suspect due to numerous missed dialysis. On RA currently HTN associated with ESRD: missing HD BP at goal currently, post HD with UF on saturday HyperPhos- Missed treatments Continue Binders Hyperkalemia: at presentation COMMENT/RELEVANT DATA Meds Current Medications Medications (Trade) Dose Ordered Sig/Maria Antonia Start Time Stop Time Status Last Admin Dose Admin Acetaminophen (Tylenol) 650 mg PRN Q4HRS PRN 09/05/19 12:00 Acetaminophen/ Hydrocodone Bitart (Lortab 10/325) 1 tab PRN Q6HRS PRN 09/05/19 12:15 09/06/19 23:13 1 TAB Albuterol/ Ipratropium (Duoneb) 3 ml Q4H 09/05/19 12:00 09/07/19 08:07 3 ML Alprazolam (Xanax) 0.25 mg PRN BID PRN 09/05/19 12:15 Cancel Amlodipine Besylate (Norvasc) 10 mg DAILY 09/05/19 13:00 09/07/19 09:32 10 MG Aspirin (Ecotrin) 81 mg DAILYWBKFT 09/05/19 12:15 09/07/19 09:31 81 MG Atorvastatin Calcium (Lipitor) 40 mg QHS 09/05/19 21:00 09/06/19 23:02 40 MG Calcium Gluconate (Calcium Gluconate) 1,000 mg 1X ONCE 09/04/19 22:00 09/04/19 22:01 DC 09/04/19 21:44 1,000 MG Citalopram Hydrobromide (CeleXA) 40 mg DAILY 09/05/19 13:00 09/07/19 09:31 40 MG Clonidine HCl (Catapres) 0.3 mg BID 09/05/19 12:15 09/07/19 09:30 0.3 MG Darbepoetin Stu (ARANESP for DIALYSIS PTS) 60 mcg WEEKLYHS 09/05/19 21:00 09/05/19 21:31 60 MCG Dextrose (Dextrose 50%-Water Syringe) 25 gm 1X ONCE 09/04/19 22:00 09/04/19 22:01 DC 09/04/19 21:44 25 GM Diazepam (Valium) 5 mg DAILY 09/05/19 12:15 09/07/19 09:31 5 MG Docusate Sodium (Colace) 100 mg PRN BID PRN 09/05/19 12:00 Donepezil HCl (Aricept) 5 mg HS 09/05/19 21:00 09/06/19 23:02 5 MG Doxazosin Mesylate (Cardura) 8 mg QHS 09/05/19 21:00 09/06/19 23:12 8 MG Guaifenesin (Robitussin) 200 mg PRN Q4HRS PRN 09/05/19 12:00 Heparin Sodium (Porcine) (Heparin Sodium) 5,000 unit Q8HRS 09/05/19 12:00 09/07/19 06:27 5,000 UNIT Hydralazine HCl (Apresoline) 50 mg BID 09/05/19 12:15 09/07/19 09:31 50 MG Info (PHARMACY MONITORING -- do not chart) 1 each PRN DAILY PRN 09/07/19 11:00 Insulin Human Regular (HumuLIN R VIAL) 10 unit 1X ONCE 09/04/19 22:00 09/04/19 22:01 DC 09/04/19 21:44 10 UNIT Lidocaine HCl (Lidocaine 1% 20ml Vial) 20 ml 1X ONCE 09/05/19 10:30 09/05/19 10:31 DC 09/05/19 10:30 20 ML Lidocaine HCl (Xylocaine-Mpf 1% 2ml Vial) 2 ml STK-MED ONCE 09/05/19 10:22 09/05/19 10:22 DC Mirtazapine (Remeron) 30 mg QHS 09/05/19 21:00 09/06/19 23:02 30 MG Non-Formulary Medication (Sucroferric Oxyhydroxide (Velphoro)) 500 mg TID 09/05/19 14:00 UNV Ondansetron HCl (Zofran) 4 mg PRN Q4HRS PRN 09/05/19 12:00 Sodium Chloride 1,000 ml @ 400 mls/hr Q2H30M PRN 09/07/19 10:51 09/07/19 22:50 Sodium Chloride (Normal Saline Flush) 3 ml QSHIFT PRN 09/05/19 12:00 Vitamin B Complex/ Vitamin C (Jolie-Rossana) 1 tab DAILY 09/05/19 12:15 09/07/19 09:31 1 TAB Lab Laboratory Tests Test 09/07/19 05:50 Sodium Level 142 mmol/L (136-145) Potassium Level 4.8 mmol/L (3.5-5.1) Chloride Level 99 mmol/L (98-107) Carbon Dioxide Level 27 mmol/L (21-32) Anion Gap 16 (6-14) Blood Urea Nitrogen 67 mg/dL (7-20) Creatinine 8.8 mg/dL (0.6-1.0) Estimated GFR (Cockcroft-Gault) 5.5 Glucose Level 70 mg/dL (70-99) Calcium Level 8.0 mg/dL (8.5-10.1) Phosphorus Level 7.6 mg/dL (2.6-4.7) Albumin 2.8 g/dL (3.4-5.0) Results All relevant outside records, renal labs, imaging studies, telemetry/EKG's were reviewed. EDDIE BEAN MD Sep 07, 2019 11:10
[2019-09-07 11:34] VITALS: BP 131/71
--- NOTE | 2019-09-07 13:56 | SNU/HH DC ---
DISCHARGE WITH HOME HEALTH DISCHARGE INFORMATION: Discharge Date: Sep 07, 2019 Final Diagnosis: Problems Medical Problems: (1) Hyperkalemia Status: Acute (2) Pulmonary edema Status: Acute (3) Weakness Status: Acute Condition on Discharge: Stable CODE STATUS: Code Status: Full HOME HEALTH: Face to Face: I certify this patient is under my care and that I, or a nurse practitioner or physician's secretary administrative assistant working with me, had a face to face encounter that meets the physician face to face encounter requirements with this patient on 09/07/2019. Medical Complications: HTN, Other (esrd) Prison For: Assess/Skilled Observatio, Medication Management RN For Eval/Treatment: Yes Physical Therapy For: Evalulation/Treatment Occupational Therapy For: Evaluation/Treatment Home Health Aide For: Self-care CERTIFIED CAREGIVER For: Community Resources Pt Meets Homebound Status: Extreme weakness w/ amb., Fatigue w/ amb., Limited distance walking POST DISCHARGE ORDERS: Activity Instructions for Disc: Activity as tolerated Weight Bearing Status after Di: As tolerated Bathing Instructions: Shower-keep dressing dry, No Tub Bath until see DIET AFTER DISCHARGE: Renal Wound/Incision Care: Keep wound/cast CDI, No wound care needed CHECKS AFTER DISCHARGE: Checks after discharge: Check blood press - daily TREATMENT/EQUIPMENT ORDERS: Adaptive Equipment Issued: None CERTIFICATION STATEMENT: Certification Statement: Certification Statement: Based on the above finding, I certify that this patient is confined to the home and needs intermittent long term care, physical therapy and/or speech therapy, or continues to need occupational therapy.~ This patient is under my care, and I have initiated the establishment of the plan of care.~ This patient will be followed by myself or a community physician who will periodically review the plan of care. Home Meds Active Scripts Mirtazapine (MIRTAZAPINE) 15 Mg Tablet, 30 MG PO QHS for depression for 30 Days, #60 TAB Prov:IVETH DAVIS MD 05/15/19 Aspirin (ASPIRIN EC) 81 Mg Tablet.dr, 81 MG PO DAILYWBKFT for prophalaxis for 30 Days, #30 TAB.SR Prov:IVETH DAVIS MD 05/15/19 Alprazolam (ALPRAZOLAM) 0.25 Mg Tablet, 0.25 MG PO PRN BID PRN for ANXIETY / AGITATION for 30 Days, #60 TAB Prov:Tonya LAMAR MD 07/25/18 Folic Acid/Vitamin B Comp W-C (CARROLL-MARYANNE TABLET) 0.8 Mg Tablet, 1 TAB PO DAILY for kidneys for 30 Days, #30 TAB 11 Refills Prov:Tonya LAMAR MD 07/23/18 Hydrocodone/Apap 10-325 ([place] 10-325 TABLET) 1 Each Tablet, 1 TAB PO PRN Q6HRS PRN for PAIN for 30 Days, TAB 0 Refills Prov:MECHE ROGER MD 01/06/18 Atorvastatin Calcium (ATORVASTATIN CALCIUM) 40 Mg Tablet, 40 MG PO QHS, #30 Prov:Tonya LAMAR MD 07/20/15 Donepezil Hcl (ARICEPT) 5 Mg Tablet, 5 MG PO HS for 30 Days Prov:PIA PELAYO MD 05/20/15 Reported Medications Escitalopram Oxalate (LEXAPRO) 20 Mg Tablet, 1 TAB PO DAILY for Anxiety, #90 TAB 3 Refills 09/05/19 Clonidine Hcl (CLONIDINE HCL) 0.3 Mg Tablet, 0.3 MG PO BID for Hypertension, TAB 09/05/19 Hydralazine Hcl (HYDRALAZINE HCL) 50 Mg Tablet, 1 TAB PO BID for Hypertension, #180 TAB 3 Refills 09/05/19 Doxazosin Mesylate (DOXAZOSIN MESYLATE) 8 Mg Tablet, 1 TAB PO HS for hypertension, #30 TAB 5 Refills 09/05/19 Diazepam (DIAZEPAM) 5 Mg Tablet, 5 MG PO DAILY for Anxiety, TAB 09/05/19 Amlodipine Besylate (AMLODIPINE BESYLATE) 10 Mg Tablet, 10 MG PO DAILY for bp, TAB 04/14/19 Sucroferric Oxyhydroxide (VELPHORO) 500 Mg Tab.chew, 500 MG PO TID for replacement, TAB.CHEW 04/14/19 Discontinued Reported Medications Clonidine Hcl (CLONIDINE HCL) 0.2 Mg Tablet, 1 TAB PO BID for bp, #60 TAB 5 Refills 04/14/19 Doxazosin Mesylate (DOXAZOSIN MESYLATE) 4 Mg Tablet, 1 TAB PO DAILY for *, #30 TAB 5 Refills 04/14/19 Furosemide (FUROSEMIDE) 40 Mg Tablet, 1 TAB PO DAILY for diuretic, #30 TAB 5 Refills 04/14/19 ASHIA MELGAR MD Sep 07, 2019 13:56
--- NOTE | 2019-09-07 13:59 | PDOC3 ---
Discharge Summary Visit Information Date of Admission: Sep 04, 2019 Date of Discharge: Sep 07, 2019 Admitting Diagnosis: Hyperkalemia, Uremia Final Diagnosis Problems Medical Problems: (1) Hyperkalemia Status: Acute (2) Pulmonary edema Status: Acute (3) Weakness Status: Acute Brief Hospital Course Allergies Allergies Coded Allergies Type Severity Reaction Last Updated Verified hydromorphone Allergy Severe itching, sob 07/18/18 Yes morphine Allergy Severe itching, sob 09/06/19 Yes metoprolol Allergy Intermediate Itching 07/18/18 Yes Vital Signs Vital Signs Date Time Temp Pulse Resp B/P (MAP) Pulse Ox O2 Delivery O2 Flow Rate FiO2 09/07/19 11:34 98.4 59 18 131/71 (91) 98 Room Air 98.4 Lab Results Laboratory Tests Test 09/06/19 03:30 09/07/19 05:50 White Blood Count 5.7 x10^3/uL (4.0-11.0) Red Blood Count 3.14 x10^6/uL (3.50-5.40) Hemoglobin 9.5 g/dL (12.0-15.5) Hematocrit 28.0 % (36.0-47.0) Mean Corpuscular Volume 89 fL (79-100) Mean Corpuscular Hemoglobin 30 pg (25-35) Mean Corpuscular Hemoglobin Concent 34 g/dL (31-37) Red Cell Distribution Width 15.0 % (11.5-14.5) Platelet Count 214 x10^3/uL (140-400) Neutrophils (%) (Auto) 50 % (31-73) Lymphocytes (%) (Auto) 41 % (24-48) Monocytes (%) (Auto) 7 % (0-9) Eosinophils (%) (Auto) 3 % (0-3) Basophils (%) (Auto) 0 % (0-3) Neutrophils # (Auto) 2.8 x10^3/uL (1.8-7.7) Lymphocytes # (Auto) 2.3 x10^3/uL (1.0-4.8) Monocytes # (Auto) 0.4 x10^3/uL (0.0-1.1) Eosinophils # (Auto) 0.2 x10^3/uL (0.0-0.7) Basophils # (Auto) 0.0 x10^3/uL (0.0-0.2) Sodium Level 137 mmol/L (136-145) 142 mmol/L (136-145) Potassium Level 4.0 mmol/L (3.5-5.1) 4.8 mmol/L (3.5-5.1) Chloride Level 97 mmol/L (98-107) 99 mmol/L (98-107) Carbon Dioxide Level 30 mmol/L (21-32) 27 mmol/L (21-32) Anion Gap 10 (6-14) 16 (6-14) Blood Urea Nitrogen 49 mg/dL (7-20) 67 mg/dL (7-20) Creatinine 6.7 mg/dL (0.6-1.0) 8.8 mg/dL (0.6-1.0) Estimated GFR (Cockcroft-Gault) 7.5 5.5 Glucose Level 100 mg/dL (70-99) 70 mg/dL (70-99) Calcium Level 8.4 mg/dL (8.5-10.1) 8.0 mg/dL (8.5-10.1) Phosphorus Level 5.7 mg/dL (2.6-4.7) 7.6 mg/dL (2.6-4.7) Magnesium Level 2.1 mg/dL (1.8-2.4) Albumin 2.8 g/dL (3.4-5.0) 2.8 g/dL (3.4-5.0) Laboratory Tests Test 09/07/19 05:50 Sodium Level 142 mmol/L (136-145) Potassium Level 4.8 mmol/L (3.5-5.1) Chloride Level 99 mmol/L (98-107) Carbon Dioxide Level 27 mmol/L (21-32) Anion Gap 16 (6-14) Blood Urea Nitrogen 67 mg/dL (7-20) Creatinine 8.8 mg/dL (0.6-1.0) Estimated GFR (Cockcroft-Gault) 5.5 Glucose Level 70 mg/dL (70-99) Calcium Level 8.0 mg/dL (8.5-10.1) Phosphorus Level 7.6 mg/dL (2.6-4.7) Albumin 2.8 g/dL (3.4-5.0) Brief Hospital Course Ms Glover is a 64-year-old -[place] female w/ PMHx end-stage renal disease on HD, HTN. She has missed approximately 1 week of dialysis since she fell last week. She has developed progressive weakness and hence presented to the ER for further evaluation of the same. She lives with family member. Chest x-ray did show mild pulmonary edema. She was not noted to be hypoxemic. She was noted to have marginal potassium and was admitted the hospital for further evaluation and workup of her weakness. BUN 113, K 5.4. She has improved since getting dialysis, she feels stronger today. Had been refusing to work with PT. SOB improved. No CP. A/P: Weakness gait instability with recent fall Hyperkalemia ESRD (end stage renal disease) on dialysis Pulmonary edema Mild aortic valvular stenosis Mild to moderate aortic regurgitation. ECHO 05/23 HYPERTENSION DEPRESSION Greater than 30 minutes spent on d/c Discharge Information Condition at Discharge: Improved Follow Up: Weeks (1) Disposition/Orders: D/C to Home w/ HH Scheduled Amlodipine Besylate (Amlodipine Besylate) 10 Mg Tablet, 10 MG PO DAILY for bp, (Reported) Entered as Reported by: HAN RODRIGUEZ on 04/14/19 1213 Last Action: Continued on 09/05/19 1205 by ANTHONY VELASQUEZ MD Aspirin (Aspirin Ec) 81 Mg Tablet.dr, 81 MG PO DAILYWBKFT for prophalaxis for 30 Days, #30 Prescribed by: IVETH DAVIS on 05/15/19 1223 Last Action: Continued on 09/05/19 1205 by ANTHONY VELASQUEZ MD Atorvastatin Calcium (Atorvastatin Calcium) 40 Mg Tablet, 40 MG PO QHS, #30 Prescribed by: SHAMAR LAMAR on 07/20/15 1212 Last Action: Continued on 09/05/19 1205 by ANTHONY VELASQUEZ MD Clonidine Hcl (Clonidine Hcl) 0.3 Mg Tablet, 0.3 MG PO BID for Hypertension, (Reported) Entered as Reported by: Jenifer Calloway RN on 09/05/19 0432 Last Action: Continued on 09/05/191204 by ANTHONY VELASQUEZ MD Diazepam (Diazepam) 5 Mg Tablet, 5 MG PO DAILY for Anxiety, (Reported) Entered as Reported by: Jenifer Calloway RN on 2/1/20 0432 Last Action: Continued on 09/05/191204 by ANTHONY VELASQUEZ MD Donepezil Hcl (Aricept) 5 Mg Tablet, 5 MG PO HS for 30 Days Prescribed by: PIA PELAYO on 05/20/15 0933 Last Action: Continued on 09/05/191204 by ANTHONY VELASQUEZ MD Doxazosin Mesylate (Doxazosin Mesylate) 8 Mg Tablet, 1 TAB PO HS for hypertension, #30 Ref 5 (Reported) Entered as Reported by: Jenifer Calloway RN on 09/05/19431 Last Action: Converted on 09/05/191204 by ANTHONY VELASQUEZ MD Escitalopram Oxalate (Lexapro) 20 Mg Tablet, 1 TAB PO DAILY for Anxiety, #90 Ref 3 (Reported) Entered as Reported by: Jenifer Calloway RN on 09/05/19431 Last Action: Converted on 09/05/191204 by ANTHONY VELASQUEZ MD Folic Acid/Vitamin B Comp W-C (Jolie-Rossana Tablet) 0.8 Mg Tablet, 1 TAB PO DAILY for kidneys for 30 Days, #30 Ref 11 Prescribed by: DENG LAMAR MD on 07/23/18 1413 Last Action: Continued on 09/05/191204 by ANTHONY VELASQUEZ MD Hydralazine Hcl (Hydralazine Hcl) 50 Mg Tablet, 1 TAB PO BID for Hypertension, #180 Ref 3 (Reported) Entered as Reported by: Jenifer Calloway RN on 09/05/19431 Last Action: Continued on 09/05/191204 by ANTHONY VELASQUEZ MD Mirtazapine (Mirtazapine) 15 Mg Tablet, 30 MG PO QHS for depression for 30 Days, #60 Prescribed by: IVETH DAVIS on 05/15/19 1223 Last Action: Continued on 09/05/191204 by ANTHONY VELASQUEZ MD Sucroferric Oxyhydroxide (Velphoro) 500 Mg Tab.chew, 500 MG PO TID for replacement, (Reported) Entered as Reported by: HAN RODRIGUEZ on 04/14/19 1213 Last Action: Converted on 09/05/191204 by ANTHONY VELASQUEZ MD Scheduled PRN Alprazolam (Alprazolam) 0.25 Mg Tablet, 0.25 MG PO PRN BID PRN for ANXIETY / AGITATION for 30 Days, #60 Prescribed by: DENG LAMAR MD on 07/25/18 1321 Last Action: Continued on 09/05/191204 by ANTHONY VELASQUEZ MD Hydrocodone/Apap 10-325 ([place] 10-325 Tablet) 1 Each Tablet, 1 TAB PO PRN Q6HRS PRN for PAIN for 30 Days, Ref 0 Prescribed by: MECHE ROGER on 01/06/18 0757 Last Action: Continued on 09/05/191204 by ANTHONY VELASQUEZ MD Discontinued Medications Clonidine Hcl (Clonidine Hcl) 0.2 Mg Tablet, 1 TAB PO BID for bp, #60 Ref 5 (Reported) Entered as Reported by: HAN RODRIGUEZ on 04/14/191212 Last Action: Discontinued on 09/05/19432 by Jenifer Calloway RN Doxazosin Mesylate (Doxazosin Mesylate) 4 Mg Tablet, 1 TAB PO DAILY for *, #30 Ref 5 (Reported) Entered as Reported by: HAN RODRIGUEZ on 04/14/191212 Last Action: Discontinued on 09/05/19432 by Jenifer Calloway RN Furosemide (Furosemide) 40 Mg Tablet, 1 TAB PO DAILY for diuretic, #30 Ref 5 (Reported) Entered as Reported by: HAN RODRIGUEZ on 04/14/191212 Last Action: Discontinued on 09/05/19433 by ESTELA Little CHRISTOPHER S MD Sep 07, 2019 13:59
--- NOTE | 2019-09-07 15:36 | NUR ---
Dialysis took of 1.5 L of fluid. BP 130/69 HR61 T96.1
[2019-09-07 15:59] VITALS: BP 102/54
== END 2019-09-07 17:40 | disposition home health service (06) | DRG 640 ==
LOC: ER 17:37 → 6 SOUTH 21:27
PROVIDERS: ADMIT Internal Medicine; ATTEND Internal Medicine
PROC: 5A1D70Z Performance of Urinary Filtration, Intermittent, Less than 6 Hours Per Day (ICD-10-PCS; principal; 2019-09-05)
PROC: 5A1D70Z Performance of Urinary Filtration, Intermittent, Less than 6 Hours Per Day (ICD-10-PCS; 2019-09-07)
DX: E87.5 Hyperkalemia (principal); N18.6 End stage renal disease; I13.2 Hypertensive heart and chronic kidney disease with heart failure and with stage 5 chronic kidney disease, or end stage renal disease; I25.10 Atherosclerotic heart disease of native coronary artery without angina pectoris; I50.9 Heart failure, unspecified; E78.5 Hyperlipidemia, unspecified; J44.9 Chronic obstructive pulmonary disease, unspecified; K58.9 Irritable bowel syndrome, unspecified; M19.90 Unspecified osteoarthritis, unspecified site; F41.9 Anxiety disorder, unspecified; E03.9 Hypothyroidism, unspecified; F32.9 Major depressive disorder, single episode, unspecified; F17.210 Nicotine dependence, cigarettes, uncomplicated; I35.2 Nonrheumatic aortic (valve) stenosis with insufficiency; R09.02 Hypoxemia; F03.90 Unspecified dementia, unspecified severity, without behavioral disturbance, psychotic disturbance, mood disturbance, and anxiety; D64.9 Anemia, unspecified; Z99.2 Dependence on renal dialysis; Z91.15 Patient's noncompliance with renal dialysis; Z88.5 Allergy status to narcotic agent; Z88.8 Allergy status to other drugs, medicaments and biological substances; I25.2 Old myocardial infarction; Z95.5 Presence of coronary angioplasty implant and graft; Z86.73 Personal history of transient ischemic attack (TIA), and cerebral infarction without residual deficits; Z82.49 Family history of ischemic heart disease and other diseases of the circulatory system
CPT/HCPCS: 36415; 71045; 80053; 80069; 83735; 85025; 87040; 87205; 93005; 94640; 94760; 96374; 96375; J0610; J0882; J1644; J1815; J7042; J7620; 99285-25; G0378

== ENCOUNTER 2019-09-27 21:36 | Inpatient (IN) | payer MEDICARE, MEDICAID ==
[~2019-09-27] VITALS: Ht 160 cm; Wt 60.3 kg
[~2019-09-27 21:36] MED LIST changes: +DIAZ5TAB4 PO; +DOXA8TAB59 PO; +HYDR-2869 PO; +LEXAPRO20 MG PO
[2019-09-27] MEDS ORDERED: ALBUTEROL SULFATE 2.5 MG/3 ML NEBU. CONT NEB ONE (22:00)
--- NOTE | 2019-09-27 22:11 | EKG ---
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
[2019-09-27 22:17] LABS: BASO % 0 % (0-3); EOS # 0.1 x10^3/uL (0.0-0.7); EOS % 2 % (0-3); HEMATOCRIT 29.9 % (36.0-47.0); HEMOGLOBIN 10.1 g/dL (12.0-15.5); LYMPH # 1.6 x10^3/uL (1.0-4.8); LYMPH % 26 % (24-48); MEAN CORPUSCULAR HEMOGLOBIN 30 pg (25-35); MEAN CORPUSCULAR HGB CONC 34 g/dL (31-37); MEAN CORPUSCULAR VOLUME 90 fL (79-100); MONO # 0.3 x10^3/uL (0.0-1.1); MONO % 6 % (0-9); NEUT # 4.1 x10^3/uL (1.8-7.7); NEUT % 66 % (31-73); PLATELET COUNT 278 x10^3/uL (140-400); RED BLOOD COUNT 3.33 x10^6/uL (3.50-5.40); RED CELL DISTRIBUTION WIDTH 14.5 % (11.5-14.5); WHITE BLOOD COUNT 6.2 x10^3/uL (4.0-11.0)
[2019-09-27 22:32] LABS: ALBUMIN 2.7 g/dL (3.4-5.0); ALBUMIN/GLOBULIN RATIO 0.6 (1.0-1.7); CALCIUM 7.6 mg/dL (8.5-10.1); CREATININE 16.8 mg/dL (0.6-1.0); GFR 2.6; MAGNESIUM 2.5 mg/dL (1.8-2.4); TOTAL BILIRUBIN 0.3 mg/dL (0.2-1.0); TOTAL PROTEIN 7.5 g/dL (6.4-8.2)
[2019-09-27 22:36] LABS: POTASSIUM 6.7 mmol/L (3.5-5.1)
--- NOTE | 2019-09-27 22:40 | PHYS DOC ---
Past Medical History Past Medical History: CVA, Hypertension, CO, Renal Failure, Stroke Additional Past Medical Histor: Chronic Kidney Disease Past Surgical History: Cholecystectomy, Other Additional Past Surgical Histo: cardiac stents, when stroke fluid had to be drained from brain(per fam), Smoking Status: Current Every Day Smoker Alcohol Use: None Drug Use: None Adult General Chief Complaint Chief Complaint: ABNORMAL LABS [facility] HPI Patient is a 66 year old female with history of hypertension, CVA, coronary artery disease, chronic renal failure on dialysis who presents with complaint of abnormal labs. Patient signed who lives with her states she had an accidental fall from a standing position about 10 days ago without seeking medical attention and because of generalized pain. Her dialysis since September 19. Patient was seen by her dispatcher service yesterday morning and had potassium that was reported to 7.1 and patient's son was informed didn't care to the hospital at patient first stated patient didn't want to come to the hospital because she didn't feel good and finally brought her tonight. Patient is alert and oriented 3 and complaining of generalized weakness without focal neuro deficit. Review of Systems Review of Systems Constitutional: Denies fever or chills [] Eyes: Denies change in visual acuity, redness, or eye pain [] HENT: Denies nasal congestion or sore throat [] Respiratory: Denies cough or shortness of breath [] Cardiovascular: No additional information not addressed in HPI [] GI: Denies abdominal pain, nausea, vomiting, bloody stools or diarrhea [] : Denies dysuria or hematuria [] Musculoskeletal: Denies back pain or joint pain [] Integument: Denies rash or skin lesions [] Neurologic: Denies headache, focal weakness or sensory changes [] Endocrine: Denies polyuria or polydipsia [] All other systems were reviewed and found to be within normal limits, except as documented in this note. Current Medications Current Medications Current Medications Medications (Trade) Dose Ordered Sig/Maria Antonia Start Time Stop Time Status Last Admin Dose Admin Albuterol Sulfate (Ventolin Neb Soln) 10 mg 1X ONCE 09/27/19 22:00 09/27/19 22:01 DC 09/27/19 22:20 10 MG Sodium Polystyrene Sulfonate (Kayexalate) 30 gm 1X ONCE 09/27/19 22:45 09/27/19 22:46 DC 09/27/19 23:09 30 GM Allergies Allergies Allergies Coded Allergies Type Severity Reaction Last Updated Verified hydromorphone Allergy Severe itching, sob 07/18/18 Yes morphine Allergy Severe itching, sob 09/06/19 Yes metoprolol Allergy Intermediate Itching 07/18/18 Yes Physical Exam Physical Exam Constitutional: Well developed, well nourished, mild distress, non-toxic appearance. [] HENT: Normocephalic, atraumatic, bilateral external ears normal, oropharynx moist, no oral exudates, nose normal. [] Eyes: PERRLA, EOMI, conjunctiva normal, no discharge. [] Neck: Normal range of motion, no tenderness, supple, no stridor. [] Cardiovascular:Heart rate regular rhythm, heart murrmur [] Lungs & Thorax: Bilateral breath sounds clear to auscultation [] Abdomen: Bowel sounds normal, soft, no tenderness, no masses, no pulsatile masses. [] Skin: Warm, dry, no erythema, no rash. [] Back: No tenderness, no CVA tenderness. [] Extremities: No tenderness, no cyanosis, no clubbing, ROM intact, no edema. [] Neurologic: Alert and oriented X 3, normal motor function, normal sensory func tion, no focal deficits noted. [] Psychologic: Affect normal, judgement normal, mood normal. [] Current Patient Data Vital Signs Vital Signs Date Time Temp Pulse Resp B/P (MAP) Pulse Ox O2 Delivery O2 Flow Rate FiO2 09/27/19 22:15 98 Room Air 09/27/19 22:03 97.9 56 16 166/78 (107) 97.9 Lab Values Laboratory Tests Test 09/27/19 22:05 White Blood Count 6.2 x10^3/uL (4.0-11.0) Red Blood Count 3.33 x10^6/uL (3.50-5.40) L Hemoglobin 10.1 g/dL (12.0-15.5) L Hematocrit 29.9 % (36.0-47.0) L Mean Corpuscular Volume 90 fL (79-100) Mean Corpuscular Hemoglobin 30 pg (25-35) Mean Corpuscular Hemoglobin Concent 34 g/dL (31-37) Red Cell Distribution Width 14.5 % (11.5-14.5) Platelet Count 278 x10^3/uL (140-400) Neutrophils (%) (Auto) 66 % (31-73) Lymphocytes (%) (Auto) 26 % (24-48) Monocytes (%) (Auto) 6 % (0-9) Eosinophils (%) (Auto) 2 % (0-3) Basophils (%) (Auto) 0 % (0-3) Neutrophils # (Auto) 4.1 x10^3/uL (1.8-7.7) Lymphocytes # (Auto) 1.6 x10^3/uL (1.0-4.8) Monocytes # (Auto) 0.3 x10^3/uL (0.0-1.1) Eosinophils # (Auto) 0.1 x10^3/uL (0.0-0.7) Basophils # (Auto) 0.0 x10^3/uL (0.0-0.2) Sodium Level 135 mmol/L (136-145) L Potassium Level 6.7 mmol/L (3.5-5.1) *H Chloride Level 96 mmol/L (98-107) L Carbon Dioxide Level 18 mmol/L (21-32) L Anion Gap 21 (6-14) H Blood Urea Nitrogen 142 mg/dL (7-20) H Creatinine 16.8 mg/dL (0.6-1.0) H Estimated GFR (Cockcroft-Gault) 2.6 BUN/Creatinine Ratio 8 (6-20) Glucose Level 149 mg/dL (70-99) H Calcium Level 7.6 mg/dL (8.5-10.1) L Phosphorus Level 9.9 mg/dL (2.6-4.7) H Magnesium Level 2.5 mg/dL (1.8-2.4) H Total Bilirubin 0.3 mg/dL (0.2-1.0) Aspartate Amino Transferase (AST) 23 U/L (15-37) Alanine Aminotransferase (ALT) 21 U/L (14-59) Alkaline Phosphatase 177 U/L (46-116) H Total Protein 7.5 g/dL (6.4-8.2) Albumin 2.7 g/dL (3.4-5.0) L Albumin/Globulin Ratio 0.6 (1.0-1.7) L Laboratory Tests 09/27/19 22:05 Laboratory Tests 09/27/19 22:05 EKG EKG EKG interpreted by me. EKG at 2201 showed sinus bradycardia at rate of 56, multiple artifact, PVCs, left fourth axis, poor R-wave progress in anteroseptal leads, normal WA intervals, prolonged QT interval, no acute ST and T-wave elevation. Radiology/Procedures Radiology/Procedures [] Course & Med Decision Making Course & Med Decision Making Pertinent Labs and Imaging studies reviewed. (See chart for details) Evaluation of patient in ER showed 66-year-old female patient with missing dialysis and potassium of 6.7. Dr. Hastings on-call dispatcher service t was consulted at 223 and recommended to give Kayexalate and plan to do dialysis tomorrow. Patient requiring admission for further evaluation and treatment. Discussed with who is in agreement with admission. Discussed findings and plan with patient and family, who acknowledge understanding and agreement. Dragon Disclaimer Dragon Disclaimer This electronic medical record was generated, in whole or in part, using a voice recognition dictation system. Departure Departure Impression: Primary Impression: Missed dialysis Additional Impression: Hyperkalemia Disposition: ADMITTED INPATIENT (admitted at 2240) Admitting Physician: AKASHS (Dr. Jack accepted admission at 2158) Condition: GUARDED Referrals: Tonya LAMAR MD (PCP) Problem Qualifiers LYDIA HENSLEY MD Sep 27, 2019 22:40
[2019-09-27] MEDS ORDERED: SODIUM POLYSTYRENE SULFON/SORB 15 GM/60 ML ORAL.SUSP PO ONE (22:45)
[2019-09-27] MEDS ORDERED: ALPRAZolam 0.25 MG TABLET PO PRN (23:00)
[2019-09-27] MEDS ORDERED: HYDROcodone/APAP 5/325MG 1 TAB TABLET PO ONE (23:15)
--- NOTE | 2019-09-27 23:42 | RAD ---
CT HEAD AND CERVICAL SPINE WO dated 09/27/2019 10:58 PM. Comparison: 06/09/2019 Clinical Indication: Pain after fall, HEAD AND NECK PAIN Technical factors: Contiguous 5 mm axial images of the head were obtained from the skullbase to the vertex. No contrast was administered. In addition, 3 mm axial images of the cervical spine were acquired with thin cut coronal and sagittal reconstructions. One or more of the following individualized dose reduction techniques were utilized for this examination: 1. Automated exposure control 2. Adjustment of the mA and/or kV according to patient size 3. Use of iterative reconstruction technique Findings head: Ventricles and sulci are mildly prominent for age. No midline shift or mass effect. Moderate patchy low density in the deep/subcortical periventricular white matter. Remote cortical infarcts of the right parietal lobe and left occipital lobe. Remote cortical infarct of the anterior right frontal lobe. There are also small remote infarcts of the right cerebellum. No hemorrhage or extra-axial collection. Posterior fossa and brainstem otherwise unremarkable. Visualized paranasal sinuses and mastoid air cells are clear. No apparent calvarial abnormality. Tiny polyp or mucous retention cyst of the right maxillary sinus. There is some deformity of the right orbital medial wall consistent with remote fracture, unchanged. IMPRESSION HEAD: 1. No evidence of acute intracranial hemorrhage or mass. 2. Moderate chronic small vessel ischemic changes and atrophy. There are multiple remote infarcts as detailed above. 3. Remote medial orbital wall blowout fracture on the right Findings cervical spine: Images were acquired from the skull base to T4. There is straightening of the normal cervical lordosis, otherwise sagittal alignment is anatomic. Vertebral body heights are maintained. No prevertebral soft tissue swelling. Posterior elements are intact. No fractures are identified. Moderate endplate hypertrophic changes throughout with moderate multilevel disc space narrowing and uncovertebral spurring. Multilevel facet arthropathy. There is resultant moderate central stenosis at C5-C6 and C6-C7 with moderate bilateral foraminal stenosis at C5-C6. No apparent focal disc herniation. No significant soft tissue abnormality. Limited images of the lung apices are clear. There are dense atelectatic calcifications of the bilateral carotid systems. IMPRESSION CERVICAL SPINE: 1. No evidence of fracture or malalignment. 2. Moderate multilevel spondylosis. Electronically signed by: Caleb Bryant MD (09/27/2019 11:39 PM) [id number]
--- NOTE | 2019-09-28 00:33 | RAD ---
EXAM: CHEST ONE VIEW. HISTORY: Renal failure, volume overload. COMPARISON: 09/04/2019. FINDINGS: A frontal view of the chest is obtained. Mild interstitial opacities in the bases are consistent with atelectasis and mild pulmonary edema. There is focal scarring in the left midlung. There is no pneumothorax or clear pleural effusion. The heart is moderately enlarged. There are atherosclerotic calcifications of the aorta. IMPRESSION: 1. Moderate cardiomegaly. Mild pulmonary edema. Electronically signed by: Ez Sheets MD (09/28/2019 12:30 AM) [id number]
[2019-09-28 01:25] VITALS: BP 155/80
[2019-09-28 03:40] VITALS: BP 148/75
[2019-09-28 07:22] VITALS: BP 163/77
[2019-09-28] MEDS ORDERED: IV NORMAL SALINE 1000ML BAG 1,000 ML IV PRN ×2 (08:21)
[2019-09-28] MEDS ORDERED: DIALYSIS PATIENT. MC PRN ×2 (08:30)
[2019-09-28] MEDS: cloNIDine HCL 0.3 MG TABLET PO SCH ×2 (09:00→22:40)
--- NOTE | 2019-09-28 09:44 | PDOC2 ---
CONSULT Date of Consult Date of Consult DATE: 09/28/19 TIME: 09:34 Reason for Consult Reason for Consult: ESRD, Missed HD treatments Source Source: Chart review, Patient History of Present Illness Reason for Visit: Patient is a 66 year old AA female with history of hypertension, CVA, coronary artery disease, esrd on dialysis who presents with complaint of abnormal labs.She had an accidental fall from a standing position about 10 days ago did not seek medical help and . Didnt go for HD because of generalized pain. Her last dialysis was September 19. She was found to have K of 7.1 ? Dialysis unit on saturday and was advised to go to the ER , Pt refused because she didn't feel good and son finally brought her last night Patient is alert and oriented 3 and complaining of generalized weakness without focal neuro deficit. Currently seen on HD, denies any complaints, states she is feeling well Past Medical History Cardiovascular: CAD, CHF, HTN, Hyperlipidemia, Valve insufficiency Pulmonary: COPD CENTRAL NERVOUS SYSTEM: CVA, Dementia, Other GI: Irritable bowel disease Heme/Onc: No pertinent hx Hepatobiliary: No pertinent hx Psych: Anxiety, Depression Musculoskeletal: Osteoarthritis Rheumatologic: No pertinent hx Infectious disease: No pertinent hx Renal/: Chronic renal failure Endocrine: Hypothyroidism, Hyperparathyroidism Past Surgical History Past Surgical History: Cholecystectomy Family History Family History: Cancer, Hypertension Social History Social History: Other ALCOHOL: none Drugs: None Lives: Alone Current Problem List Problem List Problems Medical Problems: (1) Hyperkalemia Status: Acute (2) Missed dialysis Status: Acute Current Medications Current Medications Current Medications Albuterol Sulfate (Ventolin Neb Soln) 10 mg 1X ONCE CONT NEB Last administered on 09/27/19at 22:20; Start 09/27/19 at 22:00; Stop 09/27/19 at 22:01; Status DC Sodium Polystyrene Sulfonate (Kayexalate) 30 gm 1X ONCE PO Last administered on 09/27/19at 23:09; Start 09/27/19 at 22:45; Stop 09/27/19 at 22:46; Status DC Alprazolam (Xanax) 0.25 mg PRN BID PRN PO ANXIETY / AGITATION; Start 09/27/19 at 23:00 Amlodipine Besylate (Norvasc) 10 mg DAILY PO ; Start 09/28/19 at 09:00 Aspirin (Ecotrin) 81 mg DAILYWBKFT PO ; Start 09/28/19 at 08:00 Atorvastatin Calcium (Lipitor) 40 mg QHS PO ; Start 09/28/19 at 21:00 Clonidine HCl (Catapres) 0.3 mg BID PO ; Start 09/28/19 at 09:00 Donepezil HCl (Aricept) 5 mg HS PO ; Start 09/28/19 at 21:00 Hydralazine HCl (Apresoline) 50 mg BID PO ; Start 09/28/19 at 09:00 Mirtazapine (Remeron) 30 mg QHS PO ; Start 09/28/19 at 21:00 Acetaminophen/ Hydrocodone Bitart (Lortab 5/325) 1 tab 1X ONCE PO ; Start 09/27/19 at 23:15; Stop 09/27/19 at 23:16; Status DC Sodium Chloride 1,000 ml @ 1,000 mls/hr Q1H PRN IV hypotension; Start 09/28/19 at 08:21; Stop 09/28/19 at 14:20 Sodium Chloride 1,000 ml @ 400 mls/hr Q2H30M PRN IV PATENCY; Start 09/28/19 at 08:21; Stop 09/28/19 at 20:20 Info (PHARMACY MONITORING -- do not chart) 1 each PRN DAILY PRN MC SEE COMMENTS; Start 09/28/19 at 08:30 Info (PHARMACY MONITORING -- do not chart) 1 each PRN DAILY PRN MC SEE COMMENTS; Start 09/28/19 at 08:30 Active Scripts Active Mirtazapine 15 Mg Tablet 30 Mg PO QHS 30 Days Aspirin Ec (Aspirin) 81 Mg Tablet.dr 81 Mg PO DAILYWBKFT 30 Days Alprazolam 0.25 Mg Tablet 0.25 Mg PO PRN BID PRN 30 Days Jolie-Rossana Tablet (Folic Acid/Vitamin B Comp W-C) 0.8 Mg Tablet 1 Tab PO DAILY 30 Days Remington 10-325 Tablet (Acetaminophen/Hydrocodone Bitart) 1 Each Tablet 1 Tab PO PRN Q6HRS PRN 30 Days Atorvastatin Calcium 40 Mg Tablet 40 Mg PO QHS Aricept (Donepezil Hcl) 5 Mg Tablet 5 Mg PO HS 30 Days Reported Lexapro (Escitalopram Oxalate) 20 Mg Tablet 1 Tab PO DAILY Clonidine Hcl 0.3 Mg Tablet 0.3 Mg PO BID Hydralazine Hcl 50 Mg Tablet 1 Tab PO BID Doxazosin Mesylate 8 Mg Tablet 1 Tab PO HS Diazepam 5 Mg Tablet 5 Mg PO DAILY Amlodipine Besylate 10 Mg Tablet 10 Mg PO DAILY Velphoro (Sucroferric Oxyhydroxide) 500 Mg Tab.chew 500 Mg PO TID Allergies Allergies: Coded Allergies: hydromorphone (Verified Allergy, Severe, itching, sob, 07/18/18) morphine (Verified Allergy, Severe, itching, sob, 09/06/19) metoprolol (Verified Allergy, Intermediate, Itching, 07/18/18) ROS Review of System Per HPI Physical Exam Physical Exam General Appearance: NAD HENT: Mucous Memb. moist Neck: Supple CVS:S1 S2 soft Murmur Resp: no Rales, no Rhonchi , no Acc. Muscle use GI: BAS +ve NO Bruit Non Tender Non Distended : no CVA tenderness; no Suprapubic Tenderness SKIN: no Rashes NEURO: Grossly normal Ext No edema Vital Signs Vital Signs Date Time Temp Pulse Resp B/P (MAP) Pulse Ox O2 Delivery O2 Flow Rate FiO2 09/28/19 08:00 Room Air 09/28/19 07:22 98.2 57 20 163/77 (105) 96 98.2 Assessment & Plan ESRD: On HD TTS under Dr. Bone's care Presented after missing > 1 week of HD, has similar Hx in the past as well Emergent HD this morning 2/2 Hyperkalemia ; BUN/Cr 142/16.8 seen on HD, tolerating well, continue as ordered, [place] Hyperkalemia - Missed Hd treatments for >1 week Emergent HD this am Anemia: Epo per protocol HTN : missed Treatments Home antihypertensives Labs Labs Laboratory Tests Test 09/27/19 22:05 White Blood Count 6.2 x10^3/uL (4.0-11.0) Red Blood Count 3.33 x10^6/uL (3.50-5.40) Hemoglobin 10.1 g/dL (12.0-15.5) Hematocrit 29.9 % (36.0-47.0) Mean Corpuscular Volume 90 fL (79-100) Mean Corpuscular Hemoglobin 30 pg (25-35) Mean Corpuscular Hemoglobin Concent 34 g/dL (31-37) Red Cell Distribution Width 14.5 % (11.5-14.5) Platelet Count 278 x10^3/uL (140-400) Neutrophils (%) (Auto) 66 % (31-73) Lymphocytes (%) (Auto) 26 % (24-48) Monocytes (%) (Auto) 6 % (0-9) Eosinophils (%) (Auto) 2 % (0-3) Basophils (%) (Auto) 0 % (0-3) Neutrophils # (Auto) 4.1 x10^3/uL (1.8-7.7) Lymphocytes # (Auto) 1.6 x10^3/uL (1.0-4.8) Monocytes # (Auto) 0.3 x10^3/uL (0.0-1.1) Eosinophils # (Auto) 0.1 x10^3/uL (0.0-0.7) Basophils # (Auto) 0.0 x10^3/uL (0.0-0.2) Sodium Level 135 mmol/L (136-145) Potassium Level 6.7 mmol/L (3.5-5.1) Chloride Level 96 mmol/L (98-107) Carbon Dioxide Level 18 mmol/L (21-32) Anion Gap 21 (6-14) Blood Urea Nitrogen 142 mg/dL (7-20) Creatinine 16.8 mg/dL (0.6-1.0) Estimated GFR (Cockcroft-Gault) 2.6 BUN/Creatinine Ratio 8 (6-20) Glucose Level 149 mg/dL (70-99) Calcium Level 7.6 mg/dL (8.5-10.1) Phosphorus Level 9.9 mg/dL (2.6-4.7) Magnesium Level 2.5 mg/dL (1.8-2.4) Total Bilirubin 0.3 mg/dL (0.2-1.0) Aspartate Amino Transf (AST/SGOT) 23 U/L (15-37) Alanine Aminotransferase (ALT/SGPT) 21 U/L (14-59) Alkaline Phosphatase 177 U/L (46-116) Total Protein 7.5 g/dL (6.4-8.2) Albumin 2.7 g/dL (3.4-5.0) Albumin/Globulin Ratio 0.6 (1.0-1.7) Laboratory Tests Test 09/27/19 22:05 White Blood Count 6.2 x10^3/uL (4.0-11.0) Red Blood Count 3.33 x10^6/uL (3.50-5.40) Hemoglobin 10.1 g/dL (12.0-15.5) Hematocrit 29.9 % (36.0-47.0) Mean Corpuscular Volume 90 fL (79-100) Mean Corpuscular Hemoglobin 30 pg (25-35) Mean Corpuscular Hemoglobin Concent 34 g/dL (31-37) Red Cell Distribution Width 14.5 % (11.5-14.5) Platelet Count 278 x10^3/uL (140-400) Neutrophils (%) (Auto) 66 % (31-73) Lymphocytes (%) (Auto) 26 % (24-48) Monocytes (%) (Auto) 6 % (0-9) Eosinophils (%) (Auto) 2 % (0-3) Basophils (%) (Auto) 0 % (0-3) Neutrophils # (Auto) 4.1 x10^3/uL (1.8-7.7) Lymphocytes # (Auto) 1.6 x10^3/uL (1.0-4.8) Monocytes # (Auto) 0.3 x10^3/uL (0.0-1.1) Eosinophils # (Auto) 0.1 x10^3/uL (0.0-0.7) Basophils # (Auto) 0.0 x10^3/uL (0.0-0.2) Sodium Level 135 mmol/L (136-145) Potassium Level 6.7 mmol/L (3.5-5.1) Chloride Level 96 mmol/L (98-107) Carbon Dioxide Level 18 mmol/L (21-32) Anion Gap 21 (6-14) Blood Urea Nitrogen 142 mg/dL (7-20) Creatinine 16.8 mg/dL (0.6-1.0) Estimated GFR (Cockcroft-Gault) 2.6 BUN/Creatinine Ratio 8 (6-20) Glucose Level 149 mg/dL (70-99) Calcium Level 7.6 mg/dL (8.5-10.1) Phosphorus Level 9.9 mg/dL (2.6-4.7) Magnesium Level 2.5 mg/dL (1.8-2.4) Total Bilirubin 0.3 mg/dL (0.2-1.0) Aspartate Amino Transf (AST/SGOT) 23 U/L (15-37) Alanine Aminotransferase (ALT/SGPT) 21 U/L (14-59) Alkaline Phosphatase 177 U/L (46-116) Total Protein 7.5 g/dL (6.4-8.2) Albumin 2.7 g/dL (3.4-5.0) Albumin/Globulin Ratio 0.6 (1.0-1.7) Review All relevant outside records, renal labs, imaging studies, telemetry/EKG's were reviewed. Images Images CxR-- 1. Moderate cardiomegaly. Mild pulmonary edema. EDDIE BEAN MD Sep 28, 2019 09:44
--- NOTE | 2019-09-28 11:26 | HP ---
ADMIT DATE: 09/28/2019 CHIEF COMPLAINT: I missed dialysis. Abnormal labs. HISTORY OF PRESENT ILLNESS: The patient is a pleasant 66-year-old female who missed dialysis. She presented with lab abnormalities, was noted to have a potassium of 7.1. She has some associated weakness that has been occurring for 10 days. It is worse with standing, better with sitting still. She took home meds, but that did not help. I discussed the case with ER physician. We are going to admit the patient and get her dialyzed. PAST MEDICAL HISTORY: Noncompliance; end-stage renal disease, on dialysis; strokes; hypertension; myocardial infarction; cholecystectomy; cardiac stents; she had "fluid drained from the brain"; tobacco abuse. ALLERGIES: HYDROMORPHONE, METOPROLOL, AND MORPHINE. FAMILY HISTORY: End-stage renal disease. SOCIAL HISTORY: She smokes. No drink or drugs. MEDICATIONS: Reviewed, please refer to the MRAD. REVIEW OF SYSTEMS: GENERAL: No history of weight change, weakness or fevers. SKIN: No bruising, hair changes or rashes. EYES: No blurred, double or loss of vision. NOSE AND THROAT: No history of nosebleeds, hoarseness or sore throat. HEART: No history of palpitations, chest pain or shortness of breath on exertion. LUNGS: Denies cough, hemoptysis, wheezing or shortness of breath. GASTROINTESTINAL: Denies changes in appetite, nausea, vomiting, diarrhea or constipation. GENITOURINARY: No history of frequency, urgency, hesitancy or nocturia. NEUROLOGIC: Denies history of numbness, tingling, tremor or weakness. PSYCHIATRIC: No history of panic, anxiety or depression. ENDOCRINE: No history of heat or cold intolerance, polyuria or polydipsia. EXTREMITIES: Denies muscle weakness, joint pain, pain on walking or stiffness. PHYSICAL EXAMINATION: VITALS: Within normal limits and are stable. GENERAL: No apparent distress. Alert and oriented. HEENT: Normal cephalic atraumatic, external auditory canals are patent. EYES: Extraocular muscles are intact, pupils are equally round and reactive to light and accommodation. MUSKULOSKELETAL: Well developed, well nourished, good range of motion. ENDOCRINE: No thyromegaly was palpated. LYMPHATICS: No cervical chain or axillary nodes were noted. HEMATOPOIETIC: No bruising. NECK: Supple, no JVD, no thyromegaly was noted. LUNGS: Clear to auscultation in all lung black without rhonchi or wheezing. HEART: RRR, S1, S2 present. Peripheral pulses intact, no obvious murmurs were noted. ABDOMEN: Soft, nontender. Positive bowel sounds no organomegaly, normal bowel sounds. EXTREMITIES: Without any cyanosis, clubbing, or edema. Pedal pulses intact, Homans sign is negative. NEUROLOGIC: Normal speech, normal tone. A and O x 3, moves all extremities, no obvious focal deficits. PSYCHIATRIC: Normal affect, normal mood. Stable. SKIN: No ulcerations or rashes, good skin turgor, no jaundice. VASCULAR: Good capillary refill, neurovascular bundle appears to be intact. LABORATORY DATA: Hemoglobin is 10.1. Potassium 6.7, BUN 142, creatinine 16.8. ASSESSMENT AND PLAN: Severe azotemia, severe hyperkalemia, and anemia in a middle-aged female who missed dialysis. We will go ahead and get her dialyzed emergently. Consult Dr. Bone. Hyperkalemia protocol. Deep venous thrombosis prophylaxis. Home meds. Full code. HAML Bri DE SANTIAGO DO DR: ALEXANDRE/rubi JOB#: [id number] / [id number]
[2019-09-28] MEDS: ASPIRIN ENTERIC COATED 81 MG TABLET.DR. PO SCH (15:19)
[2019-09-28] MEDS: HYDROcodone/APAP 5/325MG 1 TAB TABLET PO PRN ×2 (15:19→22:47)
[2019-09-28 15:20] VITALS: BP 195/98
[2019-09-28] MEDS: amLODIPine BESYLATE 10 MG TABLET PO SCH (15:21)
[2019-09-28 19:00] VITALS: BP 131/72
[2019-09-28] MEDS: MIRTAZAPINE 15 MG TABLET PO SCH (22:39)
[2019-09-28] MEDS: DONEPEZIL HCL 5 MG TABLET. PO SCH (22:39)
[2019-09-28] MEDS: ATORVASTATIN CALCIUM 40 MG TABLET. PO SCH (22:39)
[2019-09-28 23:00] VITALS: BP 142/97
[2019-09-29 03:00] VITALS: BP 130/72
[2019-09-29 07:00] VITALS: BP 143/71
[2019-09-29] MEDS ORDERED: IV NORMAL SALINE 1000ML BAG 1,000 ML IV PRN ×2 (08:00)
[2019-09-29] MEDS: cloNIDine HCL 0.3 MG TABLET PO SCH ×2 (09:00→23:19)
[2019-09-29 09:35] LABS: HEMATOCRIT 32.2 % (36.0-47.0); HEMOGLOBIN 10.8 g/dL (12.0-15.5)
[2019-09-29 09:50] LABS: CALCIUM 8.2 mg/dL (8.5-10.1); CREATININE 7.8 mg/dL (0.6-1.0); GFR 6.3; POTASSIUM 4.9 mmol/L (3.5-5.1)
[2019-09-29 09:55] LABS: ALBUMIN 2.6 g/dL (3.4-5.0); ALBUMIN/GLOBULIN RATIO 0.6 (1.0-1.7); TOTAL BILIRUBIN 0.4 mg/dL (0.2-1.0)
--- NOTE | 2019-09-29 10:25 | PDOC ---
[facility] [facility] PROGRESS NOTE Chief Complaint Chief Complaint Severe azotemia, severe hyperkalemia, and anemia History of Present Illness History of Present Illness 09/29/2019 Pt seen and examined Chart reviewed Discussed pt care with RN Discussed consultation from data center architect with pt Discussed dialysis tx with pt On IV fluids Vitals/I&O Vitals/I&O: Vital Signs Date Time Temp Pulse Resp B/P (MAP) Pulse Ox O2 Delivery O2 Flow Rate FiO2 09/29/19 08:00 Room Air 09/29/19 07:00 97.1 48 18 143/71 (95) 98 97.1 I & O 09/28/19 09/28/19 09/29/19 14:59 22:59 06:59 Intake Total 320 ml 400 ml Output Total 200 ml Balance 320 ml 200 ml Physical Exam General: Alert, Oriented X3, Cooperative Heart: Regular rate Lungs: Clear Abdomen: Normal bowel sounds Extremities: No clubbing, No cyanosis Skin: No rashes, No significant lesion Labs Labs: Laboratory Tests Test 09/29/19 08:45 Hemoglobin 10.8 g/dL (12.0-15.5) Hematocrit 32.2 % (36.0-47.0) Mean Corpuscular Hemoglobin Concent 34 g/dL (31-37) Sodium Level 138 mmol/L (136-145) Potassium Level 4.9 mmol/L (3.5-5.1) Chloride Level 96 mmol/L (98-107) Carbon Dioxide Level 30 mmol/L (21-32) Anion Gap 12 (6-14) Blood Urea Nitrogen 53 mg/dL (7-20) Creatinine 7.8 mg/dL (0.6-1.0) Estimated GFR (Cockcroft-Gault) 6.3 BUN/Creatinine Ratio 7 (6-20) Glucose Level 77 mg/dL (70-99) Calcium Level 8.2 mg/dL (8.5-10.1) Total Bilirubin 0.4 mg/dL (0.2-1.0) Aspartate Amino Transf (AST/SGOT) 20 U/L (15-37) Alanine Aminotransferase (ALT/SGPT) 21 U/L (14-59) Alkaline Phosphatase 167 U/L (46-116) Total Protein 7.0 g/dL (6.4-8.2) Albumin 2.6 g/dL (3.4-5.0) Albumin/Globulin Ratio 0.6 (1.0-1.7) Review of Systems Review of Systems: Neuro: pt denies MONTERO and changes in vision GI: pt denies NV and abd pain Assessment and Plan Assessmemt and Plan Severe azotemia, severe hyperkalemia, and anemia from missed dialysis Plan Continue dialysis MWF appreciate input from subspecialists Dialysis today because of severe azotemia and hyperkalemia Recheck labs tomorrow Continue home meds Full code DVT prophylaxis PT/OT D/C when approved by subspecialists Comment Review of Relevant I have reviewed the following items ross (where applicable) has been applied. Medications: Current Medications Medications (Trade) Dose Ordered Sig/Maria Antonia Route PRN Reason Start Time Stop Time Status Last Admin Dose Admin Atorvastatin Calcium (Lipitor) 40 mg QHS PO 09/28/19 21:00 09/28/19 22:39 Donepezil HCl (Aricept) 5 mg HS PO 09/28/19 21:00 09/28/19 22:39 Mirtazapine (Remeron) 30 mg QHS PO 09/28/19 21:00 09/28/19 22:39 Acetaminophen/ Hydrocodone Bitart (Lortab 5/325) 1 tab PRN Q4HRS PRN PO PAIN 09/28/19 15:15 09/28/19 22:47 DEON DE SANTIAGO III DO Sep 29, 2019 10:25
[2019-09-29] MEDS ORDERED: DIALYSIS PATIENT. MC PRN ×2 (11:30)
--- NOTE | 2019-09-29 11:44 | NUR ---
SS following for discharge planning. SS reviewed pt chart. Pt is from home and is currently on room air. Pt has outpatient dialysis set up at [facility], ; fax [phone]. Pt has had previous services with [facility], ; fax [phone]. SS will continue to follow for discharge planning.
--- NOTE | 2019-09-29 13:23 | PDOC ---
Renal-Progress Notes Subjective Notes Notes NO NEW COMPLAINTS History of Present Illness Hx of present illness STABLE Vitals Vitals Vital Signs Date Time Temp Pulse Resp B/P (MAP) Pulse Ox O2 Delivery O2 Flow Rate FiO2 09/29/19 08:00 Room Air 09/29/19 07:00 97.1 48 18 143/71 (95) 98 97.1 Weight Weight [ ] I.O. Intake and Output Intake and Output 09/29/19 07:00 Intake Total 720 ml Output Total 200 ml Balance 520 ml Intake Oral 720 ml Output Urine Total 200 ml # Voids 1 # Bowel Movements 1 Labs Labs Laboratory Tests Test 09/29/19 08:45 Hemoglobin 10.8 g/dL (12.0-15.5) Hematocrit 32.2 % (36.0-47.0) Mean Corpuscular Hemoglobin Concent 34 g/dL (31-37) Sodium Level 138 mmol/L (136-145) Potassium Level 4.9 mmol/L (3.5-5.1) Chloride Level 96 mmol/L (98-107) Carbon Dioxide Level 30 mmol/L (21-32) Anion Gap 12 (6-14) Blood Urea Nitrogen 53 mg/dL (7-20) Creatinine 7.8 mg/dL (0.6-1.0) Estimated GFR (Cockcroft-Gault) 6.3 BUN/Creatinine Ratio 7 (6-20) Glucose Level 77 mg/dL (70-99) Calcium Level 8.2 mg/dL (8.5-10.1) Total Bilirubin 0.4 mg/dL (0.2-1.0) Aspartate Amino Transf (AST/SGOT) 20 U/L (15-37) Alanine Aminotransferase (ALT/SGPT) 21 U/L (14-59) Alkaline Phosphatase 167 U/L (46-116) Total Protein 7.0 g/dL (6.4-8.2) Albumin 2.6 g/dL (3.4-5.0) Albumin/Globulin Ratio 0.6 (1.0-1.7) Review of Systems Constitutional: yes: alert Ears/Nose/Throat: Yes: no symptom reported Eyes: Yes: no symptom reported Pulmonary: Yes no symptom reported Cardiovascular: Yes no symptom reported Gastrointestional: Yes: constipation Genitourinary: Yes: no symptom reported Musculoskeletal: Yes: no symptom reported Skin: Yes no symptom reported Psychiatric/Neurological: Yes: no symptom reported Endocrine: Yes: no symptom reported Physical Exam General Appearance: no apparent distress Skin: warm Respiratory: bilateral CTA Heart: S1S2 Abdomen: soft, bowel sounds present Genitourinary: bladder flat Extremities: pulses present Neurology: alert, oriented Musculoskeletal: Osteoarthritis Assessment Assessment IMP ESRD ANEMIA HTN NON COMPLIANCE DEMENTIA HYPERKALEMIA PLAN HD TODAY UF TO DW ENC COMPLIANCE SANTIAGO WHEN NEEDED MILES NESS MD Sep 29, 2019 13:23
[2019-09-29] MEDS: HYDROcodone/APAP 5/325MG 1 TAB TABLET PO PRN ×2 (14:04→23:19)
[2019-09-29] MEDS: amLODIPine BESYLATE 10 MG TABLET PO SCH (14:04)
[2019-09-29] MEDS: ASPIRIN ENTERIC COATED 81 MG TABLET.DR. PO SCH (14:04)
[2019-09-29 15:00] VITALS: BP 130/76
[2019-09-29 19:53] VITALS: BP 147/72
[2019-09-29] MEDS: ATORVASTATIN CALCIUM 40 MG TABLET. PO SCH (23:18)
[2019-09-29] MEDS: MIRTAZAPINE 15 MG TABLET PO SCH (23:18)
[2019-09-29] MEDS: DONEPEZIL HCL 5 MG TABLET. PO SCH (23:18)
[2019-09-29 23:23] VITALS: BP 149/73
[2019-09-30 03:28] VITALS: BP 118/58
[2019-09-30 07:30] VITALS: BP 108/68
[2019-09-30 07:50] LABS: BASO % 0 % (0-3); EOS # 0.4 x10^3/uL (0.0-0.7); EOS % 6 % (0-3); HEMATOCRIT 34.1 % (36.0-47.0); HEMOGLOBIN 11.3 g/dL (12.0-15.5); LYMPH % 47 % (24-48); MEAN CORPUSCULAR HEMOGLOBIN 30 pg (25-35); MEAN CORPUSCULAR HGB CONC 33 g/dL (31-37); MEAN CORPUSCULAR VOLUME 90 fL (79-100); MONO # 0.4 x10^3/uL (0.0-1.1); MONO % 6 % (0-9); NEUT # 2.6 x10^3/uL (1.8-7.7); NEUT % 41 % (31-73); PLATELET COUNT 241 x10^3/uL (140-400); RED BLOOD COUNT 3.79 x10^6/uL (3.50-5.40); RED CELL DISTRIBUTION WIDTH 15.1 % (11.5-14.5); WHITE BLOOD COUNT 6.4 x10^3/uL (4.0-11.0)
[2019-09-30 08:25] LABS: CALCIUM 8.6 mg/dL (8.5-10.1); CREATININE 6.4 mg/dL (0.6-1.0); GFR 7.9; POTASSIUM 5.2 mmol/L (3.5-5.1)
[2019-09-30] MEDS: amLODIPine BESYLATE 10 MG TABLET PO SCH (09:29)
[2019-09-30] MEDS: cloNIDine HCL 0.3 MG TABLET PO SCH (09:30)
[2019-09-30] MEDS: ASPIRIN ENTERIC COATED 81 MG TABLET.DR. PO SCH (09:30)
[2019-09-30] MEDS: HYDROcodone/APAP 5/325MG 1 TAB TABLET PO PRN (09:35)
[2019-09-30 11:34] VITALS: BP 97/49
--- NOTE | 2019-09-30 13:13 | PDOC ---
[employer] [facility] PROGRESS NOTE Chief Complaint Chief Complaint Severe azotemia, severe hyperkalemia, and anemia History of Present Illness History of Present Illness [id number] Patient seen and examined Discussed with RN Chart reviewed Plan is to probably discharge later today 09/29/2019 Pt seen and examined Chart reviewed Discussed pt care with RN Discussed consultation from marker delivery with pt Discussed dialysis tx with pt On IV fluids Vitals/I&O Vitals/I&O: Vital Signs Date Time Temp Pulse Resp B/P (MAP) Pulse Ox O2 Delivery O2 Flow Rate FiO2 09/30/19 11:34 99.3 55 18 97/49 (65) 98 Room Air 99.3 I & O 09/29/19 09/29/19 09/30/19 15:00 23:00 07:00 Intake Total 120 ml 420 ml Balance 120 ml 420 ml Physical Exam General: Alert, Oriented X3, Cooperative Heart: Regular rate Lungs: Clear Abdomen: Normal bowel sounds Extremities: No clubbing, No cyanosis Skin: No rashes, No significant lesion Labs Labs: Laboratory Tests Test 09/30/19 06:30 White Blood Count 6.4 x10^3/uL (4.0-11.0) Red Blood Count 3.79 x10^6/uL (3.50-5.40) Hemoglobin 11.3 g/dL (12.0-15.5) Hematocrit 34.1 % (36.0-47.0) Mean Corpuscular Volume 90 fL (79-100) Mean Corpuscular Hemoglobin 30 pg (25-35) Mean Corpuscular Hemoglobin Concent 33 g/dL (31-37) Red Cell Distribution Width 15.1 % (11.5-14.5) Platelet Count 241 x10^3/uL (140-400) Neutrophils (%) (Auto) 41 % (31-73) Lymphocytes (%) (Auto) 47 % (24-48) Monocytes (%) (Auto) 6 % (0-9) Eosinophils (%) (Auto) 6 % (0-3) Basophils (%) (Auto) 0 % (0-3) Neutrophils # (Auto) 2.6 x10^3/uL (1.8-7.7) Lymphocytes # (Auto) 3.0 x10^3/uL (1.0-4.8) Monocytes # (Auto) 0.4 x10^3/uL (0.0-1.1) Eosinophils # (Auto) 0.4 x10^3/uL (0.0-0.7) Basophils # (Auto) 0.0 x10^3/uL (0.0-0.2) Sodium Level 138 mmol/L (136-145) Potassium Level 5.2 mmol/L (3.5-5.1) Chloride Level 99 mmol/L (98-107) Carbon Dioxide Level 26 mmol/L (21-32) Anion Gap 13 (6-14) Blood Urea Nitrogen 57 mg/dL (7-20) Creatinine 6.4 mg/dL (0.6-1.0) Estimated GFR (Cockcroft-Gault) 7.9 Glucose Level 63 mg/dL (70-99) Calcium Level 8.6 mg/dL (8.5-10.1) Review of Systems Review of Systems: Complains of weakness complains of hunger Assessment and Plan Assessmemt and Plan Problems Medical Problems: (1) Hyperkalemia Status: Acute (2) Missed dialysis Status: Acute Severe azotemia, severe hyperkalemia, and anemia from missed dialysis Plan Continue dialysis MWF appreciate input from subspecialists Dialysis today because of severe azotemia and hyperkalemia Recheck labs tomorrow Continue home meds Full code DVT prophylaxis PT/OT D/C later today if okay with subspecialist Comment Review of Relevant I have reviewed the following items ross (where applicable) has been applied. DEON DE SANTIAGO III, DO Sep 30, 2019 13:13
--- NOTE | 2019-09-30 13:15 | PDOC ---
Renal-Progress Notes Subjective Notes Notes NO NEW COMPLAINTS History of Present Illness Hx of present illness STABLE Vitals Vitals Vital Signs Date Time Temp Pulse Resp B/P (MAP) Pulse Ox O2 Delivery O2 Flow Rate FiO2 09/30/19 11:34 99.3 55 18 97/49 (65) 98 Room Air 99.3 Weight Weight [ ] I.O. Intake and Output Intake and Output 09/30/19 07:00 Intake Total 540 ml Balance 540 ml Intake Oral 540 ml # Bowel Movements 1 Labs Labs Laboratory Tests Test 09/30/19 06:30 White Blood Count 6.4 x10^3/uL (4.0-11.0) Red Blood Count 3.79 x10^6/uL (3.50-5.40) Hemoglobin 11.3 g/dL (12.0-15.5) Hematocrit 34.1 % (36.0-47.0) Mean Corpuscular Volume 90 fL (79-100) Mean Corpuscular Hemoglobin 30 pg (25-35) Mean Corpuscular Hemoglobin Concent 33 g/dL (31-37) Red Cell Distribution Width 15.1 % (11.5-14.5) Platelet Count 241 x10^3/uL (140-400) Neutrophils (%) (Auto) 41 % (31-73) Lymphocytes (%) (Auto) 47 % (24-48) Monocytes (%) (Auto) 6 % (0-9) Eosinophils (%) (Auto) 6 % (0-3) Basophils (%) (Auto) 0 % (0-3) Neutrophils # (Auto) 2.6 x10^3/uL (1.8-7.7) Lymphocytes # (Auto) 3.0 x10^3/uL (1.0-4.8) Monocytes # (Auto) 0.4 x10^3/uL (0.0-1.1) Eosinophils # (Auto) 0.4 x10^3/uL (0.0-0.7) Basophils # (Auto) 0.0 x10^3/uL (0.0-0.2) Sodium Level 138 mmol/L (136-145) Potassium Level 5.2 mmol/L (3.5-5.1) Chloride Level 99 mmol/L (98-107) Carbon Dioxide Level 26 mmol/L (21-32) Anion Gap 13 (6-14) Blood Urea Nitrogen 57 mg/dL (7-20) Creatinine 6.4 mg/dL (0.6-1.0) Estimated GFR (Cockcroft-Gault) 7.9 Glucose Level 63 mg/dL (70-99) Calcium Level 8.6 mg/dL (8.5-10.1) Review of Systems Constitutional: yes: alert Ears/Nose/Throat: Yes: no symptom reported Eyes: Yes: no symptom reported Pulmonary: Yes no symptom reported Cardiovascular: Yes no symptom reported Gastrointestional: Yes: constipation Genitourinary: Yes: no symptom reported Musculoskeletal: Yes: no symptom reported Skin: Yes no symptom reported Psychiatric/Neurological: Yes: no symptom reported Endocrine: Yes: no symptom reported Physical Exam General Appearance: no apparent distress Skin: warm Respiratory: bilateral CTA Heart: S1S2 Abdomen: soft, bowel sounds present Genitourinary: bladder flat Extremities: pulses present Neurology: alert, oriented Musculoskeletal: Osteoarthritis Assessment Assessment IMP ESRD ANEMIA HTN NON COMPLIANCE DEMENTIA HYPERKALEMIA PLAN HD TOMORROW ENC COMPLIANCE SANTIAGO WHEN NEEDED MILES NESS MD Sep 30, 2019 13:15
--- NOTE | 2019-09-30 17:05 | NUR ---
Pt discharged to home with daughter. Discharge teaching done. Discussed the importance with dialysis compliance. Daughter verbalized understanding.
--- NOTE | 2019-10-01 10:44 | SNU/HH DC ---
DISCHARGE WITH HOME HEALTH DISCHARGE INFORMATION: Final Diagnosis: Problems Medical Problems: (1) Hyperkalemia Status: Acute (2) Missed dialysis Status: Acute Condition on Discharge: Stable CODE STATUS: Code Status: Full HOME HEALTH: Face to Face: I certify this patient is under my care and that I, or a nurse practitioner or physician's janitorial assistant working with me, had a face to face encounter that meets the physician face to face encounter requirements with this patient on []. Medical Complications: Other (esrd) [facility] For: Assess & Educate Safety RN For Eval/Treatment: Yes Physical Therapy For: Evalulation/Treatment Speech Language Pathology For: Evaluation/Treatment Home Health Aide For: Self-care GLASS FINISHER For: Community Resources Pt Meets Homebound Status: Unsteady balance w/ amb, POST DISCHARGE ORDERS: Activity Instructions for Disc: Activity as tolerated Weight Bearing Status after Di: As tolerated Bathing Instructions: Shower-keep dressing dry, No Tub Bath until see DIET AFTER DISCHARGE: Renal Wound/Incision Care: No wound care needed CHECKS AFTER DISCHARGE: Checks after discharge: Check blood press - daily, Weigh Yourself Daily FOLLOW-UP: Follow up with: Dialysis tomorrow Follow Up With: Follow up with primary care within a week or sooner if needed. TREATMENT/EQUIPMENT ORDERS: Adaptive Equipment Issued: None Infusion Equipment, home use: AV shunt CERTIFICATION STATEMENT: Certification Statement: Certification Statement: Based on the above finding, I certify that this patient is confined to the home and needs intermittent fpc care, physical therapy and/or speech therapy, or continues to need occupational therapy.~ This patient is under my care, and I have initiated the establishment of the plan of care.~ This patient will be followed by myself or a community physician who will periodically review the plan of care. Home Meds Active Scripts Mirtazapine (MIRTAZAPINE) 15 Mg Tablet, 30 MG PO QHS for depression for 30 Days, #60 TAB Prov:IVETH DAVIS MD 05/15/19 Aspirin (ASPIRIN EC) 81 Mg Tablet.dr, 81 MG PO DAILYWBKFT for prophalaxis for 30 Days, #30 TAB.SR Prov:IVETH DAVIS MD 05/15/19 Alprazolam (ALPRAZOLAM) 0.25 Mg Tablet, 0.25 MG PO PRN BID PRN for ANXIETY / AGITATION for 30 Days, #60 TAB Prov:Tonya LAMAR MD 07/25/18 Folic Acid/Vitamin B Comp W-C (CARROLL-MARYANNE TABLET) 0.8 Mg Tablet, 1 TAB PO DAILY for kidneys for 30 Days, #30 TAB 11 Refills Prov:Tonya LAMAR MD 07/23/18 Hydrocodone/Apap 10-325 (NORCO 10-325 TABLET) 1 Each Tablet, 1 TAB PO PRN Q6HRS PRN for PAIN for 30 Days, TAB 0 Refills Prov:MECHE ROGER MD 01/06/18 Atorvastatin Calcium (ATORVASTATIN CALCIUM) 40 Mg Tablet, 40 MG PO QHS, #30 Prov:Tonya LAMAR MD 07/20/15 Donepezil Hcl (ARICEPT) 5 Mg Tablet, 5 MG PO HS for 30 Days Prov:PIA PELAYO MD 05/20/15 Reported Medications Escitalopram Oxalate (LEXAPRO) 20 Mg Tablet, 1 TAB PO DAILY for Anxiety, #90 TAB 3 Refills 09/05/19 Clonidine Hcl (CLONIDINE HCL) 0.3 Mg Tablet, 0.3 MG PO BID for Hypertension, TAB 09/05/19 Hydralazine Hcl (HYDRALAZINE HCL) 50 Mg Tablet, 1 TAB PO BID for Hypertension, #180 TAB 3 Refills 09/05/19 Doxazosin Mesylate (DOXAZOSIN MESYLATE) 8 Mg Tablet, 1 TAB PO HS for hypertension, #30 TAB 5 Refills 09/05/19 Diazepam (DIAZEPAM) 5 Mg Tablet, 5 MG PO DAILY for Anxiety, TAB 09/05/19 Amlodipine Besylate (AMLODIPINE BESYLATE) 10 Mg Tablet, 10 MG PO DAILY for bp, TAB 04/14/19 Sucroferric Oxyhydroxide (VELPHORO) 500 Mg Tab.chew, 500 MG PO TID for replacement, TAB.CHEW 04/14/19 DEON DE SANTIAGO III DO Oct 01, 2019 10:43
== END 2019-09-30 17:18 | disposition home health service (06) | DRG 640 ==
LOC: ER 21:36 → ED HOLD 22:50 → 6 SOUTH 09-28 01:15
PROVIDERS: ADMIT Internal Medicine; ATTEND Internal Medicine
PROC: 5A1D70Z Performance of Urinary Filtration, Intermittent, Less than 6 Hours Per Day (ICD-10-PCS; principal; 2019-09-28)
PROC: 5A1D70Z Performance of Urinary Filtration, Intermittent, Less than 6 Hours Per Day (ICD-10-PCS; 2019-09-29)
DX: E87.5 Hyperkalemia (principal); N18.6 End stage renal disease; I13.2 Hypertensive heart and chronic kidney disease with heart failure and with stage 5 chronic kidney disease, or end stage renal disease; D64.9 Anemia, unspecified; E03.9 Hypothyroidism, unspecified; E78.5 Hyperlipidemia, unspecified; F03.90 Unspecified dementia, unspecified severity, without behavioral disturbance, psychotic disturbance, mood disturbance, and anxiety; F17.200 Nicotine dependence, unspecified, uncomplicated; I50.9 Heart failure, unspecified; J44.9 Chronic obstructive pulmonary disease, unspecified; I25.10 Atherosclerotic heart disease of native coronary artery without angina pectoris; F32.9 Major depressive disorder, single episode, unspecified; F41.9 Anxiety disorder, unspecified; K58.9 Irritable bowel syndrome, unspecified; M19.90 Unspecified osteoarthritis, unspecified site; I25.2 Old myocardial infarction; Z99.2 Dependence on renal dialysis; Z95.5 Presence of coronary angioplasty implant and graft; Z91.19 Patient's noncompliance with other medical treatment and regimen; Z86.73 Personal history of transient ischemic attack (TIA), and cerebral infarction without residual deficits; Z82.49 Family history of ischemic heart disease and other diseases of the circulatory system
CPT/HCPCS: 36415; 70450; 71045; 72125; 80048; 80053; 83735; 84100; 85014; 85018; 85025; 93005; 94644; 99285; J7613; 97535; G0378

== ENCOUNTER → 2020-01-18 | Outpatient (CLI) | payer MEDICARE, MEDICAID | END | disposition home or self-care (01) | LOC: LAB 13:23 → EDBD 13:23 | PROVIDERS: ATTEND Internal Medicine Nephrology | DX: N18.6 End stage renal disease (principal) | CPT/HCPCS: 36415; 84132 ==